=== PATIENT | female | born 1945 | race American Indian/Alaskan Native ===

== ENCOUNTER 2016-11-30 06:26 | Emergency (ER) | payer MEDICARE, OTHER ==
[~2016-11-30] VITALS: Ht 157.5 cm; Wt 90.3 kg
[~2016-11-30 06:26] MED LIST: ACETAMINOPHEN650 M1 PO; ASPIRIN EC325 MG PO; ASPIRIN EC81 MG PO; ATENOLOL100 MG PO; B-12500 MCG PO; CALCIO DEL MAR500 MG PO; CALCIUM 600 +1 EAC3 PO; CALCIUM600 MG PO; CLARITIN10 M2 PO; CLONAZEPAM0.5 MG PO; DETROL LA2 MG PO; DETROL2 MG PO; DIALYVITE V5000 UNIT PO; DILTIAZEM 24HR120 MG PO; DILTIAZEM ER180 MG PO; DOCUSATE SODIU100 MG PO; DUCODYL5 MG PO; ELIQUIS5 MG PO; FERROUS SULFAT325 MG PO; FOLIC ACID1 MG PO; FUROSEMIDE20 MG PO; K-TAB10 MEQ PO; KLOR-CON 1010 MEQ PO; LASIX20 MG PO; LEVOFLOXACIN500 MG PO; LEVOTHYROXINE75 MCG PO; LEVOTHYROXINE88 MCG PO; MAG-OXIDE400 MG PO; MELATONIN1 MG PO; METOPROLOL SUC200 MG PO; MORPHINE SULFAT15 M1 PO; MORPHINE SULFAT30 M1 PO; MORPHINE SULFAT30 M2 PO; NITROGLYCERIN0.4 MG SL; NYSTOP60 GM TOP; OMEPRAZOLE20 MG PO; PERCOCET 10-321 EACH PO; POTASSIUM CHLO10 MEQ PO; POTASSIUM CHLO20 ME1 PO; PREVACID15 MG PO; PRILOSEC20 MG PO; PV NEURO VITE1 EACH PO; SENNA LAX8.6 MG PO; SERTRALINE HCL100 MG PO; TOPROL XL100 MG PO; TORSEMIDE5 MG PO; TRIAMTERENE-HC1 EAC1 PO; TRIAMTERENE-HC1 EAC3 PO; ZOLOFT100 MG PO
[2016-11-30] MEDS ORDERED: ZOFRAN ODT4 MG PO (08:12)
--- NOTE | 2016-11-30 17:36 | EKG ---
[facility] [address] [facility] [place] [address] Signed Atrial fibrillation with rapid ventricular response Left axis deviation Pulmonary disease pattern T wave abnormality, consider anterior ischemia Abnormal ECG When compared with ECG of 14-SEP-2016 20:31, Questionable change in QRS axis T wave inversion no longer evident in Inferior leads T wave inversion no longer evident in Lateral leads Confirmed by MEMO HERZOG MD ([id number]) on 11/30/2016 5:36:40 PM Electronically Signed By: MEMO HERZOG MD 11/30/16 1736 PATIENT NAME: TIM MOMIN ABHAY Electrocardiogram DATE OF : 41 PHYSICIAN: MEMO HERZOG MD REPORT #: [id number] REPORT IS CONFIDENTIAL AND NOT TO BE RELEASED WITHOUT AUTHORIZATION
== END 2016-11-30 10:49 | disposition home or self-care (01) ==
LOC: ED 06:26
DX: G89.29 Other chronic pain (principal); M53.3 Sacrococcygeal disorders, not elsewhere classified; I48.91 Unspecified atrial fibrillation; Z86.73 Personal history of transient ischemic attack (TIA), and cerebral infarction without residual deficits; I10 Essential (primary) hypertension; D51.0 Vitamin B12 deficiency anemia due to intrinsic factor deficiency; R11.2 Nausea with vomiting, unspecified; Z90.710 Acquired absence of both cervix and uterus; Z98.51 Tubal ligation status; Z90.49 Acquired absence of other specified parts of digestive tract; Z88.0 Allergy status to penicillin; Z88.4 Allergy status to anesthetic agent; Z88.5 Allergy status to narcotic agent; Z88.1 Allergy status to other antibiotic agents; Z88.8 Allergy status to other drugs, medicaments and biological substances; Z91.041 Radiographic dye allergy status; Z79.891 Long term (current) use of opiate analgesic; Z79.899 Other long term (current) drug therapy
CPT/HCPCS: 71010; 80053; 84484; 85025; 93005; 93010; 96361; 96374; 96375; 99283; J1170; J2405; J7030

== ENCOUNTER 2017-01-24 17:54 | Emergency (ER) | payer MEDICARE, OTHER ==
[~2017-01-24] VITALS: Ht 157.5 cm; Wt 88.5 kg
[~2017-01-24 17:54] MED LIST changes: +ZOFRAN ODT4 MG PO
[2017-01-24] MEDS ORDERED: DICYCLOMINE HCL20 MG PO (23:53)
== END 2017-01-25 00:03 | disposition home or self-care (01) ==
LOC: ED 17:54
DX: K52.9 Noninfective gastroenteritis and colitis, unspecified (principal); I10 Essential (primary) hypertension; Z86.73 Personal history of transient ischemic attack (TIA), and cerebral infarction without residual deficits; Z90.710 Acquired absence of both cervix and uterus; Z98.51 Tubal ligation status; Z98.890 Other specified postprocedural states; Z96.651 Presence of right artificial knee joint; Z96.641 Presence of right artificial hip joint; Z88.1 Allergy status to other antibiotic agents; Z88.5 Allergy status to narcotic agent; Z88.8 Allergy status to other drugs, medicaments and biological substances; Z91.038 Other insect allergy status; Z79.899 Other long term (current) drug therapy
CPT/HCPCS: 74177; 80053; 81001; 83690; 85025; 87077; 87088; 87186; 96361; 96374; 96375; 96376; 99284; J1170; J2405; J7030; Q9967

== ENCOUNTER 2018-07-28 11:23 | Inpatient (IN) | payer MEDICARE, OTHER ==
[~2018-07-28] VITALS: Ht 157.5 cm; Wt 60.3 kg
--- OUTSIDE RECORDS SUMMARY | ~2018-07-28 | XMS | Encounter Summary ---
Demographics + + + | Address | [address] | | | [place] [address] | + + + | Home Phone | | + + + | Preferred Language | Unknown | + + + | Marital Status | | + + + | Roman Catholic Affiliation | 1041 | + + + | Race | Unknown | + + + | Ethnic Group | Unknown | + + + Author + + + | Author | [facility] | | | and [place] | + + + | Organization | [facility] | | | and [place] | + + + | Address | Unknown | + + + | Phone | Unavailable | + + + Support + + +---------+ + | Name | Relationship | Address | Phone | + + +---------+ + | TanmayGirish | ECON | Unknown | | + + +---------+ + | Shakila Rosas | ECON | Unknown | | + + +---------+ + Care Team Providers + +------+ + | Care Lead Etl Developer Name | Role | Phone | + +------+ + | No, Physician | PCP | Unavailable | + +------+ + Reason for Visit Auth/Cert +--------+--------+ + + + + | Status | Reason | Specialty | Diagnoses / | Referred By | Referred To | | | | | Procedures | Contact | Contact | +--------+--------+ + + + + | | | | | | | +--------+--------+ + + + + Encounter Details +--------+ + + + + | Date | Type | Department | Care Team | Description | +--------+ + + + + | 07/21/ | Home Care | PR[facility]ARTIN | Lisa Kearns RN | SN REPEAT VISIT | | 2018 | Visit | [place] [address] | | | | | | [place] | | | | | | [address] | | | | | | [phone] | | | +--------+ + + + + Social History + +-------+ +--------+------+ | Tobacco Use | Types | Packs/Day | Years | Date | | | | | Used | | + +-------+ +--------+------+ | Never Smoker | | | | | + +-------+ +--------+------+ + +---+---+---+ | Smokeless Tobacco: | | | | | Never Used | | | | + +---+---+---+ + + +---------+ + | Alcohol Use | Drinks/We | oz/Week | Comments | | | ek | | | + + +---------+ + | No | | | | + + +---------+ + + + + | Sex Assigned at | Date Recorded | | | | + + + | Not on file | | + + + + + + + | Job Start Date | Occupation | Industry | + + + + | Not on file | Not on file | Not on file | + + + + + + + + | Travel History | Travel Start | Travel End | + + + + + + | No recent travel history available. | + + documented as of this encounter Last Filed Vital Signs + + + + | Vital Sign | Reading | Time Taken | + + + + | Blood Pressure | 98/48 | 07/21/2018952 PDT | + + + + | Pulse | 60 | 07/21/2018952 PDT | + + + + | Temperature | 35.9 C (96.7 F) | 07/21/2018952 PDT | + + + + | Respiratory Rate | 16 | 07/21/2018952 PDT | + + + + | Oxygen Saturation | 95% | 07/21/2018952 PDT | + + + + | Inhaled Oxygen | - | - | | Concentration | | | + + + + | Weight | - | - | + + + + | Height | - | - | + + + + | Body Mass Index | - | - | + + + + documented in this encounter Plan of Treatment +--------+ + + + + | Date | Type | Specialty | Care Team | Description | +--------+ + + + + | 07/28/ | Home Care | Home Health Services | Won Zafar, | | | 2019 | Visit | | CONCRETE CURER [address] | | | | | | [place] | | | | | | [address] | | +--------+ + + + + | 08/01/ | Home Care | Home Health Services | | | | 2018 | Visit | | | | +--------+ + + + + | 08/01/ | Home Care | Home Health Services | Won Zafar, | | | 2018 | Visit | | CONCRETE [facility]ER [address] | | | | | | [place] | | | | | | [address] | | +--------+ + + + + | 08/03/ | Home Care | Home Health Services | Won Zafar, | | | 2018 | Visit | | CONCRETE [facility] [address] | | | | | | [place] | | | | | | [address] | | +--------+ + + + + | 08/04/ | Home Care | Home Health Services | Lisa Kearns RN | | | 2018 | Visit | | | | +--------+ + + + + | 08/08/ | Home Care | Home Health Services | Lisa Kearns RN | | | 2018 | Visit | | | | +--------+ + + + + | 08/08/ | Home Care | Home Health Services | Won Zafar, | | | 2018 | Visit | | CONCR[facility] [address] | | | | | | [place] | | | | | | [address] | | +--------+ + + + + | 08/10/ | Home Care | Home Health Services | Billy Jett, | | | 2018 | Visit | | PT [address] | | | | | | [place] | | | | | | [address] | | | | | | | | +--------+ + + + + | 08/11/ | Appointment | Home Health Services | Lisa Kearns RN | | | 2019 | | | | | +--------+ + + + + documented as of this encounter Visit Diagnoses Not on filedocumented in this encounter"
--- OUTSIDE RECORDS SUMMARY | ~2018-07-28 | XMS | Encounter Summary ---
Demographics + + + | Address | [address] | | | [place] [address] | + + + | Home Phone | | + + + | Preferred Language | Unknown | + + + | Marital Status | | + + + | Temple Affiliation | 1041 | + + + | Race | Unknown | + + + | Ethnic Group | Unknown | + + + Author + + + | Author | [facility] | | | and [place] | + + + | Organization | [facility] | | | and [place] | + + + | Address | Unknown | + + + | Phone | Unavailable | + + + Support + + +---------+ + | Name | Relationship | Address | Phone | + + +---------+ + | Girish Donato | ECON | Unknown | | + + +---------+ + | Shakila Rosas | ECON | Unknown | | + + +---------+ + Care Team Providers + +------+ + | Care Product Marketing Consultant Name | Role | Phone | + +------+ + | Juan Mcclain DO | PCP | | + +------+ + Reason for Visit [...] | +--------+ + + + + | 06/17/ | Home Care | PROV JULISSA MARTIN | Nicole Hernandez | SN REPEAT VISIT | | 2019 | Visit | [place] [address] | [place] [address] | | | | | [place] | | | | | | [address] | | | | | | [phone] | | | +--------+ + + + [...] + + + | Blood Pressure | 94/60 | 06/17/20181612 PDT | + + + + | Pulse | 57 | 06/17/20181612 PDT | + + + + | Temperature | 35.9 C (96.6 F) | 06/17/20181612 PDT | + + + + | Respiratory Rate | 16 | 06/17/20181612 PDT | + + + + | Oxygen Saturation | 98% | 06/17/20181612 PDT | + + + + | [...] | | 2019 | Visit | | APPELLATE [facility]FEREE [address] | | | | | | [place] | | | | | | [address] | | +--------+ + + + + | 08/01/ | Home Care | Home Health Services | | | | 2018 | Visit | | | | +--------+ + + + + | 08/01/ | Home Care | Home Health Services | Won Zafar, | | | 2018 | Visit | | APPELLATE CONFEREE [address] | | | | | | [place] | | | | | | [address] | | +--------+ + + + + | 08/03/ | Home Care | Home Health Services | Won Zafar, | | | 2018 | Visit | | [facility] [address] | | | | | | [place] | | | | | | [address] | | +--------+ + + + + | 08/04/ | Home Care | Home Health Services | Lisa Kearns RN | | | 2019 | Visit | | | | +--------+ + + + + | 08/08/ | Home Care | Home Health Services | Lisa Kearns RN | | | 2019 | Visit | | | | +--------+ + + + + | 08/08/ | Home Care | Home Health Services | Won Zafar, | | | 2018 | Visit | | [facility] [address] | | | | | | [place] | | | | | | [address] | | +--------+ + + + + | 08/10/ | Home Care | Home Health Services | Billy Jett, | | | 2019 | Visit | | PT [address] | | | | | | [place] | | | | | | [address] | | | | | | | | +--------+ + + + + | 08/11/ | Appointment | Home Health Services | Lisa Kearns RN | | | 2019 | | | | | +--------+ + + + + documented as of this encounter Visit Diagnoses Not on filedocumented in this encounter"
--- OUTSIDE RECORDS SUMMARY | ~2018-07-28 | XMS | Encounter Summary ---
Demographics + + + | Address | [address] | | | [place] [address] | + + + | Home Phone | | + + + | Preferred Language | Unknown | + + + | Marital Status | | + + + | Sabianism Affiliation | 1041 | + + + | Race | Unknown | + + + | Ethnic Group | Unknown | + + + Author + + + | Author | [facility] | | | and [place] | + + + | Organization | [facility] | | | [...] Team Providers + +------+ + | Care Itinerant Teacher Assistant Name | Role | Phone | + [...] | +--------+ + + + + | 07/27/ | Home Care | STEVE MARTIN | Rukhsana, | TELEPHONE ENCOUNTER | | 2018 | Visit | [place] [address] | Marlyn Clemens RN | | | | | [place] | | | | | | [address] | | | | | | [phone] | | | +--------+ + + + [...] + + documented as of this encounter Plan of Treatment +--------+ + + + + | Date | Type | Specialty | Care Team | Description | +--------+ + + + + | 07/28/ | Home Care | Home Health Services | Won Zafar, | | | 2018 | Visit | | PARTS PICKER [address] | | | | | | [place] | | | | | | [address] | | +--------+ + + + + | 08/01/ | Home Care | Home Health Services | | | | 2018 | Visit | | | | +--------+ + + + + | 08/01/ | Home Care | Home Health Services | Won Zafar, | | | 2018 | Visit | | [facility] [facility] [address] | | | | | | [place] | | | | | | [address] | | +--------+ + + + + | 08/03/ | Home Care | Home Health Services | Won Zafar, | | | 2018 | Visit | | [facility]S [facility] [address] | | | | | | [place] | | | | | | [address] | | +--------+ + + + + [...] | | 2018 | Visit | | [facility] [address] | | | | | | [place] | | | | | | [address] | | +--------+ + + + + | 08/10/ | Home Care | Home Health Services | Billy Jett, | | | 2019 | Visit | | PT [address] | | | | | | [place] | | | | | | [address] | | | | | | | | +--------+ + + + + | 08/11/ | Appointment | Home Health Services | Lisa Kearns RN | | | 2019 | | | | | +--------+ + + + + documented as of this encounter Visit Diagnoses Not on filedocumented in this encounter"
--- OUTSIDE RECORDS SUMMARY | ~2018-07-28 | XMS | Encounter Summary ---
Demographics + + + | Address | [address] | | | [place] [address] | + + + | Home Phone | | + + + | Preferred Language | Unknown | + + + | Marital Status | | + + + | Gnosticist Affiliation | 1041 | + + + | Race | Unknown | + + + | Ethnic Group | Unknown | + + + Author + + + | Author | [facility] | | | and [place] | + + + | Organization | [facility] | | [...] Team Providers + +------+ + | Care Triage Specialist Name | Role | Phone | + [...] | +--------+ + + + + | 07/25/ | Home Care | PROV JULISSA MARTIN | Lisa Kearns RN | SN REPEAT VISIT | | 2018 | Visit | [place] [address] | | | | | | [place] | | | | | | [address] | | | | | | [phone] | | | +--------+ + + + [...] + + + | Blood Pressure | 104/48 | 07/25/2018958 PDT | + + + + | Pulse | 52 | 07/25/2018958 PDT | + + + + | Temperature | 36.8 C (98.2 F) | 07/25/2018958 PDT | + + + + | Respiratory Rate | 16 | 07/25/2018958 PDT | + + + + | Oxygen Saturation | 92% | 07/25/2018958 PDT | + + + + | [...] | | 2019 | Visit | | PRODUCTION OPERATIONS ENGINEER [address] | | | | | | [place] | | | | | | [address] | | +--------+ + + + + | 08/01/ | Home Care | Home Health Services | | | | 2018 | Visit | | | | +--------+ + + + + | 08/01/ | Home Care | Home Health Services | Won Zafar, | | | 2018 | Visit | | PRODUCTION OPERATIONS ENGINEER [address] | | | | | | [place] | | | | | | [address] | | +--------+ + + + + | 08/03/ | Home Care | Home Health Services | Won Zafar, | | | 2018 | Visit | | PRODUCTION OPERATIONS ENGINEER [address] | | | | | | [place] | | | | | | [address] | | +--------+ + + + + [...] | | 2018 | Visit | | PRODUCTION OPERATIONS ENGINEER [address] | | | | | | [place] | | | | | | [address] | | +--------+ + + + + | 08/10/ | Home Care | Home Health Services | Billy Jett, | | | 2018 | Visit | | PT [address] | | | | | | [place] | | | | | | [address] | | | | | | | | +--------+ + + + + | 08/11/ | Appointment | Home Health Services | Lisa Kearns RN | | | 2019 | | | | | +--------+ + + + + documented as of this encounter Visit Diagnoses Not on filedocumented in this encounter"
--- OUTSIDE RECORDS SUMMARY | ~2018-07-28 | XMS | Encounter Summary ---
Demographics + + + | Address | [address] | | | [place] [address] | + + + | Home Phone | | + + + | Preferred Language | Unknown | + + + | Marital Status | | + + + | Zoroastrianism Affiliation | 1041 | + + + | Race | Unknown | + + + | Ethnic Group | Unknown | + + + Author + + + | Author | [facility] | | | and [place] | + + + | Organization | [facility] | | [...] Team Providers + +------+ + | Care Accounts Collector Name | Role | Phone | + [...] [place] | | | | | | [address] | | | | | | [phone] | | | +--------+ + + + [...] Home Health Services | | | | 2019 | Visit | | | | +--------+ + + + + | 08/01/ | Home Care | Home Health Services | Won Zafar, | | | 2018 | Visit | | [facility] [address] | | | | | | [place] | | | | | | [address] | | +--------+ + + + + | 08/03/ | Home Care | Home Health Services | Won Zafar, | | | 2018 | Visit | | [facility] [address] | | | | | | [place] | | | | | | [address] | | +--------+ + + + + [...] | 2018 | Visit | | [facility] [address] | | | | | | [place] | | | | | | [address] | | +--------+ + + + + | 08/10/ | Home Care | Home Health Services | Billy Jett, | | | 2018 | Visit | | PT [address] | | | | | | [place] | | | | | | [address] | | | | | | | | +--------+ + + + + | 08/11/ | Appointment | Home Health Services | Lisa Kearns RN | | | 2018 | | | | | +--------+ + + + + documented as of this encounter Visit Diagnoses Not on filedocumented in this encounter"
--- OUTSIDE RECORDS SUMMARY | ~2018-07-28 | XMS | Encounter Summary ---
Demographics + + + | Address | [address] | | | [place] [address] | + + + | Home Phone | | + + + | Preferred Language | Unknown | + + + | Marital Status | | + + + | Sabianist Affiliation | 1041 | + + + | Race | Unknown | + + + | Ethnic Group | Unknown | + + + Author + + + | Author | [facility] | | | and [place] | + + + | Organization | [facility] | | | [...] Team Providers + +------+ + | Care Certified Hearing Instrument Dispenser Name | Role | Phone | + +------+ + | Oscar Hodgson DO | PCP | | + +------+ [...] | +--------+ + + + + | 07/11/ | Home Care | [facility] | Won Zafar, | PT REPEAT VISIT | | 2019 | Visit | [place] [address] | RHEOLOGIST [address] | | | | | [place] | | | | | [address] | [address] | | | | | [phone] | | | +--------+ + + + [...] this encounter Last Filed Vital Signs + +---------+ + | Vital Sign | Reading | Time Taken | + +---------+ + | Blood Pressure | 95/60 | 07/11/20181119 PDT | + +---------+ + | Pulse | 50 | 07/11/20181119 PDT | + +---------+ + | Temperature | - | - | + +---------+ + | Respiratory Rate | - | - | + +---------+ + | Oxygen Saturation | 97% | 07/11/20181119 PDT | + +---------+ + | Inhaled Oxygen | - | - | | Concentration | | | + +---------+ + | Weight | - | - | + +---------+ + | Height | - | - | + +---------+ + | Body Mass Index | - | - | + +---------+ + documented in this encounter Plan of Treatment +--------+ + + + + | Date | Type | Specialty | Care Team | Description | +--------+ + + + + | 07/28/ | Home Care | Home Health Services | Won Zafar, | | | 2018 | Visit | | RHEOLOGIST [address] | | | | | | [place] | | | | | | [address] | | +--------+ + + + + | 08/01/ | Home Care | Home Health Services | | | | 2018 | Visit | | | | +--------+ + + + + | 08/01/ | Home Care | Home Health Services | Won Zafar, | | | 2018 | Visit | | RHEOLOGIST [address] | | | | | | [place] | | | | | | [address] | | +--------+ + + + + | 08/03/ | Home Care | Home Health Services | Won Zafar, | | | 2018 | Visit | | RHEOLOGIST [address] | | | | | | [place] | | | | | | [address] | | +--------+ + + + + | 08/04/ | Home Care | Home Health Services | Lisa Kearns RN | | | 2018 | Visit | | | | +--------+ + + + + | 08/08/ | Home Care | Home Health Services | Lisa Kearns RN | | 2018 | Visit | | | | +--------+ + + + + | 08/08/ | Home Care | Home Health Services | Won Zafar, | | | 2018 | Visit | | RHEOLOGIST [address] | | | | | | [place] | | | | | | [address] | | +--------+ + + + + | 08/10/ | Home Care | Home Health Services | Billy Jett, | | | 2018 | Visit | | PT [address] | | | | | | [place] | | | | | | [address] | | | | | | | | +--------+ + + + + | 08/11/ | Appointment | Home Health Services | Lisa Kearns RN | | | 2018 | | | | | +--------+ + + + + documented as of this encounter Visit Diagnoses Not on filedocumented in this encounter"
--- OUTSIDE RECORDS SUMMARY | ~2018-07-28 | XMS | Clinical Summary ---
Demographics + + + | Address | [address] | | | [place] [address] | + + + | Home Phone | | + + + | Preferred Language | Unknown | + + + | Marital Status | Unknown | + + + | Confucianism Affiliation | 1041 | + + + | Race | Unknown | + + + | Ethnic Group | Unknown | + + + Author + + + | Author | [facility] | + + + | Organization | [facility] | + + + | Address | Unknown | + + + | Phone | Unavailable | + + + Support + + +---------+ + | Name | Relationship | Address | Phone | + + +---------+ + | Margaret Silva | ECON | Unknown | | + + +---------+ + | Shakila Rosas | ECON | Unknown | | + + +---------+ + | Girish Donato | ECON | Unknown | | + + +---------+ + Care Team Providers + +------+ + | Care Hydroelectric Production Manager Name | Role | Phone | + +------+ + | Juan Mcclain MD | PP | | + +------+ + Allergies + + + + + + | Active Allergy | Reactions | Severity | Noted | Comments | | | | | Date | | + + + + + + | Adhesive Tape | Rash | Medium | 10/11/19 | | | | | | 18 | | + + + + + + | Bee Venom | Swelling | High | 09/22/19 | | | | | | 17 | | + + + + + + | Butorphanol | Hallucinations | Medium | 09/22/19 | | | | | | 17 | | + + + + + + | Codeine | Hives, Rash | High | 09/22/19 | Hypersensitivity | | | | | 17 | | + + + + + + | Diphenhydramine | Other (See Comments) | Medium | 09/22/19 | Drowsiness | | | | | 17 | | + + + + + + | Gabapentin | Sedation | Low | 09/22/19 | | | | | | 17 | | + + + + + + | Hydrochlorothiazide | Syncope | Medium | 09/22/19 | | | | | | 17 | | + + + + + + | Ibuprofen | Other (See Comments) | Medium | 09/22/19 | Stomach pains | | | | | 17 | | + + + + + + | Indomethacin | Hives, Rash | High | 09/22/19 | | | | | | 17 | | + + + + + + | Lisinopril | Other (See Comments) | Medium | 09/22/19 | Dry cough | | | | | 17 | | + + + + + + | Methadone | Hallucinations | Medium | 09/22/19 | | | | | | 17 | | + + + + + + | Neomycin | Rash | Medium | 09/22/19 | | | | | | 17 | | + + + + + + | Nifedipine | Other (See Comments) | Medium | 09/22/19 | Low blood | | | | | 17 | pressures | + + + + + + | Penicillins | Swelling | Medium | 09/22/19 | | | | | | 17 | | + + + + + + | Pentazocine | Hives, Rash | High | 09/22/19 | | | | | | 17 | | + + + + + + | Tramadol | Hallucinations | Medium | 09/22/19 | | | | | | 17 | | + + + + + + | Zolpidem | Hallucinations | Medium | 09/22/19 | | | | | | 17 | | + + + + + + Current Medications + + +---------+---------+------+------+-------+ | Prescription | Sig. | Disp. | Refills | Star | End | Statu | | | | | | t | Date | s | | | | | | Date | | | + + +---------+---------+------+------+-------+ | Calcium | Take 600 mg by mouth | | | | | Activ | | Carbonate-Vitamin D | 2 (two) times | | | | | e | | (CALCIUM-CARB 600 + | daily. | | | | | | | D) 600-125 MG-UNIT | | | | | | | | TABS | | | | | | | + + +---------+---------+------+------+-------+ | tolterodine | Take 2 mg by mouth | | | | | Activ | | (DETROL LA) 2 MG 24 | daily. | | | | | e | | hr capsule | | | | | | | + + +---------+---------+------+------+-------+ | apixaban (ELIQUIS) | Take 5 mg by mouth 2 | | | | | Activ | | 5 MG tablet | (two) times daily. | | | | | e | + + +---------+---------+------+------+-------+ | folic acid | Take 1 mg by mouth | | | | | Activ | | (FOLVITE) 1 MG | every morning. | | | | | e | | tablet | | | | | | | + + +---------+---------+------+------+-------+ | levothyroxine | Take 88 mcg by mouth | | | | | Activ | | (SYNTHROID) 88 MCG | every morning | | | | | e | | tablet | before breakfast. | | | | | | + + +---------+---------+------+------+-------+ | Loratadine 10 MG | Take 10 mg by mouth | | | | | Activ | | CAPS | daily. | | | | | e | + + +---------+---------+------+------+-------+ | magnesium oxide | Take 400 mg by mouth | | | | | Activ | | (MAG-OX) 400 MG | daily. | | | | | e | | tablet | | | | | | | + + +---------+---------+------+------+-------+ | Melatonin 1 MG | Take 2 mg by mouth | | | | | Activ | | CAPS | nightly. | | | | | e | + + +---------+---------+------+------+-------+ | morphine (MS | Take 30 mg by mouth | | | | | Activ | | CONTIN) 30 MG 12 hr | 2 (two) times daily. | | | | | e | | tablet | | | | | | | + + +---------+---------+------+------+-------+ | nitroGLYCERIN | Place 0.4 mg under | | | | | Activ | | (NITROSTAT) 0.4 MG | the tongue every 5 | | | | | e | | SL tablet | (five) minutes as | | | | | | | | needed for Chest | | | | | | | | pain. | | | | | | + + +---------+---------+------+------+-------+ | omeprazole | Take 20 mg by mouth | | | | | Activ | | (PRILOSEC) 20 MG | every morning before | | | | | e | | capsule | breakfast. | | | | | | + + +---------+---------+------+------+-------+ | | Take 1 tablet by | | | | | Activ | | oxyCODONE-acetaminop | mouth every 8 | | | | | e | | hen (PERCOCET) | (eight) hours as | | | | | | | 10-325 MG per tablet | needed for Pain. | | | | | | | | Takes 1-3 pills per | | | | | | | | day | | | | | | + + +---------+---------+------+------+-------+ | sertraline | Take 100 mg by mouth | | | | | Activ | | (ZOLOFT) 100 MG | nightly. | | | | | e | | tablet | | | | | | | + + +---------+---------+------+------+-------+ | docusate sodium | Take 100 mg by mouth | | | | | Activ | | (COLACE) 100 MG | daily as needed. | | | | | e | | capsule | | | | | | | + + +---------+---------+------+------+-------+ | ondansetron | Take 4 mg by mouth | | | | | Activ | | (ZOFRAN-ODT) 4 MG | every 6 (six) hours | | | | | e | | disintegrating | as needed for | | | | | | | tablet | Nausea. Takes 3 | | | | | | | | times per month | | | | | | + + +---------+---------+------+------+-------+ | Multiple | Take 1 tablet by | | | | | Activ | | Vitamins-Minerals | mouth daily. | | | | | e | | (MULTIVITAMIN WITH | | | | | | | | MINERALS) tablet | | | | | | | + + +---------+---------+------+------+-------+ | carbamide peroxide | 5 drops as needed. | | | | | Activ | | (DEBROX) 6.5 % otic | | | | | | e | | solution | | | | | | | + + +---------+---------+------+------+-------+ | loperamide | Take 2 mg by mouth | | | | | Activ | | (IMODIUM) 2 MG | as needed for | | | | | e | | capsule | Diarrhea. 1-2 times | | | | | | | | per week | | | | | | + + +---------+---------+------+------+-------+ | bisoprolol | Take 1 tablet by | 30 | 11 | 09/25 | 09/25 | Activ | | (ZEBETA) 10 MG | mouth nightly. | tablet | | 6/20 | 20 | e | | tablet | | | | 18 | 19 | | + + +---------+---------+------+------+-------+ | digoxin (LANOXIN) | Take 1 tablet by | 30 | 11 | 09/25 | 09/25 | Activ | | 0.125 MG tablet | mouth daily. | tablet | | 6/20 | 6/20 | e | | | | | | 18 | 19 | | + + +---------+---------+------+------+-------+ | potassium chloride | Take 1 capsule by | 30 | 11 | 07 | 09/25 | Activ | | (MICRO-K) 10 MEQ CR | mouth daily. | capsule | | 6/20 | 6/20 | e | | capsule | | | | 18 | 19 | | + + +---------+---------+------+------+-------+ | furosemide (LASIX) | Take 1 tablet by | 30 | 11 | 07/ | | Activ | | 20 MG tablet | mouth daily. | tablet | | 0/20 | | e | | | | | | 18 | | | + + +---------+---------+------+------+-------+ | rOPINIRole | Take 1 mg by mouth | | | | | Activ | | (REQUIP) 1 MG tablet | nightly. | | | | | e | + + +---------+---------+------+------+-------+ | bisacodyl | Take 10 mg by mouth | | | | | Activ | | (DULCOLAX) 5 MG EC | daily as needed for | | | | | e | | tablet | Constipation. Take | | | | | | | | with 8 oz. water. | | | | | | + + +---------+---------+------+------+-------+ Active Problems + + + | Problem | Noted Date | + + + | Chronic systolic heart failure (HCC) | 10/10/2017 | + + + | History of stroke with residual deficit | 10/10/2017 | + + + | Hypokalemia | 10/10/2017 | + + + | Thyroid disease | 10/10/2017 | + + + | Current use of fci anticoagulation | 10/10/2017 | + + + | Atrial fibrillation (HCC) | 06/07/2016 | + + + + + | Overview: with RVR | + + + +---+ | Dilated cardiomyopathy (HCC) | | + +---+ | HTN, goal below 140/90 | | + +---+ + + | Overview: many years | + + + +---+ | CVA (cerebral vascular accident) | | + +---+ + + | Overview: x 3 - 2000 > tPA, 2002 > tPA, 2003, residual right | | sided hemiparesis | + + Resolved Problems +---------+--------+ + | Problem | Noted | Resolved | | | Date | Date | +---------+--------+ + | Anemia | | | | | | 8 | +---------+--------+ + + + | Overview: History of pernicious anemia | + + Family History + + +------+ + | Medical History | Relation | Name | Comments | + + +------+ + | Coronary art dis | Brother | | | + + +------+ + | Coronary art dis | Brother | | | + + +------+ + | Diabetes type I | Daughter | | | + + +------+ + | Diabetes type I | Daughter | | | + + +------+ + | Aneurysm | Mother | | | + + +------+ + | Heart disease | Mother | | | + + +------+ + | Hypertension | Mother | | | + + +------+ + | Lupus | Sister | | | + + +------+ + | Lupus | Sister | | | + + +------+ + | Leukemia | Son | | | + + +------+ + + +------+ + + | Relation | Name | Status | Comments | + +------+ + + | Brother | | | half sibling | + +------+ + + | Brother | | | half sibling | + +------+ + + | Brother | | | half sibling | + +------+ + + | Brother | | Alive | half sibling | + +------+ + + | Brother | | Alive | half sibling | + +------+ + + | Brother | | Alive | half sibling | + +------+ + + | Daughter | | Alive | | + +------+ + + | Daughter | | Alive | | + +------+ + + | Daughter | | Alive | | + +------+ + + | Father | | | patient adopted-no known history | + +------+ + + | Mother | | | brain aneurysm | + +------+ + + | Sister | | | half sibling | + +------+ + + | Sister | | | half sibling | + +------+ + + | Sister | | | half sibling | + +------+ + + | Sister | | Alive | half sibling | + +------+ + + | Son | | | | + +------+ + + Social History + +-------+ +--------+------+ | Tobacco Use | Types | Packs/Day | Years | Date | | | | | Used | | + +-------+ +--------+------+ | Passive Smoke | | | | | | Exposure - Never | | | | | | Smoker | | | | | + +-------+ +--------+------+ + +---+---+---+ | Smokeless Tobacco: | | | | | Never Used | | | | + +---+---+---+ + + +---------+ + | Alcohol Use | Drinks/We | oz/Week | Comments | | | ek | | | + + +---------+ + | No | 0 | 0.0 | social drinker in younger years | | | Standard | | | | | drinks or | | | | | | | | | | equivalen | | | | | t | | | + + +---------+ + + + + | Sex Assigned at | Date Recorded | | | | + + + | Not on file | | + + + Last Filed Vital Signs + + + + | Vital Sign | Reading | Time Taken | + + + + | Blood Pressure | 116/64 | 03/02/2018 2:25 PM PST | + + + + | Pulse | 93 | 03/02/2018 2:25 PM PST | + + + + | Temperature | - | - | + + + + | Respiratory Rate | 18 | 03/02/2018 2:25 PM PST | + + + + | Oxygen Saturation | 100% | 03/02/2018 2:25 PM PST | + + + + | Inhaled Oxygen | - | - | | Concentration | | | + + + + | Weight | 66.1 kg (145 lb 11.2 | 03/02/2018 2:25 PM PST | | | oz) | | + + + + | Height | 157.5 cm (5' 2") | 03/02/2018 2:25 PM PST | + + + + | Body Mass Index | 26.65 | 03/02/2018 2:25 PM PST | + + + + Plan of Treatment +--------+---------+ + + + | Date | Type | Specialty | Care Team | Description | +--------+---------+ + + + | 08/28/ | Office | | Joanne Kaiser | | | 2019 | Visit | | [address] | | | | | | [address] | | | | | | [place] [address] | | | | | | [phone] | | | | | | | | +--------+---------+ + + + + + + + + | Health Maintenance | Due Date | Last Done | Comments | + + + + + | Vaccine: | | | | | Dtap/Tdap/Td (1 - | 3 | | | | Tdap) | | | | + + + + + | Breast Cancer | | | | | Screening | 4 | | | | (Mammogram) | | | | + + + + + | Colon Cancer | | | | | Screening | 4 | | | | (Colonoscopy) | | | | + + + + + | DEXA SCAN SCREENING | | | | | | 9 | | | + + + + + | Vaccine: | | | | | Pneumococcal 65+ | 9 | | | | Low/Medium Risk (1 | | | | | of 2 - PCV13) | | | | + + + + + | Vaccine: Influenza | | | | | (Season Ended) | 9 | | | + + + + + Results Not on filefrom Last 3 Months Insurance + +--------+ +------+-------+ + | Payer | Benefi | Subscriber | Type | Phone | Address | | | t Plan | ID | | | | | | / | | | | | | | Group | | | | | + +--------+ +------+-------+ + | MEDICARE | MEDICA | [id number] | | | [address] | | | RE | | | | [place] [address] | | | IP-OP | | | | | + +--------+ +------+-------+ + | MEDICAID | MEDICA | [id number] | | | [address] | | | ID | | | | [place] | | | [place] | | | | [address] | + +--------+ +------+-------+ + | /[employer] | YELLOW | [id number] | | | | | PLANS | [place] | | | | | + +--------+ +------+-------+ + + +--------+ +--------+ + + | Guarantor Name | Accoun | Relation to | Date | Phone | Billing Address | | | t Type | Patient | of | | | | | | | | | | + +--------+ +--------+ + + | MEHDI | Person | Self [birth year] Home: | [address] | | [place] | [place] | | 1946 | [phone] [place] | | | [place] | | | [phone] | [phone] | + +--------+ +--------+ + +
--- OUTSIDE RECORDS SUMMARY | ~2018-07-28 | XMS | Encounter Summary ---
Demographics + + + | Address | [address] | | | [place] [address] | + + + | Home Phone | | + + + | Preferred Language | Unknown | + + + | Marital Status | | + + + | Denominational Affiliation | 1041 | + + + | Race | Unknown | + + + | Ethnic Group | Unknown | + + + Author + + + | Author | [facility] | | | and [place] | + + + | Organization | [facility] | | | [...] Team Providers + +------+ + | Care Customer Care Associate Name | Role | Phone | + [...] | +--------+ + + + + | 07/04/ | Home Care | PR[facility] J[facility]SA MARTIN | Maria Del Carmen Erwin, | SN REPEAT VISIT | | 2019 | Visit | [place] [address] | [place] | | | | | [address] [place] | | | | | | [address] | | | | | | [phone] | | | +--------+ + + + [...] + + + | Blood Pressure | 90/58 | 07/04/20181299 PDT | + + + + | Pulse | 58 | 07/04/20181299 PDT | + + + + | Temperature | 36.9 C (98.4 F) | 07/04/20181299 PDT | + + + + | Respiratory Rate | 16 | 07/04/20181299 PDT | + + + + | Oxygen Saturation | 94% | 07/04/20181299 PDT | + + + + | [...] | | 2019 | Visit | | [facility] TECH [address] | | | | | | [place] | | | | | | [address] | | +--------+ + + + + | 08/01/ | Home Care | Home Health Services | | | | 2018 | Visit | | | | +--------+ + + + + | 08/01/ | Home Care | Home Health Services | Won Zafar, | | | 2018 | Visit | | [facility] TECH [address] | | | | | | [place] | | | | | | [address] | | +--------+ + + + + | 08/03/ | Home Care | Home Health Services | Won Zafar, | | | 2018 | Visit | | [facility] TECH [address] | | | | | | [place] | | | | | | [address] | | +--------+ + + + + [...] | | 2018 | Visit | | [facility] TECH [address] | | | | | | [address] [place] | | | | | | [address] | | +--------+ + + + + | 08/10/ | Home Care | Home Health Services | Billy Jett, | | | 2018 | Visit | | PT [address] | | | | | | [place] | | | | | | [address] | | | | | | | | +--------+ + + + + | 08/11/ | Appointment | Home Health Services | Lisa Kearns RN | | | 2018 | | | | | +--------+ + + + + documented as of this encounter Visit Diagnoses Not on filedocumented in this encounter"
--- OUTSIDE RECORDS SUMMARY | ~2018-07-28 | XMS | Encounter Summary ---
Demographics + + + | Address | [address] | | | [place] [address] | + + + | Home Phone | | + + + | Preferred Language | Unknown | + + + | Marital Status | | + + + | Judaism Affiliation | 1041 | + + + [...] Team Providers + +------+ + | Care Flight Engineer Inspector Name | Role | Phone | + [...] | +--------+ + + + + | 07/07/ | Home Care | PROV J[facility]SA MARTIN | Lisa Kearns RN | SN REPEAT VISIT | | 2019 | Visit | [place] [address] | | | | | | [place] | | | | | | [address] | | | | | | [phone] | | | +--------+ + + + [...] + + + | Blood Pressure | 96/54 | 07/07/2018956 PDT | + + + + | Pulse | 60 | 07/07/2018956 PDT | + + + + | Temperature | 36.3 C (97.4 F) | 07/07/2018956 PDT | + + + + | Respiratory Rate | 16 | 07/07/2018956 PDT | + + + + | Oxygen Saturation | 96% | 07/07/2018956 PDT | + + + + | [...] | +--------+ + + + + | 05/03/ | Home Care | Home Health Services | Won Zafar, | | | 2019 | Visit | | STREETCAR CONDUCTOR [address] | | | | | | [place] | | | | | | [address] | | +--------+ + + + + | 08/01/ | Home Care | Home Health Services | | | | 2018 | Visit | | | | +--------+ + + + + | 08/01/ | Home Care | Home Health Services | Won Zafar, | | | 2018 | Visit | | STREETCAR CONDUCTOR [address] | | | | | | [place] | | | | | | [address] | | +--------+ + + + + | 08/03/ | Home Care | Home Health Services | Won Zafar, | | | 2018 | Visit | | STREETCAR CONDUCTOR [address] | | | | | | [place] | | | | | | [address] | | +--------+ + + + + [...] | | 2018 | Visit | | STREETCAR CONDUCTOR [address] | | | | | | [place] | | | | | | [address] | | +--------+ + + + + | 08/10/ | Home Care | Home Health Services | Billy Jett, | | | 2019 | Visit | | PT [address] | | | | | | [place] | | | | | | [address] | | | | | | | | +--------+ + + + + | 08/11/ | Appointment | Home Health Services | Lisa Kearns RN | | | 2019 | | | | | +--------+ + + + + documented as of this encounter Visit Diagnoses Not on filedocumented in this encounter"
--- OUTSIDE RECORDS SUMMARY | ~2018-07-28 | XMS | Encounter Summary ---
Demographics + + + | Address | [address] | | | [place] [address] | + + + | Home Phone | | + + + | Preferred Language | Unknown | + + + | Marital Status | | + + + | Mormonism Affiliation | 1041 | + + + | Race | Unknown | + + + | Ethnic Group | Unknown | + + + Author + + + | Author | [facility] | | | and [place] | + + + | Organization | [facility] | | | and [...] Team Providers + +------+ + | Care Organizational Development Specialist Name | Role | Phone | [...] | +--------+ + + + + | 07/18/ | Home Care | [facility] MARTIN | Lisa Kearns RN | SN REPEAT VISIT | | 2018 | Visit | [place] [address] | | | | | | [place] | | | | | | [address] | | | | | | [phone] | | | +--------+ + + + [...] + + + | Blood Pressure | 92/40 | 07/18/2018954 PDT | + + + + | Pulse | 58 | 07/18/2018954 PDT | + + + + | Temperature | 36.1 C (97 F) | 07/18/2018954 PDT | + + + + | Respiratory Rate | 16 | 07/18/2018954 PDT | + + + + | Oxygen Saturation | 93% | 07/18/2018954 PDT | + + + + | [...] | | 2018 | Visit | | CONSTRUCTION EQUIPMENT OVERHAULER [address] | | | | | | [place] | | | | | | [address] | | +--------+ + + + + | 08/03/ | Home Care | Home Health Services | Won Zafar, | | | 2018 | Visit | | CONSTRUCTION EQUIPMENT OVERHAULER [address] | | | | | | [place] | | | | | | [address] | | +--------+ + + + + [...] | | 2018 | Visit | | CONSTRUCTION EQUIPMENT OVERHAULER [address] | | | | | | [place] | | | | | | [address] | | +--------+ + + + + | 08/10/ | Home Care | Home Health Services | Billy Jett, | | | 2018 | Visit | | PT [address] | | | | | | [place] | | | | | | [address] | | | | | | | | +--------+ + + + + | 08/11/ | Appointment | Home Health Services | Lisa Kearns RN | | 2018 | | | | | +--------+ + + + + documented as of this encounter Visit Diagnoses Not on filedocumented in this encounter"
--- OUTSIDE RECORDS SUMMARY | ~2018-07-28 | XMS | Encounter Summary ---
Demographics + + + | Address | [address] | | | [place] [address] | + + + | Home Phone | | + + + | Preferred Language | Unknown | + + + | Marital Status | | + + + | Moravian Affiliation | 1041 | + + + [...] Team Providers + +------+ + | Care Cardiology Technologist Name | Role | Phone | + [...] | 07/18/ | Home Care | [facility] [place] | Won Zafar, | TELEPHONE ENCOUNTER | | 2018 | Visit | [place] [address] | SPORTS MEDICINE TRAINER [address] | | | | | [place] | | | | | [address] | [address] | | | | | [phone] | | | +--------+ + + + [...] | | 2018 | Visit | | SPORTS MEDICINE TRAINER [address] | | | | | | [place] | | | | | | [address] | | +--------+ + + + + | 08/01/ | Home Care | Home Health Services | | | | 2018 | Visit | | | | +--------+ + + + + | 08/01/ | Home Care | Home Health Services | Won Zafar, | | | 2018 | Visit | | SPORTS MEDICINE TRAINER [address] | | | | | | [place] | | | | | | [address] | | +--------+ + + + + | 08/03/ | Home Care | Home Health Services | Won Zafar, | | | 2018 | Visit | | SPORTS MEDICINE TRAINER [address] | | | | | | [place] | | | | | | [address] | | +--------+ + + + + [...] | | 2018 | Visit | | SPORTS MEDICINE TRAINER [address] | | | | | | [place] | | | | | | [address] | | +--------+ + + + + | 08/10/ | Home Care | Home Health Services | Billy Jett, | | | 2018 | Visit | | PT [address] | | | | | | [place] | | | | | | [address] | | | | | | | | +--------+ + + + + | 08/11/ | Appointment | Home Health Services | Lisa Kearns RN | | | 2018 | | | | | +--------+ + + + + documented as of this encounter Visit Diagnoses Not on filedocumented in this encounter"
--- OUTSIDE RECORDS SUMMARY | ~2018-07-28 | XMS | Encounter Summary ---
Demographics + + + | Address | [address] | | | [place] [address] | + + + | Home Phone | | + + + | Preferred Language | Unknown | + + + | Marital Status | | + + + | Jainism Affiliation | 1041 | + + + | Race | Unknown | + + + | Ethnic Group | Unknown | + + + Author + + + | Author | [facility] | | | and [place] | + + + | Organization | [facility] | | | and [...] Team Providers + +------+ + | Care Automatic Quilling Machine Operator Name | Role | Phone | + [...] | +--------+ + + + + | 06/20/ | Home Care | [facility] [place] | Lisa Kearns RN | SN REPEAT VISIT | | 2018 | Visit | [place] [address] | | | | | | [place] | | | | | | [address] | | | | | | [phone] | | | +--------+ + + + [...] + | Blood Pressure | 98/48 | 06/20/20181005 PDT | + + + + | Pulse | 60 | 06/20/20181005 PDT | + + + + | Temperature | 36.3 C (97.3 F) | 06/20/20181005 PDT | + + + + | Respiratory Rate | 16 | 06/20/20181005 PDT | + + + + | Oxygen Saturation | 91% | 06/20/20181005 PDT | + + + + | [...] | | 2019 | Visit | | BACKEND PYTHON DEVELOPER [address] | | | | | | [place] | | | | | | [address] | | +--------+ + + + + | 08/01/ | Home Care | Home Health Services | | | | 2018 | Visit | | | | +--------+ + + + + | 08/01/ | Home Care | Home Health Services | Won Zafar, | | | 2018 | Visit | | BACKEND PYTHON DEVELOPER [address] | | | | | | [place] | | | | | | [address] | | +--------+ + + + + | 08/03/ | Home Care | Home Health Services | Won Zafar, | | | 2018 | Visit | | BACKEND PYTHON DEVELOPER [address] | | | | | | [place] | | | | | | [address] | | +--------+ + + + + [...] | | 2018 | Visit | | BACKEND PYTHON DEVELOPER [address] | | | | | | [place] | | | | | | [address] | | +--------+ + + + + | 08/10/ | Home Care | Home Health Services | Billy Jett, | | | 2019 | Visit | | PT [address] | | | | | | [place] | | | | | | [address] | | | | | | | | +--------+ + + + + | 08/11/ | Appointment | Home Health Services | Lisa Kearns RN | | | 2019 | | | | | +--------+ + + + + documented as of this encounter Visit Diagnoses Not on filedocumented in this encounter"
--- OUTSIDE RECORDS SUMMARY | ~2018-07-28 | XMS | Encounter Summary ---
Demographics + + + | Address | [address] | | | [place] [address] | + + + | Home Phone | | + + + | Preferred Language | Unknown | + + + | Marital Status | | + + + | Zoroastrian Affiliation | 1041 | + + + | Race | Unknown | + + + | Ethnic Group | Unknown | + + + Author + + + | Author | [facility] | | | and [place] | + + + | Organization | [facility] | | | and [...] Team Providers + +------+ + | Care Bee Breeder Name | Role | Phone | + [...] [place] | | | | | | [address] | | | | | | [phone] | | | +--------+ + + + [...] | +--------+ + + + + | 05/07/ | Home Care | Home Health Services | | | | 2019 | Visit | | | | +--------+ + + + + | 08/01/ | Home Care | Home Health Services | Won Zafar, | | | 2018 | Visit | | SOFTWARE ENGINEER KERNEL [address] | | | | | | [place] | | | | | | [address] | | +--------+ + + + + | 08/03/ | Home Care | Home Health Services | Won Zafar, | | | 2018 | Visit | | SOFTWARE ENGINEER KERNEL [address] | | | | | | [place] | | | | | | [address] | | +--------+ + + + + [...] | | 2018 | Visit | | SOFTWARE ENGINEER KERNEL [address] | | | | | | [address] [place] | | | | | | [address] | | +--------+ + + + + | 08/10/ | Home Care | Home Health Services | Billy Jett, | | | 2018 | Visit | | PT [address] | | | | | | [place] | | | | | | [address] | | | | | | | | +--------+ + + + + | 08/11/ | Appointment | Home Health Services | Lisa Kearns RN | | | 2018 | | | | | +--------+ + + + + documented as of this encounter Visit Diagnoses Not on filedocumented in this encounter"
--- OUTSIDE RECORDS SUMMARY | ~2018-07-28 | XMS | Encounter Summary ---
Demographics + + + | Address | [address] | | | [place] [address] | + + + | Home Phone | | + + + | Preferred Language | Unknown | + + + | Marital Status | | + + + | Sabianism Affiliation | 1041 | + + + | Race | Unknown | + + + | Ethnic Group | Unknown | + + + Author + + + | Author | [facility] | | | and [place] | + + + | Organization | [facility] | | | [...] Team Providers + +------+ + | Care Aerodynamicist Name | Role | Phone | + [...] [place] | | | | | | [address] | | | | | | [phone] | | | +--------+ + + + [...] | | 2018 | Visit | | SALES LEADER [address] | | | | | | [place] | | | | | | [address] | | +--------+ + + + + | 08/03/ | Home Care | Home Health Services | Won Zafar, | | | 2018 | Visit | | SALES LEADER [address] | | | | | | [place] | | | | | | [address] | | +--------+ + + + + [...] | | 2018 | Visit | | SALES LEADER [address] | | | | | | [address] [place] | | | | | | [address] | | +--------+ + + + + | 08/10/ | Home Care | Home Health Services | Billy Jett, | | | 2018 | Visit | | PT [address] | | | | | | [place] | | | | | | [address] | | | | | | | | +--------+ + + + + | 08/11/ | Appointment | Home Health Services | Lisa Kearns RN | | | 2019 | | | | | +--------+ + + + + documented as of this encounter Visit Diagnoses Not on filedocumented in this encounter"
--- OUTSIDE RECORDS SUMMARY | ~2018-07-28 | XMS | Encounter Summary ---
Demographics + + + | Address | [address] | | | [place] [address] | + + + | Home Phone | | + + + | Preferred Language | Unknown | + + + | Marital Status | | + + + | Pentecostal Affiliation | 1041 | + + + | Race | Unknown | + + + | Ethnic Group | Unknown | + + + Author + + + | Author | [facility] | | | and [place] | + + + | Organization | [facility] | | | and [...] Team Providers + +------+ + | Care Government Employee Name | Role | Phone | + [...] [place] | | | | | | [address] | | | | | | [phone] | | | +--------+ + + + [...] | | 2018 | Visit | | NUT PROCESS HELPER [address] | | | | | | [place] | | | | | | [address] | | +--------+ + + + + | 08/03/ | Home Care | Home Health Services | Won Zafar, | | | 2018 | Visit | | NUT PROCESS HELPER [address] | | | | | | [place] | | | | | | [address] | | +--------+ + + + + [...] | | 2018 | Visit | | NUT PROCESS HELPER [address] | | | | | | [address] [place] | | | | | | [address] | | +--------+ + + + + | 08/10/ | Home Care | Home Health Services | Billy Jett, | | | 2018 | Visit | | PT [address] | | | | | | [place] | | | | | | [address] | | | | | | | | +--------+ + + + + | 08/11/ | Appointment | Home Health Services | Lisa Kearns RN | | | 2018 | | | | | +--------+ + + + + documented as of this encounter Visit Diagnoses Not on filedocumented in this encounter"
--- OUTSIDE RECORDS SUMMARY | ~2018-07-28 | XMS | Encounter Summary ---
Demographics + + + | Address | [address] | | | [place] [address] | + + + | Home Phone | | + + + | Preferred Language | Unknown | + + + | Marital Status | | + + + | Restorationism Affiliation | 1041 | + + + | Race | Unknown | + + + | Ethnic Group | Unknown | + + + Author + + + | Author | [facility] | | | and [place] | + + + | Organization | [facility] | | | [...] Team Providers + +------+ + | Care Fender Mechanic Name | Role | Phone | + [...] | +--------+ + + + + | 06/26/ | Home Care | [facility] | Billy Jett, | PT SECONDARY EVAL | | 2019 | Visit | [place] [address] | PT [address] | | | | | [place] | [place] | | | | | [address] | [address] | | | | | [phone] | | | +--------+ + + + [...] + +---------+ + | Blood Pressure | 112/66 | 06/26/20188 PDT | + +---------+ + | Pulse | 78 | 06/26/20181637 PDT | + +---------+ + | Temperature | - | - | + +---------+ + | Respiratory Rate | - | - | + +---------+ + | Oxygen Saturation | - | - | + +---------+ + | Inhaled Oxygen [...] | | 2018 | Visit | | FUDGER [address] | | | | | | [place] | | | | | | [address] | | +--------+ + + + + | 08/03/ | Home Care | Home Health Services | Won Zafar, | | | 2018 | Visit | | FUDGER [address] | | | | | | [place] | | | | | | [address] | | +--------+ + + + + [...] | | 2018 | Visit | | FUDGER [address] | | | | | | [place] | | | | | | [address] | | +--------+ + + + + | 08/10/ | Home Care | Home Health Services | Billy Jett, | | | 2018 | Visit | | PT [address] | | | | | | [place] | | | | | | [address] | | | | | | | | +--------+ + + + + | 08/11/ | Appointment | Home Health Services | Lisa Kearns RN | | | 2018 | | | | | +--------+ + + + + documented as of this encounter Visit Diagnoses Not on filedocumented in this encounter"
--- OUTSIDE RECORDS SUMMARY | ~2018-07-28 | XMS | Encounter Summary ---
Demographics + + + | Address | [address] | | | [place] [address] | + + + | Home Phone | | + + + | Preferred Language | Unknown | + + + | Marital Status | | + + + | Baptism Affiliation | 1041 | + + + | Race | Unknown | + + + | Ethnic Group | Unknown | + + + Author + + + | Author | [facility] | | | and [place] | + + + | Organization | [facility] | | [...] Team Providers + +------+ + | Care Directional Drill Operator Name | Role | Phone | [...] [place] | | | | | | [address] | | | | | | [phone] | | | +--------+ + + + [...] | | 2019 | Visit | | BIOFUELS PRODUCTION MANAGER [address] | | | | | | [place] | | | | | | [address] | | +--------+ + + + + | 08/01/ | Home Care | Home Health Services | | | | 2018 | Visit | | | | +--------+ + + + + | 08/01/ | Home Care | Home Health Services | Won Zafar, | | | 2018 | Visit | | BIOFUELS PRODUCTION MANAGER [address] | | | | | | [place] | | | | | | [address] | | +--------+ + + + + | 08/03/ | Home Care | Home Health Services | Won Zafar, | | | 2018 | Visit | | BIOFUELS PRODUCTION MANAGER [address] | | | | | | [place] | | | | | | [address] | | +--------+ + + + + [...] | | 2018 | Visit | | BIOFUELS PRODUCTION MANAGER [address] | | | | | | [place] | | | | | | [address] | | +--------+ + + + + | 08/10/ | Home Care | Home Health Services | Billy Jett, | | | 2018 | Visit | | PT [address] | | | | | | [place] | | | | | | [address] | | | | | | | | +--------+ + + + + | 08/11/ | Appointment | Home Health Services | Lisa Kearns RN | | | 2019 | | | | | +--------+ + + + + documented as of this encounter Visit Diagnoses Not on filedocumented in this encounter"
--- OUTSIDE RECORDS SUMMARY | ~2018-07-28 | XMS | Encounter Summary ---
Demographics + + + | Address | [address] | | | [place] [address] | + + + | Home Phone | | + + + | Preferred Language | Unknown | + + + | Marital Status | | + + + | Gnosticist Affiliation | 1041 | + + + | Race | Unknown | + + + | Ethnic Group | Unknown | + + + Author + + + | Author | [facility] | | | and [place] | + + + | Organization | [facility] | | | and [...] Team Providers + +------+ + | Care Bank Vault Clerk Name | Role | Phone | + +------+ + | Juan Mcclain DO | PCP | | + +------+ + Encounter Details +--------+ + + + + | Date | Type | Department | Care Team | Description | +--------+ + + + + | 06/09/ | Home Care | [facility] [place] | Itzel Stafford, | CASE COMMUNICATION | | 2018 | Visit | [place] [address] | RN | | | | | [place] | | | | | | [address] | | | | | | [phone] | | | +--------+ + + + [...] | | 2018 | Visit | | TRUCK SERVICE MANAGER [address] | | | | | | [place] | | | | | | [address] | | +--------+ + + + + | 08/03/ | Home Care | Home Health Services | Won Zafar, | | | 2018 | Visit | | TRUCK SERVICE MANAGER [address] | | | | | | [place] | | | | | | [address] | | +--------+ + + + + [...] | | 2018 | Visit | | TRUCK SERVICE MANAGER [address] | | | | | | [place] | | | | | | [address] | | +--------+ + + + + | 08/10/ | Home Care | Home Health Services | Billy Jett, | | | 2018 | Visit | | [address] | | | | | | [place] | | | | | | [address] | | | | | | | | +--------+ + + + + | 08/11/ | Appointment | Home Health Services | Lisa Kearns RN | | | 2018 | | | | | +--------+ + + + + documented as of this encounter Visit Diagnoses Not on filedocumented in this encounter"
--- OUTSIDE RECORDS SUMMARY | ~2018-07-28 | XMS | Clinical Summary ---
Demographics + + + | Address | [address] | | | [place] [address] | + + + | Home Phone | | + + + | Preferred Language | Unknown | + + + | Marital Status | | + + + | Yazidism Affiliation | 1041 | + + + | Race | Unknown | + + + | Ethnic Group | Unknown | + + + Author + + + | Author | [facility] | | | and [place] | + + + | Organization | [facility] | | | [...] Team Providers + +------+ + | Care [employer] Name | Role | Phone | + +------+ + | No, Physician | PP | Unavailable | + +------+ + Allergies + + + + + + | Active Allergy | Reactions | Severity | Noted | Comments | | | | | Date | | + + + + + + | Bee Venom | Shortness Of Breath | High | 08/08/20 | | | | | | 16 | | + + + + + + | Butorphanol | Other (See Comments) | Low | 08/08/20 | hallucinations | | | | | 16 | | + + + + + + | Codeine | Itching | Low | 08/08/20 | | | | | | 16 | | + + + + + + | Diphenhydramine | Itching | Low | 08/08/20 | | | | | | 16 | | + + + + + + | Gabapentin | Rash | Low | 11/03/19 | | | | | | 16 | | + + + + + + | Hydrochlorothiazide | Other (See Comments) | Medium | 09/22/19 | Dizziniess | | | | | 17 | | + + + + + + | Ibuprofen | Other (See Comments) | Low | 11/03/19 | Stomach pain | | | | | 16 | | + + + + + + | Indomethacin | Other (See Comments) | | 11/03/19 | Doesn't remember | | | | | 16 | | + + + + + + | Lisinopril | Other (See Comments) | Low | 11/03/19 | Severe dizziness | | | | | 16 | | + + + + + + | Methadone | Other (See Comments) | Low | 11/03/19 | Stomach cramps | | | | | 16 | | + + + + + + | Neomycin | Rash | Low | 11/03/19 | | | | | | 16 | | + + + + + + | Nifedipine | Other (See Comments) | Medium | 09/22/19 | Low blood | | | | | 17 | pressures | + + + + + + | Penicillins | Rash | Low | 11/03/19 | Body swells | | | | | 16 | | + + + + + + | Pentazocine | Other (See Comments) | Low | 08/0820 | hallucinations | | | | | 16 | | + + + + + + | Adhesive & Tape | Other (See Comments) | Low | 08/0820 | Pulls my skin off | | | | | 16 | | + + + + + + | Tramadol | Other (See Comments) | Low | 08/0820 | hallucinations | | | | | 16 | | + + + + + + | Sheep | Itching | Low | 08/08/20 | | | | | | 16 | | + + + + + + | Zolpidem | Other (See Comments) | Low | 11/03/19 | Excessive sleeping | | | | | 16 | | + + + + + + Medications + + + +---------+------+------+-------+ | Medication | Sig | Dispensed | Refills | Star | End | Statu | | | | | | t | Date | s | | | | | | Date | | | + + + +---------+------+------+-------+ | Calcium Acetate, | Take 600 mg by mouth | | 0 | | | Activ | | Phos Binder, | 2 times daily. | | | | | e | | (CALCIUM ACETATE PO) | | | | | | | + + + +---------+------+------+-------+ | levothyroxine | Take 88 mcg by mouth | | 0 | | | Activ | | (SYNTHROID, | every morning | | | | | e | | LEVOTHROID) 88 mcg | (before breakfast). | | | | | | | tablet | | | | | | | + + + +---------+------+------+-------+ | omeprazole | Take 20 mg by mouth | | 0 | | | Activ | | (PRILOSEC) 20 mg | every morning | | | | | e | | capsule | (before breakfast). | | | | | | + + + +---------+------+------+-------+ | sertraline | Take 100 mg by mouth | | 0 | | | Activ | | (ZOLOFT) 100 mg | Daily. | | | | | e | | tablet | | | | | | | + + + +---------+------+------+-------+ | nitroglycerin | Place 0.4 mg under | | 0 | | | Activ | | (NITROSTAT) 0.4 mg | the tongue every 5 | | | | | e | | SL tablet | minutes as needed | | | | | | | | for Chest pain. | | | | | | + + + +---------+------+------+-------+ | morphine (MSIR) 30 | Take 30 mg by mouth | | 0 | | | Activ | | MG tablet | 2 times daily. | | | | | e | + + + +---------+------+------+-------+ | oxyCODONE 10 MG | Take 5-10 mg by | | 0 | | | Activ | | TABS | mouth 3 times daily. | | | | | e | + + + +---------+------+------+-------+ | dilTIAZem | Take 180 mg by | | 0 | 05/2 | 05/2 | Activ | | (CARDIZEM CD) 180 mg | mouth. | | | 2/20 | 2/20 | e | | 24 hr capsule | | | | 18 | 19 | | + + + +---------+------+------+-------+ | folic acid 1 mg | Take 1 mg by mouth. | | 0 | | | Activ | | tablet | | | | | | e | + + + +---------+------+------+-------+ | magnesium oxide | Take 400 mg by | | 0 | | | Activ | | (MAG-OX) 400 mg | mouth. | | | | | e | | tablet | | | | | | | + + + +---------+------+------+-------+ | Melatonin 1 MG | Take 2 mg by mouth. | | 0 | | | Activ | | CAPS | | | | | | e | + + + +---------+------+------+-------+ | metoprolol | Take 25 mg by mouth. | | 0 | | | Activ | | tartrate (LOPRESSOR) | | | | | | e | | 25 mg tablet | | | | | | | + + + +---------+------+------+-------+ | Multiple | Take 1 tablet by | | 0 | | | Activ | | Vitamins-Minerals | mouth Daily. | | | | | e | | (MULTIVITAMIN ADULT | | | | | | | | PO) | | | | | | | + + + +---------+------+------+-------+ | loperamide | Take 2-4 mg by mouth | | 0 | 03/2 | | Activ | | (IMODIUM A-D) 2 MG | as needed for | | | 0/20 | | e | | tablet | Diarrhea. | | | 19 | | | + + + +---------+------+------+-------+ | apixaban (ELIQUIS) | Take 7 mg by mouth 2 | | 0 | 03/2 | | Activ | | 5 mg tablet | times daily. | | | 0/20 | | e | | | | | | 19 | | | + + + +---------+------+------+-------+ | furosemide (LASIX) | Take 20 mg by mouth | | 0 | 03/2 | | Activ | | 20 mg tablet | Daily. | | | 0/20 | | e | | | | | | 19 | | | + + + +---------+------+------+-------+ | docusate sodium | Take 100-200 mg by | | 0 | 03/2 | | Activ | | (COLACE) 100 mg | mouth 2 times daily. | | | 0/20 | | e | | capsule | As needed | | | 19 | | | + + + +---------+------+------+-------+ | loratadine | Take 10 mg by mouth | | 0 | 03/2 | | Activ | | (CLARITIN) 10 mg | Daily. Indications: | | | 0/20 | | e | | tabletIndications: | Hayfever, Vasomotor | | | 19 | | | | Seasonal Allergic | Rhinitis | | | | | | | Rhinitis, Vasomotor | | | | | | | | Rhinitis | | | | | | | + + + +---------+------+------+-------+ | potassium chloride | Take 20 mEq by mouth | | 0 | 03/2 | | Activ | | 20 mEq CR tablet | Daily. | | | 0/20 | | e | | | | | | 19 | | | + + + +---------+------+------+-------+ | rOPINIRole | Take 1 mg by mouth | | 0 | 03/2 | | Activ | | (REQUIP) 1 mg tablet | nightly. | | | 0/20 | | e | | | | | | 19 | | | + + + +---------+------+------+-------+ | tolterodine | Take 2 mg by mouth | | 0 | 03/2 | | Activ | | (DETROL) 2 MG tablet | Daily. | | | 0/20 | | e | | | | | | 19 | | | + + + +---------+------+------+-------+ | Calcium Carbonate | Take 1-2 tablets by | | 0 | 03/2 | | Activ | | Antacid (TUMS PO) | mouth as needed | | | 0/20 | | e | | | (Upset Stomach). | | | 19 | | | + + + +---------+------+------+-------+ | | Take 1 tablet by | | 0 | 03/2 | | Activ | | oxyCODONE-acetaminop | mouth 3 times daily. | | | 0/20 | | e | | hen (PERCOCET) | | | | 19 | | | | 10-325 mg per tablet | | | | | | | + + + +---------+------+------+-------+ | butt paste | Apply 1 Application | | 0 | 03/2 | | Activ | | ointment CTZ | topically as needed. | | | 0/20 | | e | | | | | | 19 | | | + + + +---------+------+------+-------+ | nystatin | Apply 1 Application | | 0 | 03/2 | | Activ | | (MYCOSTATIN) [id number] | topically 3 times | | | 0/20 | | e | | UNIT/GM cream | daily. | | | 19 | | | + + + +---------+------+------+-------+ | ondansetron | Take 4 mg by mouth | | 0 | 03/2 | | Activ | | (ZOFRAN ODT) 4 mg | every 6 hours as | | | 0/20 | | e | | disintegrating | needed. | | | 19 | | | | tablet | | | | | | | + + + +---------+------+------+-------+ | BISACODYL LAXATIVE | Take 5 mg by mouth | | 0 | 03/2 | | Activ | | PO | as needed | | | 6/20 | | e | | | (constipation). | | | 19 | | | + + + +---------+------+------+-------+ | Polyethylene | Take 70 g by mouth | | 0 | 03/2 | | Activ | | Glycol 3350 (MIRALAX | as needed | | | 6/20 | | e | | PO) | (constipation). | | | 19 | | | + + + +---------+------+------+-------+ | Wheat Dextrin | Take 10 mLs by mouth | | 0 | 04/0 | | Activ | | (GOODSENSE BEST | Daily. | | | 1/20 | | e | | FIBER) MILES | | | | 19 | | | + + + +---------+------+------+-------+ | nitrofurantoin | Take 100 mg by mouth | | 0 | 04/2 | 05/0 | Activ | | (MACRODANTIN) 100 MG | 2 times daily (with | | | 07/15 | 06/14 | e | | capsule | breakfast & | | | | 19 | | | | dinner). | | | | | | + + + +---------+------+------+-------+ Active Problems + + + | Problem | Noted Date | + + + | Dilated cardiomyopathy | 09/18/2017 | + + + | Atrial fibrillation | 06/07/2016 | + + + + + | Overview: Overview: | | with RVR | + + + + + | Age-related nuclear cataract, - Oct 2015 | 11/03/2015 | + + + | Class II, BMI 35-39.9 | 11/03/2015 | + + + | H/O Hysterectomy | 11/03/2015 | + + + | Beta Soni Use | 11/03/2015 | + + + | Anxiety | | + + + | Claustrophobia | | + + + | Panic attacks | | + + + | Depression | | + + + | PONV (postoperative nausea and vomiting) | | + + + | Hypothyroid | | + + + + + | Overview: hypothyroid | + + + +---+ | Back pain | | + +---+ | CVA (cerebral vascular accident) | | + +---+ + + | Overview: x 3 - right sided weaknessOverview: x 3 - 2000 > | | tPA, 2002 > tPA2003, residual right sided hemiparesis | |Overview: | |x 3 - 2000 > tPA, 2002 > tPA2003, residual right sided hemiparesis | + + + +---+ | Hard of hearing | | + +---+ + + | Overview: needs to get hearing aids replaced | + + Encounters +--------+ + + + + | Date | Type | Specialty | Care Team | Description | +--------+ + + + + | 07/27/ | Home Care | | Rukhsana, | TELEPHONE ENCOUNTER | | 2018 | Visit | | Marlyn Clemens RN | | +--------+ + + + + | 07/25/ | Home Care | | Lisa Kearns RN | SN REPEAT VISIT | | 2019 | Visit | | | | +--------+ + + + + | 07/21/ | Home Care | | Billy Jett, | PT REASSESSMENT | | 2018 | Visit | | PT | (COUNT OR 30 DAY) | +--------+ + + + + 07/21/ | Home Care | | Lisa Kearns RN | REPEAT VISIT | | 2019 | Visit | | | | +--------+ + + + + | 07/21/ | Home Care | | Lisa Kearns RN | CASE COMMUNICATION | | 2018 | Visit | | | | +--------+ + + + + | 07/20/ | Home Care | | Aliya Jerome, | TELEPHONE ENCOUNTER | | 2018 | Visit | | RN | | +--------+ + + + + | 07/18/ | Home Care | | Lisa Kearns RN | SN REPEAT VISIT | | 2018 | Visit | | | | +--------+ + + + + | 07/18/ | Home Care | | Won Zafar, | TELEPHONE ENCOUNTER | | 2018 | Visit | | CD TECHNICIAN | | +--------+ + + + + 07/18/ | Telephone | | Oscar Hodgson | Home Health | | 2018 | | | DO Nelly | | +--------+ + + + + | 07/18/ | Lab | | Juan Mcclain, | Urinary tract | | 2019 | Requisition | | DO | infection | +--------+ + + + + | 07/14/ | Home Care | | Lisa Kearns RN | SN REPEAT VISIT | | 2018 | Visit | | | | +--------+ + + + + | 07/12/ | Home Care | | Billy Jett, | PT REPEAT VISIT | | 2018 | Visit | | PT | | +--------+ + + + + 07/11/ | Home Care | | Lisa Kearns RN | SN REPEAT VISIT | | 2019 | Visit | | | | +--------+ + + + + | 07/11/ | Home Care | | Won Zafar, | PT REPEAT VISIT | | 2018 | Visit | | CD TECHNICIAN | | +--------+ + + + + | 07/07/ | Home Care | | Lisa Kearns RN | SN REPEAT VISIT | | 2018 | Visit | | | | +--------+ + + + + | 07/06/ | Home Care | | Won Zafar, | PT REPEAT VISIT | | 2018 | Visit | | CD TECHNICIAN | | +--------+ + + + + | 07/06/ | Telephone | | Oscar Hodgson | Treatment Order | | 2019 | | | E, DO | (verbal order today | | | | | | in about 20 minutes) | +--------+ + + + + | 07/04/ | Home Care | | Maria Del Carmen Erwin, | SN REPEAT VISIT | | 2018 | Visit | | RN | | +--------+ + + + + | 07/04/ | Home Care | | Won Zafar, | PT REPEAT VISIT | | 2019 | Visit | | CD TECHNICIAN | | +--------+ + + + + | 06/30/ | Home Care | | Won Zafar, | PT REPEAT VISIT | | 2019 | Visit | | CD TECHNICIAN | | +--------+ + + + + | 06/30/ | Home Care | | Lisa Kearns RN | REPEAT VISIT | | 2018 | Visit | | | | +--------+ + + + + | 06/27/ | Home Care | | Lisa Kearns RN | REPEAT VISIT | | 2019 | Visit | | | | +--------+ + + + + | 06/27/ | Home Care | | Nadia Mclean PT | CASE COMMUNICATION | | 2019 | Visit | | | | +--------+ + + + + | 06/26/ | Home Care | | Billy Jett | MAKEDA SECONDARY EVAL | | 2018 | Visit | | PT | | +--------+ + + + + | 06/23/ | Home Care | | Lisa Kearns RN | SN REPEAT VISIT | | 2018 | Visit | | | | +--------+ + + + + | 06/20/ | Home Care | | Lisa Kearns RN | REPEAT VISIT | | 2018 | Visit | | | | +--------+ + + + + | 06/17/ | Home Care | | Nicole Hernandez | REPEAT VISIT | | 2018 | Visit | | BEATRIZ Bush | | +--------+ + + + + | 06/16/ | Home Care | | Aliya Jerome, | TELEPHONE ENCOUNTER | | 2018 | Visit | | RN | | +--------+ + + + + | 06/14/ | Home Care | | Nicole Hernandez | SN SOC (OASIS) | | 2018 | Visit | | BEATRIZ Bush | | +--------+ + + + + | 06/12/ | Home Care | | Itzel Stafford, | CASE COMMUNICATION | | 2018 | Visit | | RN | | +--------+ + + + + | 06/09/ | Home Care | | Maria Del Carmen Erwin, | CASE COMMUNICATION | | 2018 | Visit | | RN | | +--------+ + + + + | 06/09/ | Home Care | | Itzel Stafford, | CASE COMMUNICATION | | 2019 | Visit | | RN | | +--------+ + + + + from Last 3 Months Social History + +-------+ +--------+------+ | Tobacco [...] recent travel history available. | + + Last Filed Vital Signs + [...] + | Oxygen Saturation | 92% | 07/25/201859 PDT | + + + + | Inhaled Oxygen | - | - | | Concentration | | | + + + + | Weight | 65.3 kg (144 lb) | 06/14/20181112 PDT | + + + + | Height | 157.5 cm (5' 2") | 06/14/20181112 PDT | + + + + | Body Mass Index | 26.34 | 06/14/20181112 PDT | + + + + Plan of Treatment +--------+ + + + + | Date | Type | Specialty | Care Team | Description | +--------+ + + + + | 07/28/ | Home Care | | Won Zafar, | | | 2018 | Visit | | CD TECHNICIAN [address] | | | | | | [address] [place], [place] | | | | | | [phone] | | +--------+ + + + + | 08/01/ | Home Care | | | | | 2018 | Visit | | | | +--------+ + + + + | 08/01/ | Home Care | | Won Zafar, | | | 2018 | Visit | | CD TECHNICIAN [address] | | | | | | [address] [place] | | | | | | [phone] | | +--------+ + + + + | 08/03/ | Home Care | | Won Zafar, | | | 2018 | Visit | | CD TECHNICIAN [address] | | | | | | [address] [place], [place] | | | | | | [address] | | +--------+ + + + + | 08/04/ | Home Care | | Lisa Kearns RN | | | 2018 | Visit | | | | +--------+ + + + + | 08/08/ | Home Care | | Lisa Kearns RN | | | 2018 | Visit | | | | +--------+ + + + + | 08/08/ | Home Care | | Won Zafar, | | | 2018 | Visit | | CD TECHNICIAN [address] | | | | | | [address] [place] | | | | | | [address] | | +--------+ + + + + | 08/10/ | Home Care | | Billy Jett, | | | 2018 | Visit | | PT [address] | | | | | | [place] | | | | | | [address] | | | | | | | | +--------+ + + + + | 08/11/ | Appointment | | Lisa Kearns RN | | | 2019 | | | | | +--------+ + + + + + + + + + | Health Maintenance | Due Date | Last Done | Comments | + + + + + | Vaccine: | | | | | Dtap/Tdap/Td (1 - | 3 | | | | Tdap) | | | | + + + + + | Breast Cancer | | | | | Screening (Ages | 4 | | | | 50-74) | | | | + + + + + | Colorectal Cancer | | | | | Screening | 4 | | | | (Colonoscopy) | | | | + + + + + | Vaccine: | | | | | Pneumococcal 65+ | 9 | | | | Low/Medium Risk (1 | | | | | of 2 - PCV13) | | | | + + + + + | Adult Annual | | | | | Wellness Visit | 9 | | | + + + + + | Statin Therapy | | | | | (optimal intensity) | 9 | | | + + + + + | Vaccine: Influenza | | | | | (Season Ended) | 9 | | | + + + + + Implants + +--------+--------+ +--------+--------+--------+ | Implanted | Type | Area | Manufacture | Device | Shelf | Model | | | | | r | | Expira | / | | | | | | Identi | tion | Serial | | | | | | fier | Date | / Lot | + +--------+--------+ +--------+--------+--------+ | Lens Ma60ac 18.0 - | Generi | Left: | [facility] | | 10/25/ | MA60AC | | [id number]: Qty: 1 | c | Eye | - ALCN | | 2020 | 18.0 | | on 09/19/2017 by Osmar, | | | | | | /[id number] | | Hannah Bloom MD | | | | | | [id number] | | | | | | | | / | + +--------+--------+ +--------+--------+--------+ Procedures + +--------+ + + + | Procedure Name | Priori | Date/Time | Associated Diagnosis | Comments | | | ty | | | | + +--------+ + + + | URINALYSIS WITH | Routin | 07/18/2018 | Urinary tract | Results for this | | MICROSCOPIC WITH | e | 10:30 PDT | infection | procedure are in the | | CULTURE IF INDICATED | | | | results section. | + +--------+ + + + | CULTURE, URINE | Routin | 07/18/2018 | Urinary tract | Results for this | | | e | 10:30 PDT | infection | procedure are in the | | | | | | results section. | + +--------+ + + + from Last 3 Months Results Urinalysis with Microscopic with Culture if Indicated (07/18/2018 10:30 PDT) + + + + + + | Component | Value | Ref Range | Performed | Pathologist | | | | | At | Signature | + + + + + + | Color | Joyce (A) | Light Yellow, | [facility] | | | | | Yellow, Straw | [facility] | | | | | | [facility] | | + + + + + + | Clarity | Hazy (A) | Clear | [facility] | | | | | | [facility] | [facility] | | | | | | [facility] | | + + + + + + | pH, Urine | 5.0 | 5.0 - 8.0 | [facility] | | | | | | [facility] | | | [facility] | | | | | | [facility] | | + + + + + + | Specific | 1.017 | 1.001 - 1.030 | [facility] | | | [place] | | | [facility] | | [facility] | [facility] | | | | [facility] - | | | | | | [facility]ATORY | | + + + + + + | Protein, | Negative | Negative | [facility] | | | Urine | | | [facility] | | [facility] | [facility] | | [facility] | | | | | | [facility]ATORY | | + + + + + + | Blood, | Negative | Negative | [facility] | | | Urine | | | [facility] | | [facility] | [facility] | | [facility] | | | | | | [facility]ORY | | + + + + + + | Glucose, | Negative | Negative | [facility] | | | Urine | | | [facility] | | [facility] | [facility] | [facility] | | | | | | [facility]ORY | | + + + + + + | Ketones, | Negative | Negative | [facility] | | | Urine | | | [facility] | | [facility] | | [facility] - | | | | | | [facility]ATORY | | + + + + + + | Bilirubin, | Negative | Negative | [facility] | | | Urine | | | [facility] | | | [facility] | [facility] | | [facility] - | | | | | | [facility]ATORY | | + + + + + + | Nitrite, | Negative | Negative | [facility] | | | Urine | | | [facility] | | | [facility] | [facility] | | [facility] - | | | | | | [facility]ATORY | | + + + + + + | Leukocyte | Moderate (A) | Negative | [facility] | | | Esterase, | | | [facility] | | | Urine | | | [facility] | | | | | | [facility] - | | | | | | LAB[facility]ATORY | | + + + + + + | Urobilinoge | 4.0 mg/dL (A) | 0.2 mg/dL, 1.0 | [facility] | | | n, Urine | | mg/dL, Negative | [facility] | | | | | | [facility] | | | | | | [facility] - | | | | | | [facility]ATORY | | + + + + + + | WBC UA | 25-50 (A) | 0 - 2 /HPF | [facility] | | | | | | [facility] | [facility] | [facility] | [facility] - | | | | | | [facility]ORY | | + + + + + + | WBC CLUMPS | Few (A) | None Seen /HPF | [facility] | | | UA | | | [facility] | | | [facility] | [facility] | | | | [facility] - | | | | | | LAB[facility]ATORY | | + + + + + + | RBC UA | 0-2 | 0 - 2 /HPF | [facility] | | | | | | [facility] | | [facility] | [facility] | | | | | [facility] - | | | | | | LAB[facility]ATORY | | + + + + + + | SQUAMOUS | 25-50 (A) | 0 - 2 /LPF | [facility] | | | EPITHELIAL | | | [facility] | | | UA | | | [facility] | | | | | | [facility] - | | | | | | LAB[facility]ATORY | | + + + + + + | BACTERIA UA | 4+ (A) | Negative /HPF | [facility] | | | | | | [facility] | | | [facility] | [facility] | | | | | | [facility] - | | | | | | LAB[facility]ATORY | | + + + + + + | MUCUS UA | Present (A) | Negative /LPF | [facility] | | | | | | [facility] | | | | | | [facility] | | | | | | [facility] - | | | | | | LAB[facility]ATORY | | + + + + + + | HYALINE | 0-2 | 0 - 2 /LPF | [facility] | | | CASTS UA | | | [facility] | | | | | | [facility] | | | | | | [facility] - | | | | | | LAB[facility]ATORY | | + + + + + + + + | Specimen | + + | Urine | + + + + + + + | Performing | Address | City/State/Zipcode | Phone Number | | Organization | | | | + + + + + | [facility] | [address] | [place] | [phone] | | [facility] | | [address] | | | - LABORATORY | | | | + + + + + Culture, Urine (07/18/2018 10:30 PDT) + + + + + + | Component | Value | Ref Range | Performed | Pathologist | | | | | At | Signature | + + + + + + | Culture | [facility] | | [facility] | | | | | | [facility] | | | | | [facility] | | | | | [facility] - | | | | | | LAB[facility]ATORY | | + + + + + + + + | Specimen | + + | Urine | + + + + +--------+ + | Organism | Antibiotic | Method | Susceptibility | + + +--------+ + | Escherichia coli | Cefazolin | | <=4 ug/mL: | | | | | Sensitive | + + +--------+ + | Escherichia coli | Cefoxitin | | 8 ug/mL: Sensitive | + + +--------+ + | Escherichia coli | Ceftazidime | | <=1 ug/mL: | | | | | Sensitive | + + +--------+ + | Escherichia coli | Ceftriaxone | | <=1 ug/mL: | | | | | Sensitive | + + +--------+ + | Escherichia coli | Ciprofloxacin | | 0.5 ug/mL: | | | | | Sensitive | + + +--------+ + | Escherichia coli | Ertapenem | | <=0.5 ug/mL: | | | | | Sensitive | + + +--------+ + | Escherichia coli | Gentamicin | | <=1 ug/mL: | | | | | Sensitive | + + +--------+ + | Escherichia coli | Meropenem | | <=0.25 ug/mL: | | | | | Sensitive | + + +--------+ + | Escherichia coli | Nitrofurantoin | | <=16 ug/mL: | | | | | Sensitive | + + +--------+ + | Escherichia coli | Tobramycin | | <=1 ug/mL: | | | | | Sensitive | + + +--------+ + | Escherichia coli | Trimethoprim + | | <=20 ug/mL: | | | Sulfamethoxazole | | Sensitive | + + +--------+ + + + + + + | Performing | Address | City/State/Zipcode | Phone Number | | Organization | | | | + + + + + | [facility] | [address] | [place] | [phone] | | [facility] | | [address] | | | - LABORATORY | | | | + + + + + from Last 3 Months Insurance + +--------+ +--------+ +---------+--------+ | Payer | Benefi | Subscriber | Effect | Phone | Address | Type | | | t Plan | ID | g[place]bert | | | | | | / | | Dates | | | | | | Group | | | | | | + +--------+ +--------+ +---------+--------+ | MEDICARE | MEDICA | [id number] | 11/27/19 | [phone] | | Medica | | | RE | | 05-Pre | 5 | | re | | | PART A | | sent | | | | | | AND B | | | | | | + +--------+ +--------+ +---------+--------+ | [facility] | [employer] | [id number] | 10/29/19 | | | Indemn | | SERVICE | YELLOW | | 16-Pre | | | ity | | | HAWK | | sent | | | | + +--------+ +--------+ +---------+--------+ | [place]ICAID [place] | MEDICA | [id number] | | [phone] | | Medica | | | ID [place] | | 018-Pr | 2 | | id | | | PLUS | | esent | | | | + +--------+ +--------+ +---------+--------+ + +--------+ +--------+ + + | Guarantor Name | Accoun | Relation to | Date | Phone | Billing Address | | | t Type | Patient | of | | | | | | | | | | + +--------+ +--------+ + + | Laura | Person | Self [birth year] | [address] | | Teja Jamesbhupendra Flores | [place] | | 1946 | [phone] | [address] | | | ramez | | | 2 (Home) | [phone] | | | | | | [phone] | | | | | | | 9 (Work) | | + +--------+ +--------+ + + Advance Directives Patient has advance care planning documents, and code status on file. For more information, please contact:[facility] [place] [id number] + + + + + | Code Status | Date | Date | Comments | | | Activated | Inactivated | | + + + + + | Full Code | 09/19/2017 | 09/19/2017 | | | | 10:57 | 14:14 | | + + + + + + + + +---+ | | | | | + + + +---+ | Full Code | 11/03/2015 | 11/03/2015 | | | | 13:54 | 17:39 | | + + + +---+
--- OUTSIDE RECORDS SUMMARY | ~2018-07-28 | XMS | Encounter Summary ---
Demographics + + + | Address | [address] | | | [place] [address] | + + + | Home Phone | | + + + | Preferred Language | Unknown | + + + | Marital Status | | + + + | Yazdanism Affiliation | 1041 | + + + | Race | Unknown | + + + | Ethnic Group | Unknown | + + + Author + + + | Author | [facility] | | | and [place] | + + + | Organization | [facility] | | | [...] Team Providers + +------+ + | Care Test Fixture Assembler Name | Role | Phone | + [...] + | 06/30/ | Home Care | [facility] | Lisa Kearns RN | SN REPEAT VISIT | | 2019 | Visit | [place] [address] | | | | | | [place] | | | | | | [address] | | | | | | [phone] | | | +--------+ + + + [...] + + + | Blood Pressure | 98/42 | 06/30/2018922 PDT | + + + + | Pulse | 64 | 06/30/2018922 PDT | + + + + | Temperature | 36 C (96.8 F) | 06/30/2018922 PDT | + + + + | Respiratory Rate | 16 | 06/30/2018922 PDT | + + + + | Oxygen Saturation | 94% | 06/30/2018922 PDT | + + + + | [...] | | 2019 | Visit | | ASPNET DEVELOPER [address] | | | | | | [place] | | | | | | [address] | | +--------+ + + + + | 08/01/ | Home Care | Home Health Services | | | | 2018 | Visit | | | | +--------+ + + + + | 08/01/ | Home Care | Home Health Services | Won Zafar, | | | 2018 | Visit | | ASPNET DEVELOPER [address] | | | | | | [place] | | | | | | [address] | | +--------+ + + + + | 08/03/ | Home Care | Home Health Services | Won Zafar, | | | 2018 | Visit | | ASPNET DEVELOPER [address] | | | | | | [place] | | | | | | [address] | | +--------+ + + + + [...] | | 2018 | Visit | | ASPNET DEVELOPER [address] | | | | | | [place] | | | | | | [address] | | +--------+ + + + + | 08/10/ | Home Care | Home Health Services | Billy Jett, | | | 2018 | Visit | | PT [address] | | | | | | [place] | | | | | | [address] | | | | | | | | +--------+ + + + + | 08/11/ | Appointment | Home Health Services | Lisa Kearns RN | | | 2019 | | | | | +--------+ + + + + documented as of this encounter Visit Diagnoses Not on filedocumented in this encounter"
--- OUTSIDE RECORDS SUMMARY | ~2018-07-28 | XMS | Encounter Summary ---
Demographics + + + | Address | [address] | | | [place] [address] | + + + | Home Phone | | + + + | Preferred Language | Unknown | + + + | Marital Status | | + + + | Sikhism Affiliation | 1041 | + + + | Race | Unknown | + + + | Ethnic Group | Unknown | + + + Author + + + | Author | [facility] | | | and [place] | + + + | Organization | [facility] | | | and [...] Team Providers + +------+ + | Care Liner Checker Name | Role | Phone | + +------+ + | Juan Mcclain DO | PCP | | + +------+ + Reason for Visit Home Health Care (Routine) +--------+--------+ + + + + | Status | Reason | Specialty | Diagnoses / | Referred By | Referred To | | | | | Procedures | Contact | Contact | +--------+--------+ + + + + | Closed | | Home Health | Diagnoses | Quaempts, | Prov Hh | | | | Services | Pressure | Juan M, DO | [place] | | | | | ulcer of | [address] | [address] | | | | | sacral | [address] | [address] [place] | | | | | region, | WAY | [place], [place] | | | | | unspecified | [place], | [address] | | | | | stage | [place] [address] | Phone: | | | | | | Phone: | [phone] | | | | | | [phone] | Fax: | | | | | | Fax: | [phone] | | | | | | [phone] | | +--------+--------+ + + + + Encounter Details +--------+ + + + + | Date | Type | Department | Care Team | Description | +--------+ + + + + | 06/09/ | Home Care | [facility] | Maria Del Carmen Erwin, | CASE COMMUNICATION | | 2019 | Visit | [place] [address] | RN | | | | | [place] | | | | | | [address] | | | | | | [phone] | | | +--------+ + + + [...] | | 2018 | Visit | | USED BUILDING MATERIALS YARD WORKER [address] | | | | | | [facility] [place] | | | | | | [address] | | +--------+ + + + + | 08/01/ | Home Care | Home Health Services | | | | 2018 | Visit | | | | +--------+ + + + + | 08/01/ | Home Care | Home Health Services | Won Zafar, | | | 2018 | Visit | | USED BUILDING MATERIALS YARD WORKER [address] | | | | | | [place] | | | | | | [address] | | +--------+ + + + + | 08/03/ | Home Care | Home Health Services | Won Zafar, | | | 2018 | Visit | | USED BUILDING MATERIALS YARD WORKER [address] | | | | | | [place] | | | | | | [address] | | +--------+ + + + + [...] | | 2018 | Visit | | USED BUILDING MATERIALS YARD WORKER [address] | | | | | | [place] | | | | | | [address] | | +--------+ + + + + | 08/10/ | Home Care | Home Health Services | Billy Jett, | | | 2018 | Visit | | PT [address] | | | | | | [place] | | | | | | [address] | | | | | | | | +--------+ + + + + | 08/11/ | Appointment | Home Health Services | Lisa Kearns RN | | | 2018 | | | | | +--------+ + + + + documented as of this encounter Visit Diagnoses Not on filedocumented in this encounter"
--- OUTSIDE RECORDS SUMMARY | ~2018-07-28 | XMS | Encounter Summary ---
Demographics + + + | Address | [address] | | | [place] [address] | + + + | Home Phone | | + + + | Preferred Language | Unknown | + + + | Marital Status | | + + + | Mormon Affiliation | 1041 | + + + | Race | Unknown | + + + | Ethnic Group | Unknown | + + + Author + + + | Author | [facility] | | | and [place] | + + + | Organization | [facility] | | | [...] Team Providers + +------+ + | Care Cataloging Assistant Name | Role | Phone | [...] [place] | | | | | | [address] | | | | | | [phone] | | | +--------+ + + + [...] | | 2018 | Visit | | CLIPPER AND TURNER [address] | | | | | | [place] | | | | | | [address] | | +--------+ + + + + | 08/03/ | Home Care | Home Health Services | Won Zafar, | | | 2018 | Visit | | CLIPPER AND TURNER [address] | | | | | | [place] | | | | | | [address] | | +--------+ + + + + [...] | | 2018 | Visit | | CLIPPER AND TURNER [address] | | | | | | [place] | | | | | | [address] | | +--------+ + + + + | 08/10/ | Home Care | Home Health Services | Billy Jett, | | | 2018 | Visit | | PT [address] | | | | | | [place] | | | | | | [address] | | | | | | | | +--------+ + + + + | 08/11/ | Appointment | Home Health Services | Lisa Kearns RN | | | 2018 | | | | | +--------+ + + + + documented as of this encounter Visit Diagnoses Not on filedocumented in this encounter"
--- OUTSIDE RECORDS SUMMARY | ~2018-07-28 | XMS | Encounter Summary ---
Demographics + + + | Address | [address] | | | [place] [address] | + + + | Home Phone | | + + + | Preferred Language | Unknown | + + + | Marital Status | | + + + | Holiness Affiliation | 1041 | + + + | Race | Unknown | + + + | Ethnic Group | Unknown | + + + Author + + + | Author | [facility] | | | and [place] | + + + | Organization | [facility] | | | [...] Team Providers + +------+ + | Care Fudge Candy Maker Name | Role | Phone | + [...] + | 07/12/ | Home Care | [facility] [place] | Billy Jett, | PT REPEAT VISIT | | 2019 | Visit | [place] [address] | PT [address] | | | | | ST [place] | [place] | | | | | [address] | [address] | | | | | [phone] | | | +--------+ + + + [...] + +---------+ + | Blood Pressure | 128/66 | 07/12/2018 1330 PDT | + +---------+ + | Pulse | 70 | 07/12/2018 1330 PDT | + +---------+ + | Temperature [...] | | 2018 | Visit | | SAMPLE GRADER [address] | | | | | | [place] | | | | | | [address] | | +--------+ + + + + | 08/03/ | Home Care | Home Health Services | Won Zafar, | | | 2018 | Visit | | SAMPLE GRADER [address] | | | | | | [place] | | | | | | [address] | | +--------+ + + + + [...] | | 2018 | Visit | | SAMPLE GRADER [address] | | | | | | [place] | | | | | | [address] | | +--------+ + + + + | 08/10/ | Home Care | Home Health Services | Billy Jett, | | | 2018 | Visit | | PT [address] | | | | | | [place] | | | | | | [address] | | | | | | | | +--------+ + + + + | 08/11/ | Appointment | Home Health Services | Lisa Kearns RN | | | 2018 | | | | | +--------+ + + + + documented as of this encounter Visit Diagnoses Not on filedocumented in this encounter"
--- OUTSIDE RECORDS SUMMARY | ~2018-07-28 | XMS | Encounter Summary ---
Demographics + + + | Address | [address] | | | [place] [address] | + + + | Home Phone | | + + + | Preferred Language | Unknown | + + + | Marital Status | | + + + | Sabianist Affiliation | 1041 | + + + | Race | Unknown | + + + | Ethnic Group | Unknown | + + + Author + + + | Author | [facility] | | | and [place] | + + + | Organization | [facility] | | [...] Team Providers + +------+ + | Care Pie Crimping Machine Operator Name | Role | Phone | + +------+ + | Juan Mcclain DO | PCP | | + +------+ + Encounter Details +--------+ + + + + | Date | Type | Department | Care Team | Description | +--------+ + + + + | 06/12/ | Home Care | [facility] [place] | Itzel Stafford, | CASE COMMUNICATION | | 2019 | Visit | [place] [address] | RN | | | | | [place] | | | | | | [address] | | | | | | [phone] | | | +--------+ + + + [...] | | 2018 | Visit | | INSPECTOR MACHINE CUT GLASS [address] | | | | | | [place] | | | | | | [address] | | +--------+ + + + + | 08/03/ | Home Care | Home Health Services | Won Zafar, | | | 2018 | Visit | | INSPECTOR MACHINE CUT GLASS [address] | | | | | | [place] | | | | | | [address] | | +--------+ + + + + [...] | | 2018 | Visit | | INSPECTOR MACHINE CUT GLASS [address] | | | | | | [place] | | | | | | [address] | | +--------+ + + + + | 08/10/ | Home Care | Home Health Services | Billy Jett, | | | 2018 | Visit | | [facility] [address] [facility] | | | | | | [place] | | | | | | [address] | | | | | | | | +--------+ + + + + | 08/11/ | Appointment | Home Health Services | Lisa Kearns RN | | | 2018 | | | | | +--------+ + + + + documented as of this encounter Visit Diagnoses Not on filedocumented in this encounter"
--- OUTSIDE RECORDS SUMMARY | ~2018-07-28 | XMS | Encounter Summary ---
Demographics + + + | Address | [address] | | | [place] [address] | + + + | Home Phone | | + + + | Preferred Language | Unknown | + + + | Marital Status | | + + + | Confucianist Affiliation | 1041 | + + + | Race | Unknown | + + + | Ethnic Group | Unknown | + + + Author + + + | Author | [facility] | | | and [place] | + + + | Organization | [facility] | | | [...] Team Providers + +------+ + | Care Dance Artist Name | Role | Phone | + [...] Visit | [place] [address] | EXCELLENCE CONSULTANT [address] | | | | | [place], [place] | [place] | | | | | [address] | [address] | | | | | [phone] | | | +--------+ + + + [...] | | 2018 | Visit | | EXCELLENCE CONSULTANT [address] | | | | | | [place] | | | | | | [address] | | +--------+ + + + + | 08/03/ | Home Care | Home Health Services | Won Zafar, | | | 2018 | Visit | | EXCELLENCE CONSULTANT [address] | | | | | | [place] | | | | | | [address] | | +--------+ + + + + [...] | | 2018 | Visit | | EXCELLENCE CONSULTANT [address] | | | | | | [place] | | | | | | [address] | | +--------+ + + + + | 08/10/ | Home Care | Home Health Services | Billy Jett, | | | 2019 | Visit | | PT [address] | | | | | | [place] | | | | | | [address] | | | | | | | | +--------+ + + + + | 08/11/ | Appointment | Home Health Services | Lisa Kearns RN | | | 2018 | | | | | +--------+ + + + + documented as of this encounter Visit Diagnoses Not on filedocumented in this encounter"
--- OUTSIDE RECORDS SUMMARY | ~2018-07-28 | XMS | Encounter Summary ---
Demographics + + + | Address | [address] | | | [place] [address] | + + + | Home Phone | | + + + | Preferred Language | Unknown | + + + | Marital Status | | + + + | Holiness Affiliation | 1041 | + + + | Race | Unknown | + + + | Ethnic Group | Unknown | + + + Author + + + | Author | [facility] | | | and [place] | + + + | Organization | [facility] | | | and [...] Team Providers + +------+ + | Care Radio Station Operator Name | Role | Phone | [...] | 07/21/ | Home Care | [facility] | Billy Jett, | PT REASSESSMENT | | 2019 | Visit | [place] [address] | PT [address] | ([place] 30 DAY) | | | | ST [place] | [place] | | | | | [address] | [address] | | | | | [phone] | | | +--------+ + + + [...] + +---------+ + | Blood Pressure | 132/62 | 07/21/2018 1235 PDT | + +---------+ + | Pulse | 76 | 07/21/2018 1235 PDT | + +---------+ + | Temperature [...] | | 2018 | Visit | | ASSET MANAGEMENT COORDINATOR [address] | | | | | | [place] | | | | | | [address] | | +--------+ + + + + | 08/03/ | Home Care | Home Health Services | Won Zafar, | | | 2018 | Visit | | ASSET MANAGEMENT COORDINATOR [address] | | | | | | [place] | | | | | | [address] | | +--------+ + + + + [...] | | 2018 | Visit | | ASSET MANAGEMENT COORDINATOR [address] | | | | | | [place] | | | | | | [address] | | +--------+ + + + + | 08/10/ | Home Care | Home Health Services | Billy Jett, | | | 2018 | Visit | | PT [address] | | | | | | [place] | | | | | | [address] | | | | | | | | +--------+ + + + + | 08/11/ | Appointment | Home Health Services | Lisa Kearns RN | | | 2019 | | | | | +--------+ + + + + documented as of this encounter Visit Diagnoses Not on filedocumented in this encounter"
--- OUTSIDE RECORDS SUMMARY | ~2018-07-28 | XMS | Encounter Summary ---
Demographics + + + | Address | [address] | | | [place] [address] | + + + | Home Phone | | + + + | Preferred Language | Unknown | + + + | Marital Status | | + + + | Sikhism Affiliation | 1041 | + + + | Race | Unknown | + + + | Ethnic Group | Unknown | + + + Author + + + | Author | [facility] | | | and [place] | + + + | Organization | [facility] | | | [...] Team Providers + +------+ + | Care Automotive Fleet Supervisor Name | Role | Phone | + [...] + | 06/16/ | Home Care | PROV JULISSA [place] | Aliya Jerome, | TELEPHONE ENCOUNTER | | 2018 | Visit | [place] [address] | [place] | | | | | [place] | | | | | | [address] | | | | | | [phone] | | | +--------+ + + + [...] | | 2018 | Visit | | OCCUPATIONAL THERAPY PROFESSOR [address] | | | | | | [place] | | | | | | [address] | | +--------+ + + + + | 08/01/ | Home Care | Home Health Services | | | | 2018 | Visit | | | | +--------+ + + + + | 08/01/ | Home Care | Home Health Services | Won Zafar, | | | 2018 | Visit | | OCCUPATIONAL THERAPY PROFESSOR [address] | | | | | | [place] | | | | | | [address] | | +--------+ + + + + | 08/03/ | Home Care | Home Health Services | Won Zafar, | | | 2018 | Visit | | OCCUPATIONAL THERAPY PROFESSOR [address] | | | | | | [place] | | | | | | [address] | | +--------+ + + + + [...] Care | Home Health Services | Won Zfaar, | | | 2018 | Visit | | OCCUPATIONAL THERAPY PROFESSOR [address] | | | | | | [place] | | | | | | [address] | | +--------+ + + + + | 08/10/ | Home Care | Home Health Services | Billy Jett, | | | 2019 | Visit | | PT [address] | | | | | | [place] | | | | | | [address] | | | | | | | | +--------+ + + + + | 08/11/ | Appointment | Home Health Services | Lisa Kearns RN | | | 2018 | | | | | +--------+ + + + + documented as of this encounter Visit Diagnoses Not on filedocumented in this encounter"
--- OUTSIDE RECORDS SUMMARY | ~2018-07-28 | XMS | Encounter Summary ---
Demographics + + + | Address | [address] | | | [place] [address] | + + + | Home Phone [...] Team Providers + +------+ + | Care Maternal Fetal Physician Name | Role | Phone | + [...] JULISSA [place] | Lisa Kearns RN | CASE COMMUNICATION | | 2018 | Visit | [place] [address] | | | | | | [place] | | | | | | [address] | | | | | | [phone] | | | +--------+ + + + [...] | | 2018 | Visit | | PRECISION LENS POLISHER [address] | | | | | | [place] | | | | | | [address] | | +--------+ + + + + | 08/01/ | Home Care | Home Health Services | | | | 2018 | Visit | | | | +--------+ + + + + | 08/01/ | Home Care | Home Health Services | Won Zafar, | | | 2018 | Visit | | PRECISION LENS POLISHER [address] | | | | | | [place] | | | | | | [address] | | +--------+ + + + + | 08/03/ | Home Care | Home Health Services | Won Zafar, | | | 2018 | Visit | | PRECISION LENS POLISHER [address] | | | | | | [place] | | | | | | [address] | | +--------+ + + + + | 08/04/ | Home Care | Home Health Services | Lisa Kaerns RN | | | 2018 | Visit [...] | | 2018 | Visit | | PRECISION LENS POLISHER [address] | | | | | | [place] | | | | | | [address] | | +--------+ + + + + | 08/10/ | Home Care | Home Health Services | Billy Jett, | | | 2019 | Visit | | PT [address] | | | | | | [place] | | | | | | [address] | | | | | | | | +--------+ + + + + | 08/11/ | Appointment | Home Health Services | Lisa Kearns RN | | | 2018 | | | | | +--------+ + + + + documented as of this encounter Visit Diagnoses Not on filedocumented in this encounter"
--- OUTSIDE RECORDS SUMMARY | ~2018-07-28 | XMS | Encounter Summary ---
Demographics + + + | Address | [address] | | | [place] [address] | + + + | Home Phone | | + + + | Preferred Language | Unknown | + + + | Marital Status | | + + + | Mandaen Affiliation | 1041 | + + + [...] Team Providers + +------+ + | Care Robotics Technician Name | Role | Phone | + [...] Visit | [place] [address] | CUSTOMS AND BORDER PROTECTION INSPECTOR [address] | | | | | [place], [place] | [place] | | | | | [address] | [address] | | | | | [phone] | | | +--------+ + + + [...] | | 2018 | Visit | | CUSTOMS AND BORDER PROTECTION INSPECTOR [address] | | | | | | [place] | | | | | | [address] | | +--------+ + + + + | 08/01/ | Home Care | Home Health Services | | | | 2018 | Visit | | | | +--------+ + + + + | 08/01/ | Home Care | Home Health Services | Won Zafar, | | | 2018 | Visit | | CUSTOMS AND BORDER PROTECTION INSPECTOR [address] | | | | | | [place] | | | | | | [address] | | +--------+ + + + + | 08/03/ | Home Care | Home Health Services | Won Zafar, | | | 2018 | Visit | | CUSTOMS AND BORDER PROTECTION INSPECTOR [address] | | | | | | [place] | | | | | | [address] | | +--------+ + + + + | 08/04/ | Home Care | Home Health Services | Lias Kearns RN | | | 2018 | [...] | | 2018 | Visit | | CUSTOMS AND BORDER PROTECTION INSPECTOR [address] | | | | | | [place] | | | | | | [address] | | +--------+ + + + + | 08/10/ | Home Care | Home Health Services | Billy Jett, | | | 2018 | Visit | | PT [address] | | | | | | [place] | | | | | | [address] | | | | | | | | +--------+ + + + + | 08/11/ | Appointment | Home Health Services | Lisa Kearns RN | | | 2018 | | | | | +--------+ + + + + documented as of this encounter Visit Diagnoses Not on filedocumented in this encounter"
--- OUTSIDE RECORDS SUMMARY | ~2018-07-28 | XMS | Encounter Summary ---
Demographics + + + | Address | [address] | | | [place] [address] | + + + | Home Phone | | + + + | Preferred Language | Unknown | + + + | Marital Status | | + + + | Islam Affiliation | 1041 | + + + | Race | Unknown | + + + | Ethnic Group | Unknown | + + + Author + + + | Author | [facility] | | | and [place] | + + + | Organization | [facility] | | | [...] Team Providers + +------+ + | Care Trapeze Artist Name | Role | Phone | + +------+ + | No, Physician | PCP | Unavailable | + +------+ + Encounter Details +--------+ + + + + | Date | Type | Department | Care Team | Description | +--------+ + + + + | 07/18/ | Lab | [facility] | Juan Mcclain, | Urinary tract | | 2019 | Requisition | [facility] [place] [place] [address] | infection | | | | [address] [place] | [address] | | | | | [place], [place] | [place] [address] | | | | | [address] | [phone] | | | | | [phone] | | | +--------+ + + + [...] | | 2018 | Visit | | DOLPHIN RESEARCHER [address] | | | | | | [place], [place] | | | | | | [address] | | +--------+ + + + + | 08/01/ | Home Care | Home Health Services | | | | 2019 | Visit | | | | +--------+ + + + + | 08/01/ | Home Care | Home Health Services | Won Zafar, | | | 2018 | Visit | | DOLPHIN RESEARCHER [address] | | | | | | [place] | | | | | | [address] | | +--------+ + + + + | 08/03/ | Home Care | Home Health Services | Won Zafar, | | | 2019 | Visit | | DOLPHIN RESEARCHER [address] | | | | | | [place] | | | | | | [address] | | +--------+ + + + + [...] | | 2018 | Visit | | DOLPHIN RESEARCHER [address] | | | | | | [place] | | | | | | [address] | | +--------+ + + + + | 08/10/ | Home Care | Home Health Services | Billy Jett, | | | 2018 | Visit | | PT [address] | | | | | | [place] | | | | | | [address] | | | | | | | | +--------+ + + + + | 08/11/ | Appointment | Home Health Services | Lisa Kearns RN | | | 2018 | | | | | +--------+ + + + + documented as of this encounter Procedures + +--------+ + + + | [...] section. | + +--------+ + + + documented in this encounter Results Culture, Urine (07/18/2018 10:30 PDT) + + [...] + + | [facility] | [address] | [place] | [phone] | | [facility] | | [address] | | | - LABORATORY | | | | + + + + + Urinalysis with Microscopic with Culture if Indicated [...] - 1.030 | [facility] | | | [facility] | | | [facility] | | [...] | | | Urine | | | [facility] | | | | | | MEDICAL [...] | | | | | | [facility] | | | | | | MEDICAL [...] + + | [facility] | [address] | [place], [place] | [phone] | | [facility] | | [address] | | | - LABORATORY | | | | + + + + + documented in this encounter Visit Diagnoses + + | Diagnosis | + + | Urinary tract infection Urinary tract infection, site not specified | + + documented in this encounter"
--- OUTSIDE RECORDS SUMMARY | ~2018-07-28 | XMS | Encounter Summary ---
Demographics + + + | Address | [address] | | | [place] [address] | + + + | Home Phone | | + + + | Preferred Language | Unknown | + + + | Marital Status | | + + + | Quaker Affiliation | 1041 | + + + | Race | Unknown | + + + | Ethnic Group | Unknown | + + + Author + + + | Author | [facility] | | | and [place] | + + + | Organization | [facility] | | | [...] Team Providers + +------+ + | Care Gallery Or Museum Technician Name | Role | Phone | [...] | 07/11/ | Home Care | [facility] | Lisa Kearns RN | SN REPEAT VISIT | | 2019 | Visit | [place] [address] | | | | | | [place] | | | | | | [address] | | | | | | [phone] | | | +--------+ + + + [...] + + + | Blood Pressure | 100/52 | 07/11/20181402 PDT | + + + + | Pulse | 64 | 07/11/20181402 PDT | + + + + | Temperature | 36 C (96.8 F) | 07/11/20181402 PDT | + + + + | Respiratory Rate | 16 | 07/11/20181402 PDT | + + + + | Oxygen Saturation | 97% | 07/11/20181402 PDT | + + + + | [...] | | 2019 | Visit | | BUDGET DIRECTOR [address] | | | | | | [address] [place] | | | | | | [address] | | +--------+ + + + + | 08/01/ | Home Care | Home Health Services | | | | 2018 | Visit | | | | +--------+ + + + + | 08/01/ | Home Care | Home Health Services | Won Zafar, | | | 2018 | Visit | | BUDGET DIRECTOR [address] | | | | | | [place] | | | | | | [address] | | +--------+ + + + + | 08/03/ | Home Care | Home Health Services | Won Zafar, | | | 2018 | Visit | | BUDGET DIRECTOR [address] | | | | | | [place] | | | | | | [address] | | +--------+ + + + + [...] | | 2018 | Visit | | BUDGET DIRECTOR [address] | | | | | | [address] [place] | | | | | | [address] | | +--------+ + + + + | 08/10/ | Home Care | Home Health Services | Billy Jett, | | | 2018 | Visit | | PT [address] | | | | | | [place] | | | | | | [address] | | | | | | | | +--------+ + + + + | 08/11/ | Appointment | Home Health Services | Lisa Kearns RN | | | 2019 | | | | | +--------+ + + + + documented as of this encounter Visit Diagnoses Not on filedocumented in this encounter"
--- OUTSIDE RECORDS SUMMARY | ~2018-07-28 | XMS | Encounter Summary ---
Demographics + + + | Address | [address] | | | [place] [address] | + + + | Home Phone | | + + + | Preferred Language | Unknown | + + + | Marital Status | | + + + | Alevism Affiliation | 1041 | + + + | Race | Unknown | + + + | Ethnic Group | Unknown | + + + Author + + + | Author | [facility] | | | and [place] | + + + | Organization | [facility] | | | and [...] Team Providers + +------+ + | Care Digital Designer Name | Role | Phone | + [...] [place] | | | | | [address] | [address] | | | | | [phone] | | | +--------+ + + + [...] | | 2018 | Visit | | READINESS PARAPROFESSIONAL [address] | | | | | | [place] | | | | | | [address] | | +--------+ + + + + | 08/01/ | Home Care | Home Health Services | | | | 2018 | Visit | | | | +--------+ + + + + | 08/01/ | Home Care | Home Health Services | Won Zafar, | | | 2018 | Visit | | READINESS PARAPROFESSIONAL [address] | | | | | | [place] | | | | | | [address] | | +--------+ + + + + | 08/03/ | Home Care | Home Health Services | Won Zafar, | | | 2018 | Visit | | READINESS PARAPROFESSIONAL [address] | | | | | | [place] | | | | | | [address] | | +--------+ + + + + [...] | | 2018 | Visit | | READINESS PARAPROFESSIONAL [address] | | | | | | [place] | | | | | | [address] | | +--------+ + + + + | 08/10/ | Home Care | Home Health Services | Billy Jett, | | | 2018 | Visit | | PT [address] | | | | | | [place] | | | | | | [address] | | | | | | | | +--------+ + + + + | 08/11/ | Appointment | Home Health Services | Lisa Kearns RN | | | 2018 | | | | | +--------+ + + + + documented as of this encounter Visit Diagnoses Not on filedocumented in this encounter"
--- OUTSIDE RECORDS SUMMARY | ~2018-07-28 | XMS | Encounter Summary ---
Demographics + + + | Address | [address] | | | [place] [address] | + + + | Home Phone | | + + + | Preferred Language | Unknown | + + + | Marital Status | | + + + | Catholic Affiliation | 1041 | + + [...] Team Providers + +------+ + | Care Electrical Engineering Designer Name | Role | Phone | [...] + | 06/27/ | Home Care | [facility] [place] | Lisa Kearns RN | SN REPEAT VISIT | | 2019 | Visit | [place] [address] | | | | | | [place] | | | | | | [address] | | | | | | [phone] | | | +--------+ + + + [...] + + + | Blood Pressure | 106/44 | 06/27/2018940 PDT | + + + + | Pulse | 52 | 06/27/2018940 PDT | + + + + | Temperature | 36.3 C (97.3 F) | 06/27/2018940 PDT | + + + + | Respiratory Rate | 18 | 06/27/2018940 PDT | + + + + | Oxygen Saturation | 93% | 06/27/2018940 PDT | + + + + | [...] | | 2018 | Visit | | FRANKFURTER INSPECTOR [address] | | | | | | [place] | | | | | | [address] | | +--------+ + + + + | 08/03/ | Home Care | Home Health Services | Won Zafar, | | | 2018 | Visit | | FRANKFURTER INSPECTOR [address] | | | | | | [place] | | | | | | [address] | | +--------+ + + + + [...] | | 2018 | Visit | | FRANKFURTER INSPECTOR [address] | | | | | | [place] | | | | | | [address] | | +--------+ + + + + | 08/10/ | Home Care | Home Health Services | Billy Jett, | | | 2018 | Visit | | PT [address] | | | | | | [place] | | | | | | [address] | | | | | | | | +--------+ + + + + | 08/11/ | Appointment | Home Health Services | Lisa Kearns RN | | | 2018 | | | | | +--------+ + + + + documented as of this encounter Visit Diagnoses Not on filedocumented in this encounter"
--- OUTSIDE RECORDS SUMMARY | ~2018-07-28 | XMS | Encounter Summary ---
Demographics + + + | Address | [address] | | | [place] [address] | + + + | Home Phone | | + + + | Preferred Language | Unknown | + + + | Marital Status | | + + + | Mormonism Affiliation | 1041 | + + + | Race | Unknown | + + + | Ethnic Group | Unknown | + + + Author + + + | Author | [facility] | | | and [place] | + + + | Organization | [facility] | | [...] Team Providers + +------+ + | Care Movie Star Name | Role | Phone | + [...] [place] | | | | | | [address] | | | | | | [phone] | | | +--------+ + + + [...] | | 2019 | Visit | | WIRELESS STORE MANAGER [address] | | | | | | [place] | | | | | | [address] | | +--------+ + + + + | 08/01/ | Home Care | Home Health Services | | | | 2018 | Visit | | | | +--------+ + + + + | 08/01/ | Home Care | Home Health Services | Won Zafar, | | | 2018 | Visit | | WIRELESS STORE MANAGER [address] | | | | | | [place] | | | | | | [address] | | +--------+ + + + + | 08/03/ | Home Care | Home Health Services | Won Zafar, | | | 2018 | Visit | | WIRELESS STORE MANAGER [address] | | | | | | [place] | | | | | | [address] | | +--------+ + + + + [...] | | 2018 | Visit | | WIRELESS STORE MANAGER [address] | | | | | | [place] | | | | | | [address] | | +--------+ + + + + | 08/10/ | Home Care | Home Health Services | Billy Jett, | | | 2019 | Visit | | PT [address] | | | | | | [place] | | | | | | [address] | | | | | | | | +--------+ + + + + | 08/11/ | Appointment | Home Health Services | Lisa Kearns RN | | | 2019 | | | | | +--------+ + + + + documented as of this encounter Visit Diagnoses Not on filedocumented in this encounter"
--- OUTSIDE RECORDS SUMMARY | ~2018-07-28 | XMS | Encounter Summary ---
Demographics + + + | Address | [address] | | | [place] [address] | + + + | Home Phone | | + + + | Preferred Language | Unknown | + + + | Marital Status | | + + + | Quaker Affiliation | 1041 | + + + | Race | Unknown | + + + | Ethnic Group | Unknown | + + + Author + + + | Author | [facility] | | | and [place] | + + + | Organization | [facility] | | | and [...] Providers + +------+ + | Care Radio Presenter Name | Role | Phone | + [...] | Pressure | Juan M, DO | Lea | | | | | ulcer of | [address] | [address] | | | | | sacral | [address] | [address] [place] | | | | | region, | WAY | [place], [place] | | | | | unspecified | [place], | [address] | | | | | stage | [place] [address] | Phone: | | | | | | Phone: | [phone] | | | | | | [phone] | Fax: | | | | | | Fax: | [phone] | | | | | | [phone] | | +--------+--------+ + + + + [...] | | | | ST [place] | | | | | | [address] | | | | | | [phone] | | | +--------+ + + + [...] | | 2018 | Visit | | UNDERTAKER ASSISTANT [address] | | | | | | [facility] [place] | | | | | | [address] | | +--------+ + + + + | 08/01/ | Home Care | Home Health Services | | | | 2018 | Visit | | | | +--------+ + + + + | 08/01/ | Home Care | Home Health Services | Won Zafar, | | | 2018 | Visit | | UNDERTAKER ASSISTANT [address] | | | | | | [place] | | | | | | [address] | | +--------+ + + + + | 08/03/ | Home Care | Home Health Services | Won Zafar, | | | 2018 | Visit | | UNDERTAKER ASSISTANT [address] | | | | | | [place] | | | | | | [address] | | +--------+ + + + + [...] | | 2018 | Visit | | UNDERTAKER ASSISTANT [address] | | | | | | [place] | | | | | | [address] | | +--------+ + + + + | 08/10/ | Home Care | Home Health Services | Billy Jett, | | | 2018 | Visit | | PT [address] | | | | | | [place] | | | | | | [address] | | | | | | | | +--------+ + + + + | 08/11/ | Appointment | Home Health Services | Lisa Kearns RN | | | 2018 | | | | | +--------+ + + + + documented as of this encounter Visit Diagnoses Not on filedocumented in this encounter"
--- OUTSIDE RECORDS SUMMARY | ~2018-07-28 | XMS | Encounter Summary ---
Demographics + + + | Address | [address] | | | [place] [address] | + + + | Home Phone | | + + + | Preferred Language | Unknown | + + + | Marital Status | | + + + | Mu-Ism Affiliation | 1041 | + + + | Race | Unknown | + + + | Ethnic Group | Unknown | + + + Author + + + | Author | [facility] | | | and [place] | + + + | Organization | [facility] | | [...] Team Providers + +------+ + | Care Needle Bar Molder Name | Role | Phone | + [...] | 07/04/ | Home Care | [facility] [place] | Won Zafar, | PT REPEAT VISIT | | 2019 | Visit | [place] [address] | BOILER PLANT OPERATOR [address] | | | | | [place] | [place], [place] | | | | | [address] | [address] | | | | | [phone] | | | +--------+ + + + [...] | | 2018 | Visit | | BOILER PLANT OPERATOR [address] | | | | | | [place] | | | | | | [address] | | +--------+ + + + + | 08/01/ | Home Care | Home Health Services | | | | 2018 | Visit | | | | +--------+ + + + + | 08/01/ | Home Care | Home Health Services | Won Zafar, | | | 2018 | Visit | | BOILER PLANT OPERATOR [address] | | | | | | [place] | | | | | | [address] | | +--------+ + + + + | 08/03/ | Home Care | Home Health Services | Won Zafar, | | | 2018 | Visit | | BOILER PLANT OPERATOR [address] | | | | | | [place] | | | | | | [address] | | +--------+ + + + + [...] | | 2018 | Visit | | BOILER PLANT OPERATOR [address] | | | | | | [place] | | | | | | [address] | | +--------+ + + + + | 08/10/ | Home Care | Home Health Services | Billy Jett, | | | 2018 | Visit | | PT [address] | | | | | | [place] | | | | | | [address] | | | | | | | | +--------+ + + + + | 08/11/ | Appointment | Home Health Services | Lisa Kearns RN | | | 2018 | | | | | +--------+ + + + + documented as of this encounter Visit Diagnoses Not on filedocumented in this encounter"
--- OUTSIDE RECORDS SUMMARY | ~2018-07-28 | XMS | Encounter Summary ---
Demographics + + + | Address | [address] | | | [place] [address] | + + + | Home Phone | | + + + | Preferred Language | Unknown | + + + | Marital Status | | + + + | Yarsanism Affiliation | 1041 | + + + | Race | Unknown | + + + | Ethnic Group | Unknown | + + + Author + + + | Author | [facility] | | | and [place] | + + + | Organization | [facility] | | | [...] Team Providers + +------+ + | Care Flux Core Welder Name | Role | Phone | + [...] Visit | [place] [address] | OXYGEN EQUIPMENT PREPARER [address] | | | | | [place] | [place] | | | | | [address] | [address] | | | | | [phone] | | | +--------+ + + + [...] | | 2018 | Visit | | OXYGEN EQUIPMENT PREPARER [address] | | | | | | [place] | | | | | | [address] | | +--------+ + + + + | 08/01/ | Home Care | Home Health Services | | | | 2018 | Visit | | | | +--------+ + + + + | 08/01/ | Home Care | Home Health Services | Won Zafar, | | | 2018 | Visit | | OXYGEN EQUIPMENT PREPARER [address] | | | | | | [place] | | | | | | [address] | | +--------+ + + + + | 08/03/ | Home Care | Home Health Services | Won Zafar, | | | 2018 | Visit | | OXYGEN EQUIPMENT PREPARER [address] | | | | | | [place] | | | | | | [address] | | +--------+ + + + + [...] | | 2018 | Visit | | OXYGEN EQUIPMENT PREPARER [address] | | | | | | [place] | | | | | | [address] | | +--------+ + + + + | 08/10/ | Home Care | Home Health Services | Billy Jett, | | | 2018 | Visit | | PT [address] | | | | | | [place] | | | | | | [address] | | | | | | | | +--------+ + + + + | 08/11/ | Appointment | Home Health Services | Lisa Kearns RN | | | 2018 | | | | | +--------+ + + + + documented as of this encounter Visit Diagnoses Not on filedocumented in this encounter"
--- OUTSIDE RECORDS SUMMARY | ~2018-07-28 | XMS | Encounter Summary ---
Demographics + + + | Address | [address] | | | [place] [address] | + + + | Home Phone | | + + + | Preferred Language | Unknown | + + + | Marital Status | | + + + | Jewish Affiliation | 1041 | + + + | Race | Unknown | + + + | Ethnic Group | Unknown | + + + Author + + + | Author | [facility] | | | and [place] | + + + | Organization | [facility] | | | [...] Team Providers + +------+ + | Care Host/Hostess Restaurant Name | Role | Phone | + +------+ + | No Physician | PCP | Unavailable | + +------+ + Reason for Visit + + + | Reason | Comments | + + + | Home Health | | + + + Encounter Details +--------+ + + + + | Date | Type | Department | Care Team | Description | +--------+ + + + + | 07/18/ | Telephone | [facility] | Oscar Hodgson | Home Health | | 2019 | | [facility] | E, DO [address] | | | | | [facility] [address] | [place], [place] | | | | [address] [place], | [address] | | | | | [place] [address] | [phone] | | | | | [phone] | | | +--------+ + + + [...] | | 2018 | Visit | | ACTIVITIES MANAGER [address] | | | | | | ST [place] | | | | | | [address] | | +--------+ + + + + | 08/03/ | Home Care | Home Health Services | Won Zafar, | | | 2018 | Visit | | ACTIVITIES MANAGER [address] | | | | | | [place] | | | | | | [address] | | +--------+ + + + + [...] | | 2018 | Visit | | ACTIVITIES MANAGER [address] | | | | | | ST [place] | | | | | | [address] | | +--------+ + + + + | 08/10/ | Home Care | Home Health Services | Billy Jett, | | | 2018 | Visit | | PT [address] | | | | | | [place] | | | | | | [address] | | | | | | | | +--------+ + + + + | 08/11/ | Appointment | Home Health Services | Lisa Kearns RN | | | 2018 | | | | | +--------+ + + + + documented as of this encounter Visit Diagnoses Not on filedocumented in this encounter"
--- OUTSIDE RECORDS SUMMARY | ~2018-07-28 | XMS | Encounter Summary ---
Demographics + + + | Address | [address] | | | [place] [address] | + + + | Home Phone | | + + + | Preferred Language | Unknown | + + + | Marital Status | | + + + | Oriental Orthodox Affiliation | 1041 | + + + | Race | Unknown | + + + | Ethnic Group | Unknown | + + + Author + + + | Author | [facility] | | | and [place] | + + + | Organization | [facility] | | | [...] Team Providers + +------+ + | Care Public Aid Eligibility Assistant Name | Role | Phone | [...] Requisition | [place] [address] | infection | | | | [address] [place] | [address] | | | | | [place], [place] | [place] [address] | | | | | [address] | [phone] | | | | | [phone] | | | +--------+ + + + [...] | | 2018 | Visit | | RESORT DESK CLERK [address] | | | | | | [place] | | | | | | [address] | | +--------+ + + + + | 08/03/ | Home Care | Home Health Services | Won Zafar, | | | 2018 | Visit | | RESORT DESK CLERK [address] | | | | | | [place] | | | | | | [address] | | +--------+ + + + + [...] | | 2018 | Visit | | RESORT DESK CLERK [address] | | | | | | [place] | | | | | | [address] | | +--------+ + + + + | 08/10/ | Home Care | Home Health Services | Billy Jett, | | | 2018 | Visit | | PT [address] | | | | | | [place] | | | | | | [address] | | | | | | | [...] | + + + + + | [facility] | [address] | [place] | [phone] | | [facility] | | [address] | | | - LABORATORY | | [...] - 1.030 | [facility] | | | [place] | | | [facility] | | [...] + + | [facility] | [address] | [place] | [phone] | | [facility] | | [address] | | | - LABORATORY | | | | + + + + + documented in this encounter Visit Diagnoses + + | Diagnosis | + + | Urinary tract infection Urinary tract infection, site not specified | + + documented in this encounter"
--- OUTSIDE RECORDS SUMMARY | ~2018-07-28 | XMS | Encounter Summary ---
Demographics + + + | Address | [address] | | | [place] [address] | + + + | Home Phone | | + + + | Preferred Language | Unknown | + + + | Marital Status | | + + + | Moravian Affiliation | 1041 | + + + | Race | Unknown | + + + | Ethnic Group | Unknown | + + + Author + + + | Author | [facility] | | | and [place] | + + + | Organization | [facility] | | | [...] Team Providers + +------+ + | Care Plastic Fixture Builder Name | Role | Phone | + +------+ + | Oscar Hodgson DO | PCP | | + +------+ + Reason for Visit + + + | Reason | Comments | + + + | Treatment Order | verbal order today in about 20 minutes | + + + Encounter Details +--------+ + + + + | Date | Type | Department | Care Team | Description | +--------+ + + + + | 07/06/ | Telephone | [facility] | Oscar Hodgson | Treatment Order | | 2019 | | [facility] | E, DO [address] | (verbal order today | | | | [facility] [address] | [place], [place] | in about 20 minutes) | | | | [address] [place], | [address] | | | | | [place] [address] | [phone] | | | | | [phone] | | | +--------+ + + + [...] | | 2018 | Visit | | SEMICONDUCTOR DIES LOADER [address] | | | | | | [place] | | | | | | [address] | | +--------+ + + + + | 08/03/ | Home Care | Home Health Services | Won Zafar, | | | 2018 | Visit | | SEMICONDUCTOR DIES LOADER [address] | | | | | | [place] | | | | | | [address] | | +--------+ + + + + [...] | | 2018 | Visit | | SEMICONDUCTOR DIES LOADER [address] | | | | | | [place] | | | | | | [address] | | +--------+ + + + + | 08/10/ | Home Care | Home Health Services | Billy Jett, | | | 2018 | Visit | | PT [address] | | | | | | [place] | | | | | | [address] | | | | | | | | +--------+ + + + + | 08/11/ | Appointment | Home Health Services | Lisa Kearns RN | | | 2018 | | | | | +--------+ + + + + documented as of this encounter Visit Diagnoses Not on filedocumented in this encounter"
--- OUTSIDE RECORDS SUMMARY | ~2018-07-28 | XMS | Encounter Summary ---
Demographics + + + | Address | [address] | | | [place] [address] | + + + | Home Phone | | + + + | Preferred Language | Unknown | + + + | Marital Status | | + + + | Pentecostal Affiliation | 1041 | + + + | Race | Unknown | + + + | Ethnic Group | Unknown | + + + Author + + + | Author | [facility] | | | and [place] | + + + | Organization | [facility] | | | [...] Team Providers + +------+ + | Care Ssis Developer Name | Role | Phone | [...] [place] | | | | | [address] | [address] | | | | | [phone] | | | +--------+ + + + [...] | | 2018 | Visit | | REHABILITATION CASEWORKER [address] | | | | | | [place] | | | | | | [address] | | +--------+ + + + + | 08/01/ | Home Care | Home Health Services | | | | 2018 | Visit | | | | +--------+ + + + + | 08/01/ | Home Care | Home Health Services | Won Zafar, | | | 2018 | Visit | | REHABILITATION CASEWORKER [address] | | | | | | [place] | | | | | | [address] | | +--------+ + + + + | 08/03/ | Home Care | Home Health Services | Won Zafar, | | | 2018 | Visit | | REHABILITATION CASEWORKER [address] | | | | | | [place] | | | | | | [address] | | +--------+ + + + + [...] | | 2018 | Visit | | REHABILITATION CASEWORKER [address] | | | | | | [place] | | | | | | [address] | | +--------+ + + + + | 08/10/ | Home Care | Home Health Services | Billy Jett, | | | 2018 | Visit | | PT [address] | | | | | | [place] | | | | | | [address] | | | | | | | | +--------+ + + + + | 08/11/ | Appointment | Home Health Services | Lisa Kearns RN | | | 2018 | | | | | +--------+ + + + + documented as of this encounter Visit Diagnoses Not on filedocumented in this encounter"
--- OUTSIDE RECORDS SUMMARY | ~2018-07-28 | XMS | Encounter Summary ---
Demographics + + + | Address | [address] | | | [place] [address] | + + + | Home Phone | | + + + | Preferred Language | Unknown | + + + | Marital Status | | + + + | Synagogue Affiliation | 1041 | + + + | Race | Unknown | + + + | Ethnic Group | Unknown | + + + Author + + + | Author | [facility] | | | and [place] | + + + | Organization | [facility] | | | [...] Team Providers + +------+ + | Care Bag Bundler Name | Role | Phone | + [...] + | 06/23/ | Home Care | [facility] [place] | Lisa Kearns RN | SN REPEAT VISIT | | 2018 | Visit | [place] [address] | | | | | | [place] | | | | | | [address] | | | | | | [phone] | | | +--------+ + + + [...] + + + | Blood Pressure | 100/54 | 06/23/20181004 PDT | + + + + | Pulse | 64 | 06/23/20181004 PDT | + + + + | Temperature | 36.4 C (97.5 F) | 06/23/20181004 PDT | + + + + | Respiratory Rate | 16 | 06/23/20181004 PDT | + + + + | Oxygen Saturation | 96% | 06/23/20181004 PDT | + + + + | [...] | | 2019 | Visit | | SPORTS MARKETER [address] | | | | | | [place] | | | | | | [address] | | +--------+ + + + + | 08/01/ | Home Care | Home Health Services | | | | 2018 | Visit | | | | +--------+ + + + + | 08/01/ | Home Care | Home Health Services | Won Zafar, | | | 2018 | Visit | | SPORTS MARKETER [address] | | | | | | [place] | | | | | | [address] | | +--------+ + + + + | 08/03/ | Home Care | Home Health Services | Won Zafar, | | | 2018 | Visit | | SPORTS MARKETER [address] | | | | | | [place] | | | | | | [address] | | +--------+ + + + + [...] | 2018 | Visit | | SPORTS MARKETER [address] | | | | | | [place] | | | | | | [address] | | +--------+ + + + + | 08/10/ | Home Care | Home Health Services | Billy Jett, | | | 2019 | Visit | | PT [address] | | | | | | [place] | | | | | | [address] | | | | | | | | +--------+ + + + + | 08/11/ | Appointment | Home Health Services | Lisa Kearns RN | | | 2019 | | | | | +--------+ + + + + documented as of this encounter Visit Diagnoses Not on filedocumented in this encounter"
--- OUTSIDE RECORDS SUMMARY | ~2018-07-28 | XMS | Encounter Summary ---
Demographics + + + | Address | [address] | | | [place] [address] | + + + | Home Phone | | + + + | Preferred Language | Unknown | + + + | Marital Status | | + + + | Latter-Day Affiliation | 1041 | + + + | Race | Unknown | + + + | Ethnic Group | Unknown | + + + Author + + + | Author | [facility] | | | and [place] | + + + | Organization | [facility] | [...] Team Providers + +------+ + | Care Carpenters Name | Role | Phone | + [...] [place] | | | | | | [address] | | | | | | [phone] | | | +--------+ + + + [...] | | 2018 | Visit | | TOBACCO ROLLER [address] | | | | | | [place] | | | | | | [address] | | +--------+ + + + + | 08/01/ | Home Care | Home Health Services | | | | 2018 | Visit | | | | +--------+ + + + + | 08/01/ | Home Care | Home Health Services | Won Zafar, | | | 2018 | Visit | | TOBACCO ROLLER [address] | | | | | | [place] | | | | | | [address] | | +--------+ + + + + | 08/03/ | Home Care | Home Health Services | Won Zafar, | | | 2018 | Visit | | TOBACCO ROLLER [address] | | | | | | [place] | | | | | | [address] | | +--------+ + + + + [...] | | 2018 | Visit | | TOBACCO ROLLER [address] | | | | | | [place] | | | | | | [address] | | +--------+ + + + + | 08/10/ | Home Care | Home Health Services | Billy Jett, | | | 2019 | Visit | | PT [address] | | | | | | [place] | | | | | | [address] | | | | | | | | +--------+ + + + + | 08/11/ | Appointment | Home Health Services | Lisa Kearns RN | | | 2018 | | | | | +--------+ + + + + documented as of this encounter Visit Diagnoses Not on filedocumented in this encounter"
--- OUTSIDE RECORDS SUMMARY | ~2018-07-28 | XMS | Encounter Summary ---
Demographics + + + | Address | [address] | | | [place] [address] | + + + | Home Phone | | + + + | Preferred Language | Unknown | + + + | Marital Status | | + + + | Latter Day Affiliation | 1041 | + + + [...] Team Providers + +------+ + | Care Family Services Coordinator Name | Role | Phone | + [...] | | | | | [place] | | | | | | [address] | | | | | | [phone] | | | +--------+ + + + [...] Home Care | Home Health Services | Wno Zafar, | | | 2018 | Visit | | SUBJECT SCIENTIFIC RESEARCH [address] | | | | | | [place] | | | | | | [address] | | +--------+ + + + + | 08/01/ | Home Care | Home Health Services | | | | 2018 | Visit | | | | +--------+ + + + + | 08/01/ | Home Care | Home Health Services | Won Zafar, | | | 2018 | Visit | | SUBJECT SCIENTIFIC RESEARCH [address] | | | | | | [place] | | | | | | [address] | | +--------+ + + + + | 08/03/ | Home Care | Home Health Services | Won Zafar, | | | 2018 | Visit | | SUBJECT SCIENTIFIC RESEARCH [address] | | | | | | [place] | | | | | | [address] | | +--------+ + + + + [...] | | 2018 | Visit | | SUBJECT SCIENTIFIC RESEARCH [address] | | | | | | ST [place] | | | | | | [address] | | +--------+ + + + + | 08/10/ | Home Care | Home Health Services | Billy Jett, | | | 2018 | Visit | | PT [address] | | | | | | [place] | | | | | | [address] | | | | | | | | +--------+ + + + + | 08/11/ | Appointment | Home Health Services | Lisa Kearns RN | | | 2018 | | | | | +--------+ + + + + documented as of this encounter Visit Diagnoses Not on filedocumented in this encounter"
--- OUTSIDE RECORDS SUMMARY | ~2018-07-28 | XMS | Encounter Summary ---
Demographics + + + | Address | [address] | | | [place] [address] | + + + | Home Phone | | + + + | Preferred Language | Unknown | + + + | Marital Status | | + + + | Confucianist Affiliation | 1041 | + + + | Race | Unknown | + + + | Ethnic Group | Unknown | + + + Author + + + | Author | [facility] | | | and [place] | + + + | Organization | [facility] | | | [...] Team Providers + +------+ + | Care Outsole Compressor Name | Role | Phone | + [...] [place] | | | | | | [address] | | | | | | [phone] | | | +--------+ + + + [...] | | 2019 | Visit | | RING SORTER [address] | | | | | | ST [place] | | | | | | [address] | | +--------+ + + + + | 08/01/ | Home Care | Home Health Services | | | | 2018 | Visit | | | | +--------+ + + + + | 08/01/ | Home Care | Home Health Services | Won Zafar, | | | 2018 | Visit | | RING SORTER [address] | | | | | | [place] | | | | | | [address] | | +--------+ + + + + | 08/03/ | Home Care | Home Health Services | Won Zafar, | | | 2018 | Visit | | RING SORTER [address] | | | | | | [place] | | | | | | [address] | | +--------+ + + + + [...] | | 2018 | Visit | | RING SORTER [address] | | | | | | [place] | | | | | | [address] | | +--------+ + + + + | 08/10/ | Home Care | Home Health Services | Billy Jett, | | | 2019 | Visit | | PT [address] | | | | | | [place] | | | | | | [address] | | | | | | | | +--------+ + + + + | 08/11/ | Appointment | Home Health Services | Lisa Kearns RN | | | 2019 | | | | | +--------+ + + + + documented as of this encounter Visit Diagnoses Not on filedocumented in this encounter"
--- OUTSIDE RECORDS SUMMARY | ~2018-07-28 | XMS | Encounter Summary ---
Demographics + + + | Address | [address] | | | [place] [address] | + + + | Home Phone [...] Team Providers + +------+ + | Care Tar Man Name | Role | Phone | + [...] Visit | [place] [address] | UMBRELLA TIPPER MACHINE [address] | | | | | [place], [place] | [place], [place] | | | | | [address] | [address] | | | | | [phone] | | | +--------+ + + + [...] | | 2018 | Visit | | UMBRELLA TIPPER MACHINE [address] | | | | | | [place] | | | | | | [address] | | +--------+ + + + + | 08/01/ | Home Care | Home Health Services | | | | 2018 | Visit | | | | +--------+ + + + + | 08/01/ | Home Care | Home Health Services | Won Zafar, | | | 2018 | Visit | | UMBRELLA TIPPER MACHINE [address] | | | | | | [place] | | | | | | [address] | | +--------+ + + + + | 08/03/ | Home Care | Home Health Services | Won Zafar, | | | 2018 | Visit | | UMBRELLA TIPPER MACHINE [address] | | | | | | [place] | | | | | | [address] | | +--------+ + + + + [...] | | 2018 | Visit | | UMBRELLA TIPPER MACHINE [address] | | | | | | [place] | | | | | | [address] | | +--------+ + + + + | 08/10/ | Home Care | Home Health Services | Billy Jett, | | | 2018 | Visit | | PT [address] | | | | | | [place] | | | | | | [address] | | | | | | | | +--------+ + + + + | 08/11/ | Appointment | Home Health Services | Lisa Kearns RN | | | 2018 | | | | | +--------+ + + + + documented as of this encounter Visit Diagnoses Not on filedocumented in this encounter"
--- OUTSIDE RECORDS SUMMARY | ~2018-07-28 | XMS | Encounter Summary ---
Demographics + + + | Address | [address] | | | [place] [address] | + + + | Home Phone | | + + + | Preferred Language | Unknown | + + + | Marital Status | | + + + | Advent Affiliation | 1041 | + + + | Race | Unknown | + + + | Ethnic Group | Unknown | + + + Author + + + | Author | [facility] | | | and [place] | + + + | Organization | [facility] | | [...] Team Providers + +------+ + | Care Supervisor Powdered Sugar Name | Role | Phone | + [...] | 06/27/ | Home Care | [facility] [place] | Nadia Mclean, PT | CASE COMMUNICATION | | 2019 | Visit | [place] [address] | | | | | | [place] | | | | | | [address] | | | | | | [phone] | | | +--------+ + + + [...] | | 2018 | Visit | | STONE LATHE OPERATOR [address] | | | | | | [place] | | | | | | [address] | | +--------+ + + + + | 08/01/ | Home Care | Home Health Services | | | | 2018 | Visit | | | | +--------+ + + + + | 08/01/ | Home Care | Home Health Services | Won Zafar, | | | 2018 | Visit | | STONE LATHE OPERATOR [address] | | | | | | [place] | | | | | | [address] | | +--------+ + + + + | 08/03/ | Home Care | Home Health Services | Won Zafar, | | | 2018 | Visit | | STONE LATHE OPERATOR [address] | | | | | | [place] | | | | | | [address] | | +--------+ + + + + [...] | | 2018 | Visit | | STONE LATHE OPERATOR [address] | | | | | | [place] | | | | | | [address] | | +--------+ + + + + | 08/10/ | Home Care | Home Health Services | Billy Jett, | | | 2018 | Visit | | PT [address] | | | | | | [place] | | | | | | [address] | | | | | | | | +--------+ + + + + | 08/11/ | Appointment | Home Health Services | Lisa Kearns RN | | | 2018 | | | | | +--------+ + + + + documented as of this encounter Visit Diagnoses Not on filedocumented in this encounter"
--- OUTSIDE RECORDS SUMMARY | ~2018-07-28 | XMS | Encounter Summary ---
Demographics + + + | Address | [address] | | | [place] [address] | + + + | Home Phone [...] Team Providers + +------+ + | Care Cae Engineer Name | Role | Phone | + [...] 06/30/ | Home Care | [facility] [place] | Won Zafar, | PT REPEAT VISIT | | 2019 | Visit | [place] [address] | SAFETY EQUIPMENT TESTER [address] | | | | | [place], [place] | [facility] [place] [place] | | | | | [address] | [address] | | | | | [phone] | | | +--------+ + + + [...] + +---------+ + | Blood Pressure | 120/85 | 06/30/20181099 PDT | + +---------+ + | Pulse | 80 | 06/30/20181099 PDT | + +---------+ + | Temperature | - | - | + +---------+ + | Respiratory Rate | - | - | + +---------+ + | Oxygen Saturation | 95% | 06/30/20181099 PDT | + +---------+ + | Inhaled [...] | | 2018 | Visit | | SAFETY EQUIPMENT TESTER [address] | | | | | | [place] | | | | | | [address] | | +--------+ + + + + | 08/01/ | Home Care | Home Health Services | | | | 2018 | Visit | | | | +--------+ + + + + | 08/01/ | Home Care | Home Health Services | Won Zafar, | | | 2018 | Visit | | SAFETY EQUIPMENT TESTER [address] | | | | | | [place] | | | | | | [address] | | +--------+ + + + + | 08/03/ | Home Care | Home Health Services | Won Zafar, | | | 2018 | Visit | | SAFETY EQUIPMENT TESTER [address] | | | | | | [place] | | | | | | [address] | | +--------+ + + + + [...] | | 2018 | Visit | | SAFETY EQUIPMENT TESTER [address] | | | | | | [place] | | | | | | [address] | | +--------+ + + + + | 08/10/ | Home Care | Home Health Services | Billy Jett, | | | 2018 | Visit | | PT [address] | | | | | | [place] | | | | | | [address] | | | | | | | | +--------+ + + + + | 08/11/ | Appointment | Home Health Services | Lisa Kearns RN | | | 2018 | | | | | +--------+ + + + + documented as of this encounter Visit Diagnoses Not on filedocumented in this encounter"
--- OUTSIDE RECORDS SUMMARY | ~2018-07-28 | XMS | Encounter Summary ---
Demographics + + + | Address | [address] | | | [place] [address] | + + + | Home Phone | | + + + | Preferred Language | Unknown | + + + | Marital Status | | + + + | Jehovah'S Witness Affiliation | 1041 | + + + [...] Team Providers + +------+ + | Care Motor Driver Name | Role | Phone | + [...] [place] | | | | | | [address] | | | | | | [phone] | | | +--------+ + + + [...] | | 2018 | Visit | | ASSISTANT BASKETBALL COACH [address] | | | | | | [place] | | | | | | [address] | | +--------+ + + + + | 08/03/ | Home Care | Home Health Services | Won Zafar, | | | 2018 | Visit | | ASSISTANT BASKETBALL COACH [address] | | | | | | [place] | | | | | | [address] | | +--------+ + + + + [...] | | 2018 | Visit | | ASSISTANT BASKETBALL COACH [address] | | | | | | [place] | | | | | | [address] | | +--------+ + + + + | 08/10/ | Home Care | Home Health Services | Billy Jett, | | | 2019 | Visit | | PT [address] | | | | | | [place] | | | | | | [address] | | | | | | | | +--------+ + + + + | 08/11/ | Appointment | Home Health Services | Lisa Kearns RN | | | 2018 | | | | | +--------+ + + + + documented as of this encounter Visit Diagnoses Not on filedocumented in this encounter"
--- OUTSIDE RECORDS SUMMARY | ~2018-07-28 | XMS | Encounter Summary ---
Demographics + + + | Address | [address] | | | [place] [address] | + + + | Home Phone | | + + + | Preferred Language | Unknown | + + + | Marital Status | | + + + | Zoroastrianism Affiliation | 1041 | + + + | Race | Unknown | + + + | Ethnic Group | Unknown | + + + Author + + + | Author | [facility] | | | and [place] | + + + | Organization | [facility] | | [...] Team Providers + +------+ + | Care Retail Client Solutions Consultant Name | Role | Phone | [...] + | 07/14/ | Home Care | PROV JULISSA [place] | Lisa Kearns RN | SN REPEAT VISIT | | 2019 | Visit | [place] [address] | | | | | | [place] | | | | | | [address] | | | | | | [phone] | | | +--------+ + + + [...] + + + | Blood Pressure | 94/40 | 07/14/2018956 PDT | + + + + | Pulse | 60 | 07/14/2018956 PDT | + + + + | Temperature | 36.9 C (98.4 F) | 07/14/2018956 PDT | + + + + | Respiratory Rate | 16 | 07/14/2018956 PDT | + + + + | Oxygen Saturation | 99% | 07/14/2018956 PDT | + + + + | [...] | | 2019 | Visit | | FOREST RESOURCES PROFESSOR [address] | | | | | | [place] | | | | | | [address] | | +--------+ + + + + | 08/01/ | Home Care | Home Health Services | | | | 2018 | Visit | | | | +--------+ + + + + | 08/01/ | Home Care | Home Health Services | Won Zafar, | | | 2018 | Visit | | FOREST RESOURCES PROFESSOR [address] | | | | | | [place] | | | | | | [address] | | +--------+ + + + + | 08/03/ | Home Care | Home Health Services | Won Zafar, | | | 2018 | Visit | | FOREST RESOURCES PROFESSOR [address] | | | | | | [place] | | | | | | [address] | | +--------+ + + + + [...] | | 2018 | Visit | | FOREST RESOURCES PROFESSOR [address] | | | | | | [place] | | | | | | [address] | | +--------+ + + + + | 08/10/ | Home Care | Home Health Services | Billy Jett, | | | 2019 | Visit | | PT [address] | | | | | | [place] | | | | | | [address] | | | | | | | | +--------+ + + + + | 08/11/ | Appointment | Home Health Services | Lisa Kearns RN | | | 2019 | | | | | +--------+ + + + + documented as of this encounter Visit Diagnoses Not on filedocumented in this encounter"
--- OUTSIDE RECORDS SUMMARY | ~2018-07-28 | XMS | Clinical Summary ---
Demographics + + + | Address | [address] | | | [place] [address] | + + + | Home Phone | | + + + | Preferred Language | Unknown | + + + | Marital Status | Unknown | + + + | Nondenominational Affiliation | 1041 | + + + | Race | Unknown | + + + | Ethnic Group | Unknown | + + + Author + + + | Author | [facility] | + + + | Organization | [facility] | + + + | Address [...] Team Providers + +------+ + | Care Manager Finance Name | Role | Phone | + [...] + + + | Current use of fpc anticoagulation | 10/10/2017 | + + + [...] | | | | | [place] [address] | | | | | | [phone] | | | | | | | [...] +------+-------+ + | MEDICARE | MEDICA | [id number] | | | [address] | | | [place] | | | | [place] [address] | | | IP-OP | | | | | + +--------+ +------+-------+ + | MEDICAID | MEDICA | [id number] | | | [address] | | | ID | | | | [place] | | | [place] | | | | [address] | + +--------+ +------+-------+ + | /[facility] | YELLOW | [id number] | | | | | PLANS | [...] [place] | al/[place] | | 1946 | [phone] [place] | | | [place] | | | [address] | [phone] | + +--------+ +--------+ + +
--- OUTSIDE RECORDS SUMMARY | ~2018-07-28 | XMS | Encounter Summary ---
Demographics + + + | Address | [address] | | | [place] [address] | + + + | Home Phone | | + + + | Preferred Language | Unknown | + + + | Marital Status | | + + + | Pentecostalism Affiliation | 1041 | + + + [...] Team Providers + +------+ + | Care Bread Slicer Machine Name | Role | Phone | + [...] [place] | | | | | | [address] | | | | | | [phone] | | | +--------+ + + + [...] | | 2018 | Visit | | DRIER UNLOADER [address] | | | | | | [place] | | | | | | [address] | | +--------+ + + + + | 08/03/ | Home Care | Home Health Services | Won Zafar, | | | 2018 | Visit | | DRIER UNLOADER [address] | | | | | | [place] | | | | | | [address] | | +--------+ + + + + [...] | | 2018 | Visit | | DRIER UNLOADER [address] | | | | | | [place] | | | | | | [address] | | +--------+ + + + + | 08/10/ | Home Care | Home Health Services | Billy Jett, | | | 2019 | Visit | | PT [address] | | | | | | [place] | | | | | | [address] | | | | | | | | +--------+ + + + + | 08/11/ | Appointment | Home Health Services | Lisa Kearns RN | | | 2018 | | | | | +--------+ + + + + documented as of this encounter Visit Diagnoses Not on filedocumented in this encounter"
--- OUTSIDE RECORDS SUMMARY | ~2018-07-28 | XMS | Encounter Summary ---
Demographics + + + | Address | [address] | | | [place] [address] | + + + | Home Phone | | + + + | Preferred Language | Unknown | + + + | Marital Status | | + + + | Hoahaoism Affiliation | 1041 | + + + [...] Team Providers + +------+ + | Care Coroner'S Juror Name | Role | Phone | + [...] [place] | | | | | | [address] | | | | | | [phone] | | | +--------+ + + + [...] | | 2019 | Visit | | HOSPICE CARE CONSULTANT [address] | | | | | | [place] | | | | | | [address] | | +--------+ + + + + | 08/01/ | Home Care | Home Health Services | | | | 2018 | Visit | | | | +--------+ + + + + | 08/01/ | Home Care | Home Health Services | Won Zafar, | | | 2018 | Visit | | HOSPICE CARE CONSULTANT [address] | | | | | | [place] | | | | | | [address] | | +--------+ + + + + | 08/03/ | Home Care | Home Health Services | Won Zafar, | | | 2018 | Visit | | HOSPICE CARE CONSULTANT [address] | | | | | | [place] | | | | | | [address] | | +--------+ + + + + [...] | | 2018 | Visit | | HOSPICE CARE CONSULTANT [address] | | | | | | [place] | | | | | | [address] | | +--------+ + + + + | 08/10/ | Home Care | Home Health Services | Billy Jett, | | | 2019 | Visit | | PT [address] | | | | | | [place] | | | | | | [address] | | | | | | | | +--------+ + + + + | 08/11/ | Appointment | Home Health Services | Lisa Kearns RN | | | 2019 | | | | | +--------+ + + + + documented as of this encounter Visit Diagnoses Not on filedocumented in this encounter"
--- OUTSIDE RECORDS SUMMARY | ~2018-07-28 | XMS | Encounter Summary ---
Demographics + + + | Address | [address] | | | [place] [address] | + + + | Home Phone [...] | Author | [facility] | | | and [place] | + [...] Team Providers + +------+ + | Care Rating Examiner Name | Role | Phone | + [...] + | 07/06/ | Home Care | [facility] [place] | Won Zafar, | PT REPEAT VISIT | | 2019 | Visit | [place] [address] | FASTENER TECHNOLOGIST [address] | | | | | [place], [place] | [place], [place] | | | | | [address] | [address] | | | | | [phone] | | | +--------+ + + + [...] + +---------+ + | Blood Pressure | 100/50 | 07/06/20181031 PDT | + +---------+ + | Pulse | 51 | 07/06/20181031 PDT | + +---------+ + | Temperature | - | - | + +---------+ + | Respiratory Rate | - | - | + +---------+ + | Oxygen Saturation | 97% | 07/06/20181031 PDT | + +---------+ + | Inhaled [...] | | 2018 | Visit | | FASTENER TECHNOLOGIST [address] | | | | | | [place] | | | | | | [address] | | +--------+ + + + + | 08/01/ | Home Care | Home Health Services | | | | 2018 | Visit | | | | +--------+ + + + + | 08/01/ | Home Care | Home Health Services | Won Zafar, | | | 2018 | Visit | | FASTENER TECHNOLOGIST [address] | | | | | | [place] | | | | | | [address] | | +--------+ + + + + | 08/03/ | Home Care | Home Health Services | Won Zafar, | | | 2018 | Visit | | FASTENER TECHNOLOGIST [address] | | | | | | [place] | | | | | | [address] | | +--------+ + + + + [...] | | 2018 | Visit | | FASTENER TECHNOLOGIST [address] | | | | | | [place] | | | | | | [address] | | +--------+ + + + + | 08/10/ | Home Care | Home Health Services | Billy Jett, | | | 2018 | Visit | | PT [address] | | | | | | [place] | | | | | | [address] | | | | | | | | +--------+ + + + + | 08/11/ | Appointment | Home Health Services | Lisa Kearns RN | | | 2018 | | | | | +--------+ + + + + documented as of this encounter Visit Diagnoses Not on filedocumented in this encounter"
--- OUTSIDE RECORDS SUMMARY | ~2018-07-28 | XMS | Encounter Summary ---
Demographics + + + | Address | [address] | | | [place] [address] | + + + | Home Phone | | + + + | Preferred Language | Unknown | + + + | Marital Status | | + + + | Episcopal Affiliation | 1041 | + + + | Race | Unknown | + + + | Ethnic Group | Unknown | + + + Author + + + | Author | [facility] | | | and [place] | + + + | Organization | [facility] | | | and [...] Team Providers + +------+ + | Care Multiple Wire Sawyer Name | Role | Phone | + [...] Requisition | [place] [address] | infection | | | | [address] [place] | [address] | | | | | [place], [place] | [place] [address] | | | | | [address] | [phone] | | | | | [phone] | | | +--------+ + + + [...] | | 2018 | Visit | | ENRICHMENT TEACHER [address] | | | | | | [place], [place] | | | | | | [address] | | +--------+ + + + + | 08/01/ | Home Care | Home Health Services | | | | 2019 | Visit | | | | +--------+ + + + + | 08/01/ | Home Care | Home Health Services | Won Zafar, | | | 2018 | Visit | | ENRICHMENT TEACHER [address] | | | | | | [place] | | | | | | [address] | | +--------+ + + + + | 08/03/ | Home Care | Home Health Services | Won Zafar, | | | 2019 | Visit | | ENRICHMENT TEACHER [address] | | | | | | [place] | | | | | | [address] | | +--------+ + + + + [...] | | 2018 | Visit | | ENRICHMENT TEACHER [address] | | | | | | ST [place] | | | | | | [address] | | +--------+ + + + + | 08/10/ | Home Care | Home Health Services | Billy Jett, | | | 2018 | Visit | | PT [address] | | | | | | [place] | | | | | | [address] | | | | | | | [...] [address] | [place] | [phone] | | [facility] | | [address] | | | - LABORATORY | | [...] - 1.030 | [facility] | | | [place] | | | [facility] | | [...] | | Urine | | | [address] [place] | | | | | | [...] ST. | [address] | [place], [place] | [phone] | | [facility] | | [address] | | | - LABORATORY | | | | + + + + + documented in this encounter Visit Diagnoses + + | Diagnosis | + + | Urinary tract infection Urinary tract infection, site not specified | + + documented in this encounter"
--- OUTSIDE RECORDS SUMMARY | ~2018-07-28 | XMS | Encounter Summary ---
Demographics + + + | Address | [address] | | | [place] [address] | + + + | Home Phone | | + + + | Preferred Language | Unknown | + + + | Marital Status | | + + + | Evangelical Affiliation | 1041 | + + + | Race | Unknown | + + + | Ethnic Group | Unknown | + + + Author + + + | Author | [facility] | | | and [place] | + + + | Organization | [facility] | | | and [place] | + + + | Address | Unknown | + + + | Phone | Unavailable | + + + Support + + +---------+ + | Name | Relationship | Address | Phone | + + +---------+ + | Girihs Donato | ECON | Unknown | | + + +---------+ + | Shakila Rosas | ECON | Unknown | | + + +---------+ + Care Team Providers + +------+ + | Care Grape Picker Name | Role | Phone | + [...] [place] | | | | | | [address] | | | | | | [phone] | | | +--------+ + + + [...] | | 2018 | Visit | | TOP EXECUTIVE [address] | | | | | | [place] | | | | | | [address] | | +--------+ + + + + | 08/01/ | Home Care | Home Health Services | | | | 2018 | Visit | | | | +--------+ + + + + | 08/01/ | Home Care | Home Health Services | Won Zafar, | | | 2018 | Visit | | TOP EXECUTIVE [address] | | | | | | [place] | | | | | | [address] | | +--------+ + + + + | 08/03/ | Home Care | Home Health Services | Won Zafar, | | | 2018 | Visit | | TOP EXECUTIVE [address] | | | | | | [place] | | | | | | [address] | | +--------+ + + + + [...] | | 2018 | Visit | | TOP EXECUTIVE [address] | | | | | | [place] | | | | | | [address] | | +--------+ + + + + | 08/10/ | Home Care | Home Health Services | Billy Jett, | | | 2018 | Visit | | PT [address] | | | | | | [place] | | | | | | [address] | | | | | | | | +--------+ + + + + | 08/11/ | Appointment | Home Health Services | Lisa Kearns RN | | | 2018 | | | | | +--------+ + + + + documented as of this encounter Visit Diagnoses Not on filedocumented in this encounter"
--- OUTSIDE RECORDS SUMMARY | ~2018-07-28 | XMS | Encounter Summary ---
Demographics + + + | Address | [address] | | | [place] [address] | + + + | Home Phone | | + + + | Preferred Language | Unknown | + + + | Marital Status | | + + + | Orthodoxy Affiliation | 1041 | + + + [...] | + + +---------+ + | Shakila Rossa | ECON | Unknown | | + + +---------+ + Care Team Providers + +------+ + | Care Slitter Creaser Slotter Operator Name | Role | Phone | [...] | Pressure | Juan M, DO | [facility] | | | | | ulcer of | [address] | [address] | | | | | sacral | [address] | [address] [place] | | | | | region, | WAY | [place], [place] | | | | | unspecified | [place], | [address] | | | | | stage | [place] [address] | Phone: | | | | | | Phone: | [phone] | | | | | | [phone] | Fax: | | | | | | Fax: | [phone] | | | | | | [phone] | | +--------+--------+ + + + + [...] | | | | [place] | | | | | | [address] | | | | | | [phone] | | | +--------+ + + + [...] | 2018 | Visit | | SALES DEPARTMENT SUPERVISOR [address] | | | | | | ST [place] | | | | | | [address] | | +--------+ + + + + | 08/03/ | Home Care | Home Health Services | Won Zafar, | | | 2018 | Visit | | SALES DEPARTMENT SUPERVISOR [address] | | | | | | ST [place] | | | | | | [address] | | +--------+ + + + + [...] | 2018 | Visit | | SALES DEPARTMENT SUPERVISOR [address] | | | | | | ST [place] | | | | | | [address] | | +--------+ + + + + | 08/10/ | Home Care | Home Health Services | Billy Jett, | | | 2018 | Visit | | PT [address] | | | | | | [place] | | | | | | [address] | | | | | | | | +--------+ + + + + | 08/11/ | Appointment | Home Health Services | Lisa Kearns RN | | | 2018 | | | | | +--------+ + + + + documented as of this encounter Visit Diagnoses Not on filedocumented in this encounter"
--- OUTSIDE RECORDS SUMMARY | ~2018-07-28 | XMS | Encounter Summary ---
Demographics + + + | Address | [address] | | | [place] [address] | + + + | Home Phone | | + + + | Preferred Language | Unknown | + + + | Marital Status | | + + + | Muslim Affiliation | 1041 | + + + [...] Team Providers + +------+ + | Care Human Resources Associate Name | Role | Phone | [...] [place] | | | | | | [address] | | | | | | [phone] | | | +--------+ + + + [...] | | 2019 | Visit | | COLLEGE SPORTS COACH [address] | | | | | | [place] | | | | | | [address] | | +--------+ + + + + | 08/01/ | Home Care | Home Health Services | | | | 2018 | Visit | | | | +--------+ + + + + | 08/01/ | Home Care | Home Health Services | Won Zafar, | | | 2018 | Visit | | COLLEGE SPORTS COACH [address] | | | | | | [place] | | | | | | [address] | | +--------+ + + + + | 08/03/ | Home Care | Home Health Services | Won Zafar, | | | 2018 | Visit | | COLLEGE SPORTS COACH [address] | | | | | | [place] | | | | | | [address] | | +--------+ + + + + [...] | | 2018 | Visit | | COLLEGE SPORTS COACH [address] | | | | | | [place] | | | | | | [address] | | +--------+ + + + + | 08/10/ | Home Care | Home Health Services | Billy Jett, | | | 2019 | Visit | | PT [address] | | | | | | [place] | | | | | | [address] | | | | | | | | +--------+ + + + + | 08/11/ | Appointment | Home Health Services | Lisa Kearns RN | | | 2019 | | | | | +--------+ + + + + documented as of this encounter Visit Diagnoses Not on filedocumented in this encounter"
--- OUTSIDE RECORDS SUMMARY | ~2018-07-28 | XMS | Encounter Summary ---
Demographics + + + | Address | [address] | | | [place] [address] | + + + | Home Phone | | + + + | Preferred Language | Unknown | + + + | Marital Status | | + + + | Jehovah'S Witness Affiliation | 1041 | + + + | Race | Unknown | + + + | Ethnic Group | Unknown | + + + Author + + + | Author | [facility] | | | and [place] | + + + | Organization | [facility] | | | and [...] Team Providers + +------+ + | Care Geriatric Social Worker Name | Role | Phone | + [...] [place] | | | | | | [address] | | | | | | [phone] | | | +--------+ + + + [...] | | 2018 | Visit | | WIRE SETTER [address] | | | | | | [place] | | | | | | [address] | | +--------+ + + + + | 08/01/ | Home Care | Home Health Services | | | | 2018 | Visit | | | | +--------+ + + + + | 08/01/ | Home Care | Home Health Services | Won Zafar, | | | 2018 | Visit | | WIRE SETTER [address] | | | | | | [place] | | | | | | [address] | | +--------+ + + + + | 08/03/ | Home Care | Home Health Services | Won Zafar, | | | 2018 | Visit | | WIRE SETTER [address] | | | | | | [place] | | | | | | [address] | | +--------+ + + + + [...] | | 2018 | Visit | | WIRE SETTER [address] | | | | | | [place] | | | | | | [address] | | +--------+ + + + + | 08/10/ | Home Care | Home Health Services | Billy Jett, | | | 2018 | Visit | | PT [address] | | | | | | [place] | | | | | | [address] | | | | | | | | +--------+ + + + + | 08/11/ | Appointment | Home Health Services | Lisa Kearns RN | | 2018 | | | | | +--------+ + + + + documented as of this encounter Visit Diagnoses Not on filedocumented in this encounter"
--- OUTSIDE RECORDS SUMMARY | ~2018-07-28 | XMS | Encounter Summary ---
Demographics + + + | Address | [address] | | | [place] [address] | + + + | Home Phone | | + + + | Preferred Language | Unknown | + + + | Marital Status | | + + + | Denominational Affiliation | 1041 | + + + | Race | Unknown | + + + | Ethnic Group | Unknown | + + + Author + + + | Author | [facility] | | | and [place] | + + + | Organization | [facility] | | | [...] Team Providers + +------+ + | Care Regulatory Coordinator Name | Role | Phone | [...] [place] | | | | | | [address] | | | | | | [phone] | | | +--------+ + + + [...] | | 2018 | Visit | | NEUROSURGICAL NURSE [address] | | | | | | [place] | | | | | | [address] | | +--------+ + + + + | 08/03/ | Home Care | Home Health Services | Won Zafar, | | | 2018 | Visit | | NEUROSURGICAL NURSE [address] | | | | | | [place] | | | | | | [address] | | +--------+ + + + + [...] | | 2018 | Visit | | NEUROSURGICAL NURSE [address] | | | | | | ST [place] | | | | | | [address] | | +--------+ + + + + | 08/10/ | Home Care | Home Health Services | Billy Jett, | | | 2018 | Visit | | PT [address] | | | | | | [place] | | | | | | [address] | | | | | | | | +--------+ + + + + | 08/11/ | Appointment | Home Health Services | Lisa Kearns RN | | | 2018 | | | | | +--------+ + + + + documented as of this encounter Visit Diagnoses Not on filedocumented in this encounter"
--- OUTSIDE RECORDS SUMMARY | ~2018-07-28 | XMS | Encounter Summary ---
Demographics + + + | Address | [address] | | | [place] [address] | + + + | Home Phone | | + + + | Preferred Language | Unknown | + + + | Marital Status | | + + + | Bahai Affiliation | 1041 | + + + | Race | Unknown | + + + | Ethnic Group | Unknown | + + + Author + + + | Author | [facility] | | | and [place] | + + + | Organization | [facility] | | | and [...] Team Providers + +------+ + | Care Acupressurist Name | Role | Phone | + [...] [place] | | | | | | [address] | | | | | | [phone] | | | +--------+ + + + [...] | | 2019 | Visit | | BAGGAGE HANDLING SUPERVISOR [address] | | | | | | [place] | | | | | | [address] | | +--------+ + + + + | 08/01/ | Home Care | Home Health Services | | | | 2018 | Visit | | | | +--------+ + + + + | 08/01/ | Home Care | Home Health Services | Won Zafar, | | | 2018 | Visit | | BAGGAGE HANDLING SUPERVISOR [address] | | | | | | [place] | | | | | | [address] | | +--------+ + + + + | 08/03/ | Home Care | Home Health Services | Won Zafar, | | | 2018 | Visit | | BAGGAGE HANDLING SUPERVISOR [address] | | | | | | [place] | | | | | | [address] | | +--------+ + + + + [...] | | 2018 | Visit | | BAGGAGE HANDLING SUPERVISOR [address] | | | | | | [place] | | | | | | [address] | | +--------+ + + + + | 08/10/ | Home Care | Home Health Services | Billy Jett, | | | 2019 | Visit | | PT [address] | | | | | | [place] | | | | | | [address] | | | | | | | | +--------+ + + + + | 08/11/ | Appointment | Home Health Services | Lisa Kearns RN | | | 2019 | | | | | +--------+ + + + + documented as of this encounter Visit Diagnoses Not on filedocumented in this encounter"
--- OUTSIDE RECORDS SUMMARY | ~2018-07-28 | XMS | Encounter Summary ---
Demographics + + + | Address | [address] | | | [place] [address] | + + + | Home Phone | | + + + | Preferred Language | Unknown | + + + | Marital Status | | + + + | Lutheran Affiliation | 1041 | + + + | Race | Unknown | + + + | Ethnic Group | Unknown | + + + Author + + + | Author | [facility] | | | and [place] | + + + | Organization | [facility] | | [...] Team Providers + +------+ + | Care Congressional Aide Name | Role | Phone | + [...] [place] | | | | | | [address] | | | | | | [phone] | | | +--------+ + + + [...] | | 2019 | Visit | | [address] | | | | | | [place] | | | | | | [address] | | +--------+ + + + + | 08/01/ | Home Care | Home Health Services | | | | 2018 | Visit | | | | +--------+ + + + + | 08/01/ | Home Care | Home Health Services | Won Zafar, | | | 2018 | Visit | | [address] | | | | | | [place] | | | | | | [address] | | +--------+ + + + + | 08/03/ | Home Care | Home Health Services | Won Zafar, | | | 2018 | Visit | | [address] | | | | | | [place] | | | | | | [address] | | +--------+ + + + + [...] | | 2018 | Visit | | [address] | | | | | | [place] | | | | | | [address] | | +--------+ + + + + | 08/10/ | Home Care | Home Health Services | Billy Jett, | | | 2019 | Visit | | PT [address] | | | | | | [place] | | | | | | [address] | | | | | | | | +--------+ + + + + | 08/11/ | Appointment | Home Health Services | Lisa Kearns RN | | | 2019 | | | | | +--------+ + + + + documented as of this encounter Visit Diagnoses Not on filedocumented in this encounter"
--- OUTSIDE RECORDS SUMMARY | ~2018-07-28 | XMS | Encounter Summary ---
Demographics + + + | Address | [address] | | | [place] [address] | + + + | Home Phone | | + + + | Preferred Language | Unknown | + + + | Marital Status | | + + + | Spiritism Affiliation | 1041 | + + + [...] Team Providers + +------+ + | Care Insurance Advisor Name | Role | Phone | + [...] [place] | | | | | | [address] | | | | | | [phone] | | | +--------+ + + + [...] | | 2018 | Visit | | METAL RIVET MACHINE OPERATOR [address] | | | | | | [place] | | | | | | [address] | | +--------+ + + + + | 08/03/ | Home Care | Home Health Services | Won Zafar, | | | 2018 | Visit | | METAL RIVET MACHINE OPERATOR [address] | | | | | | [place] | | | | | | [address] | | +--------+ + + + + [...] | | 2018 | Visit | | METAL RIVET MACHINE OPERATOR [address] | | | | | | [place] | | | | | | [address] | | +--------+ + + + + | 08/10/ | Home Care | Home Health Services | Billy Jett, | | | 2018 | Visit | | PT [address] | | | | | | [place] | | | | | | [address] | | | | | | | | +--------+ + + + + | 08/11/ | Appointment | Home Health Services | Lisa Kearns RN | | | 2018 | | | | | +--------+ + + + + documented as of this encounter Visit Diagnoses Not on filedocumented in this encounter"
--- OUTSIDE RECORDS SUMMARY | ~2018-07-28 | XMS | Encounter Summary ---
Demographics + + + | Address | [address] | | | [place] [address] | + + + | Home Phone [...] Team Providers + +------+ + | Care Operations Research Analyst Name | Role | Phone | + [...] [place] | | | | | | [address] | | | | | | [phone] | | | +--------+ + + + [...] | | 2018 | Visit | | OTHER SPORTS COACH OR INSTRUCTOR [address] | | | | | | [place] | | | | | | [address] | | +--------+ + + + + | 08/03/ | Home Care | Home Health Services | Won Zafar, | | | 2018 | Visit | | OTHER SPORTS COACH OR INSTRUCTOR [address] | | | | | | [place] | | | | | | [address] | | +--------+ + + + + [...] | | 2018 | Visit | | OTHER SPORTS COACH OR INSTRUCTOR [address] | | | | | | [place] | | | | | | [address] | | +--------+ + + + + | 08/10/ | Home Care | Home Health Services | Billy Jett, | | | 2018 | Visit | | PT [address] | | | | | | [place] | | | | | | [address] | | | | | | | | +--------+ + + + + | 08/11/ | Appointment | Home Health Services | Lisa Kearns RN | | | 2019 | | | | | +--------+ + + + + documented as of this encounter Visit Diagnoses Not on filedocumented in this encounter"
--- OUTSIDE RECORDS SUMMARY | ~2018-07-28 | XMS | Encounter Summary ---
Demographics + + + | Address | [address] | | | [place] [address] | + + + | Home Phone | | + + + | Preferred Language | Unknown | + + + | Marital Status | | + + + | Scientology Affiliation | 1041 | + + + | Race | Unknown | + + + | Ethnic Group | Unknown | + + + Author + + + | Author | [facility] | | | and [place] | + + + | Organization | [facility] | | [...] Team Providers + +------+ + | Care Director Of Analytics Name | Role | Phone | + [...] [place] | | | | | [address] | [address] | | | | | [phone] | | | +--------+ + + + [...] | | 2018 | Visit | | PETROLEUM SAMPLER [address] | | | | | | [place] | | | | | | [address] | | +--------+ + + + + | 08/01/ | Home Care | Home Health Services | | | | 2018 | Visit | | | | +--------+ + + + + | 08/01/ | Home Care | Home Health Services | Won Zafar, | | | 2018 | Visit | | PETROLEUM SAMPLER [address] | | | | | | [place] | | | | | | [address] | | +--------+ + + + + | 08/03/ | Home Care | Home Health Services | Won Zafar, | | | 2018 | Visit | | PETROLEUM SAMPLER [address] | | | | | | [place] | | | | | | [address] | | +--------+ + + + + [...] | | 2018 | Visit | | PETROLEUM SAMPLER [address] | | | | | | [place] | | | | | | [address] | | +--------+ + + + + | 08/10/ | Home Care | Home Health Services | Billy Jett, | | | 2018 | Visit | | PT [address] | | | | | | [place] | | | | | | [address] | | | | | | | | +--------+ + + + + | 08/11/ | Appointment | Home Health Services | Lisa Kearns RN | | | 2018 | | | | | +--------+ + + + + documented as of this encounter Visit Diagnoses Not on filedocumented in this encounter"
--- OUTSIDE RECORDS SUMMARY | ~2018-07-28 | XMS | Encounter Summary ---
Demographics + + + | Address | [address] | | | [place] [address] | + + + | Home Phone | | + + + | Preferred Language | Unknown | + + + | Marital Status | | + + + | Anabaptist Affiliation | 1041 | + + + | Race | Unknown | + + + | Ethnic Group | Unknown | + + + Author + + + | Author | [facility] | | | and [place] | + + + | Organization | [facility] | | | [...] Team Providers + +------+ + | Care Clinical Assistant Professor Name | Role | Phone | + [...] [place] | | | | | | [address] | | | | | | [phone] | | | +--------+ + + + [...] | | 2018 | Visit | | GAME PROTECTOR [address] | | | | | | [place] | | | | | | [address] | | +--------+ + + + + | 08/01/ | Home Care | Home Health Services | | | | 2018 | Visit | | | | +--------+ + + + + | 08/01/ | Home Care | Home Health Services | Won Zafar, | | | 2018 | Visit | | GAME PROTECTOR [address] | | | | | | [place] | | | | | | [address] | | +--------+ + + + + | 08/03/ | Home Care | Home Health Services | Won Zafar, | | | 2018 | Visit | | GAME PROTECTOR [address] | | | | | | [place] | | | | | | [address] | | +--------+ + + + + [...] | | 2018 | Visit | | GAME PROTECTOR [address] | | | | | | [place] | | | | | | [address] | | +--------+ + + + + | 08/10/ | Home Care | Home Health Services | Billy Jett, | | | 2019 | Visit | | PT [address] | | | | | | [place] | | | | | | [address] | | | | | | | | +--------+ + + + + | 08/11/ | Appointment | Home Health Services | Lisa Kearns RN | | | 2018 | | | | | +--------+ + + + + documented as of this encounter Visit Diagnoses Not on filedocumented in this encounter"
--- OUTSIDE RECORDS SUMMARY | ~2018-07-28 | XMS | Encounter Summary ---
Demographics + + + | Address | [address] | | | [place] [address] | + + + | Home Phone | | + + + | Preferred Language | Unknown | + + + | Marital Status | | + + + | Christian Affiliation | 1041 | + + + [...] Team Providers + +------+ + | Care Superior Court Clerk Name | Role | Phone | [...] + | 06/14/ | Home Care | PROV [place]ULISSA [place] | Nicole Hernandez | SN SOC ([place]) | | 2019 | Visit | [place] [address] | [place] | | | | | [place] | | | | | | [address] | | | | | | [phone] | | | +--------+ + + + [...] + + + | Blood Pressure | 84/42 | 06/14/20181112 PDT | + + + + | Pulse | 62 | 06/14/20181112 PDT | + + + + | Temperature | 36.3 C (97.4 F) | 06/14/20181112 PDT | + + + + | Respiratory Rate | 14 | 06/14/20181112 PDT | + + + + | Oxygen Saturation | 97% | 06/14/20181112 PDT | + + + [...] 06/14/20181112 PDT | + + + + documented in this encounter Plan of Treatment +--------+ + + + + | Date | Type | Specialty | Care Team | Description | +--------+ + + + + | 07/28/ | Home Care | Home Health Services | Won Zafar, | | | 2019 | Visit | | WEB PRODUCTION MANAGER [address] | | | | | | [place] | | | | | | [address] | | +--------+ + + + + | 08/01/ | Home Care | Home Health Services | | | | 2018 | Visit | | | | +--------+ + + + + | 08/01/ | Home Care | Home Health Services | Won Zafar, | | | 2018 | Visit | | WEB PRODUCTION MANAGER [address] | | | | | | [place] | | | | | | [address] | | +--------+ + + + + | 08/03/ | Home Care | Home Health Services | Won Zafar, | | | 2019 | Visit | | WEB PRODUCTION MANAGER [address] | | | | | | [place] | | | | | | [address] | | +--------+ + + + + [...] | | 2018 | Visit | | WEB PRODUCTION MANAGER [address] | | | | | | [place] | | | | | | [address] | | +--------+ + + + + | 08/10/ | Home Care | Home Health Services | Billy Jett, | | | 2018 | Visit | | PT [address] | | | | | | [place] | | | | | | [address] | | | | | | | | +--------+ + + + + | 08/11/ | Appointment | Home Health Services | Lisa Kearns RN | | | 2019 | | | | | +--------+ + + + + documented as of this encounter Visit Diagnoses Not on filedocumented in this encounter
--- OUTSIDE RECORDS SUMMARY | ~2018-07-28 | XMS | Encounter Summary ---
Demographics + + + | Address | [address] | | | [place] [address] | + + + | Home Phone | | + + + | Preferred Language | Unknown | + + + | Marital Status | | + + + | Caodaism Affiliation | 1041 | + + + | Race | Unknown | + + + | Ethnic Group | Unknown | + + + Author + + + | Author | [facility] | | | and [place] | + + + | Organization | [facility] | | [...] Team Providers + +------+ + | Care Bark Tanner Name | Role | Phone | + [...] [place] | | | | | [address] | [address] | | | | | [phone] | | | +--------+ + + + [...] | | 2018 | Visit | | SECURITIES AND REAL ESTATE DIRECTOR [address] | | | | | | [place] | | | | | | [address] | | +--------+ + + + + | 08/01/ | Home Care | Home Health Services | | | | 2018 | Visit | | | | +--------+ + + + + | 08/01/ | Home Care | Home Health Services | Won Zafar, | | | 2018 | Visit | | SECURITIES AND REAL ESTATE DIRECTOR [address] | | | | | | [place] | | | | | | [address] | | +--------+ + + + + | 08/03/ | Home Care | Home Health Services | Won Zafar, | | | 2018 | Visit | | SECURITIES AND REAL ESTATE DIRECTOR [address] | | | | | | [place] | | | | | | [address] | | +--------+ + + + + [...] | | 2018 | Visit | | SECURITIES AND REAL ESTATE DIRECTOR [address] | | | | | | [place] | | | | | | [address] | | +--------+ + + + + | 08/10/ | Home Care | Home Health Services | Billy Jett, | | | 2018 | Visit | | PT [address] | | | | | | [place] | | | | | | [address] | | | | | | | | +--------+ + + + + | 08/11/ | Appointment | Home Health Services | Lisa Kearns RN | | | 2018 | | | | | +--------+ + + + + documented as of this encounter Visit Diagnoses Not on filedocumented in this encounter"
--- OUTSIDE RECORDS SUMMARY | ~2018-07-28 | XMS | Encounter Summary ---
Demographics + + + | Address | [address] | | | [place] [address] | + + + | Home Phone [...] Team Providers + +------+ + | Care Braider Setter Name | Role | Phone | + [...] | 07/21/ | Home Care | PROV JULISAS [place] | Lisa Kearns RN | CASE COMMUNICATION | | 2018 | Visit | [place] [address] | | | | | | [place] | | | | | | [address] | | | | | | [phone] | | | +--------+ + + + [...] | | 2018 | Visit | | MOLDER FLOOR [address] | | | | | | [place] | | | | | | [address] | | +--------+ + + + + | 08/03/ | Home Care | Home Health Services | Won Zafar, | | | 2018 | Visit | | MOLDER FLOOR [address] | | | | | | [place] | | | | | | [address] | | +--------+ + + + + [...] | | 2018 | Visit | | MOLDER FLOOR [address] | | | | | | [place] | | | | | | [address] | | +--------+ + + + + | 08/10/ | Home Care | Home Health Services | Billy Jett, | | | 2018 | Visit | | PT [address] | | | | | | [place] | | | | | | [id number] | | | | | | | | +--------+ + + + + | 08/11/ | Appointment | Home Health Services | Lisa Kearns RN | | | 2018 | | | | | +--------+ + + + + documented as of this encounter Visit Diagnoses Not on filedocumented in this encounter"
--- OUTSIDE RECORDS SUMMARY | ~2018-07-28 | XMS | Encounter Summary ---
Demographics + + + | Address | [address] | | | [place] [address] | + + + | Home Phone | | + + + | Preferred Language | Unknown | + + + | Marital Status | | + + + | Latter-Day Affiliation | 1041 | + + + | Race | Unknown | + + + | Ethnic Group | Unknown | + + + Author + + + | Author | [facility] | | | and [place] | + + + | Organization | [facility] | | | [...] Team Providers + +------+ + | Care Integrated Circuit Ic Layout Designer Name | Role | Phone | [...] [place] | | | | | | [address] | | | | | | [phone] | | | +--------+ + + + [...] | | 2018 | Visit | | SOCIAL WORKER DELINQUENCY PREVENTION [address] | | | | | | [place] | | | | | | [address] | | +--------+ + + + + | 08/03/ | Home Care | Home Health Services | Won Zafar, | | | 2018 | Visit | | SOCIAL WORKER DELINQUENCY PREVENTION [address] | | | | | | [place] | | | | | | [address] | | +--------+ + + + + [...] | | 2018 | Visit | | SOCIAL WORKER DELINQUENCY PREVENTION [address] | | | | | | ST [place] | | | | | | [address] | | +--------+ + + + + | 08/10/ | Home Care | Home Health Services | Billy Jett, | | | 2018 | Visit | | PT [address] | | | | | | [place] | | | | | | [address] | | | | | | | | +--------+ + + + + | 08/11/ | Appointment | Home Health Services | Lisa Kearns RN | | | 2018 | | | | | +--------+ + + + + documented as of this encounter Visit Diagnoses Not on filedocumented in this encounter
--- OUTSIDE RECORDS SUMMARY | ~2018-07-28 | XMS | Encounter Summary ---
Demographics + + + | Address | [address] | | | [place] [address] | + + + | Home Phone | | + + + | Preferred Language | Unknown | + + + | Marital Status | | + + + | Restoration Affiliation | 1041 | + + + | Race | Unknown | + + + | Ethnic Group | Unknown | + + + Author + + + | Author | [facility] | | | and [place] | + + + | Organization | [facility] | | [...] Team Providers + +------+ + | Care Firer Watertender Name | Role | Phone | + [...] [place] | | | | | [address] | [address] | | | | | [phone] | | | +--------+ + + + [...] | | 2018 | Visit | | PATCH WORKER [address] | | | | | | [place] | | | | | | [address] | | +--------+ + + + + | 08/01/ | Home Care | Home Health Services | | | | 2018 | Visit | | | | +--------+ + + + + | 08/01/ | Home Care | Home Health Services | Won Zafar, | | | 2018 | Visit | | PATCH WORKER [address] | | | | | | [place] | | | | | | [address] | | +--------+ + + + + | 08/03/ | Home Care | Home Health Services | Won Zafar, | | | 2018 | Visit | | PATCH WORKER [address] | | | | | | [place] | | | | | | [address] | | +--------+ + + + + [...] | | 2018 | Visit | | PATCH WORKER [address] | | | | | | [place] | | | | | | [address] | | +--------+ + + + + | 08/10/ | Home Care | Home Health Services | Billy Jett, | | | 2018 | Visit | | PT [address] | | | | | | [place] | | | | | | [address] | | | | | | | | +--------+ + + + + | 08/11/ | Appointment | Home Health Services | Lisa Kearns RN | | | 2018 | | | | | +--------+ + + + + documented as of this encounter Visit Diagnoses Not on filedocumented in this encounter"
--- OUTSIDE RECORDS SUMMARY | ~2018-07-28 | XMS | Clinical Summary ---
Demographics + + + | Address | [address] | | | [place] [address] | + + + | Home Phone | | + + + | Preferred Language | Unknown | + + + | Marital Status | | + + + | Uatsdin Affiliation | 1041 | + + + [...] Team Providers + +------+ + | Care Major Gifts Manager Name | Role | Phone | [...] 03/2 | | Activ | | (MYCOSTATIN) [id number] | topically 3 times | | | [...] | | 2018 | Visit | | AUTOMOBILE TIRE BUILDER | | +--------+ + + + + [...] | | 2018 | Visit | | AUTOMOBILE TIRE BUILDER | | +--------+ + + + + | 07/07/ | Home Care | | Lisa Kearns RN | SN REPEAT VISIT | | 2018 | Visit | | | | +--------+ + + + + | 07/06/ | Home Care | | Won Zafar, | PT REPEAT VISIT | | 2018 | Visit | | AUTOMOBILE TIRE BUILDER | | +--------+ + + + + [...] | | 2019 | Visit | | AUTOMOBILE TIRE BUILDER | | +--------+ + + + + | 06/30/ | Home Care | | Won Zafar, | PT REPEAT VISIT | | 2019 | Visit | | AUTOMOBILE TIRE BUILDER | | +--------+ + + + + [...] | | 2018 | Visit | | AUTOMOBILE TIRE BUILDER [address] | | | | | | [place], [place] | | | | | | [address] | | +--------+ + + + + | 08/01/ | Home Care | | | | | 2018 | Visit | | | | +--------+ + + + + | 08/01/ | Home Care | | Won Zafar, | | | 2018 | Visit | | AUTOMOBILE TIRE BUILDER [address] | | | | | | [place] | | | | | | [address] | | +--------+ + + + + | 08/03/ | Home Care | | Won Zafar, | | | 2018 | Visit | | AUTOMOBILE TIRE BUILDER [address] | | | | | | [place], [place] | | | | | | [address] | | +--------+ + + + + [...] | | 2018 | Visit | | AUTOMOBILE TIRE BUILDER [address] | | | | | | ST [place] | | | | | | [address] | | +--------+ + + + + | 08/10/ | Home Care | | Billy Jett, | | | 2018 | Visit | | PT [address] | | | | | | [place] | | | | | | [address] | | | | | | | [...] | | 10/25/ | [id number] | | [id number]: Qty: 1 | c | Eye | - ALCN | | 2020 | 18.0 | | on 09/19/2017 by Osmra, | | | | | | /[address] | | Hannah Bloom MD | | | | | | [phone] | | | | | | | [...] - 1.030 | [facility] | | | [place] | | | [facility] | | [...] [address] | [place] | [phone] | | [facility] | | [address] | | | - LABORATORY | | [...] [address] | [place] | [phone] | | [facility] | | [address] | | | - LABORATORY | | [...] +--------+ +---------+--------+ | MEDICARE | MEDICA | [id number] | 11/27/19 | [phone] | | Medica | | | RE | | 05-Pre | 5 | | re | | | PART A | | sent | | | | | | AND B | | | | | | + +--------+ +--------+ +---------+--------+ | [facility] | IHS | [id number] | 10/29/19 | | | Indemn | | SERVICE | YELLOW | | 16-Pre | | | ity | | | HAWK | | sent | | | | + +--------+ +--------+ +---------+--------+ | MEDICAID [place] | MEDICA | [id number] | | [phone] | | Medica | [...] [place] | | | 2 (Home) | [address] | | | | | | [phone] | | | | | | | 9 (Work) | | + +--------+ +--------+ + + Advance Directives Patient has advance care planning documents, and code status on file. For more information, please contact:[facility] [place] [address] + + + + + | Code [...]
--- OUTSIDE RECORDS SUMMARY | ~2018-07-28 | XMS | Encounter Summary ---
Demographics + + + | Address | [address] | | | [place] [address] | + + + | Home Phone | | + + + | Preferred Language | Unknown | + + + | Marital Status | | + + + | Sabianist Affiliation | 1041 | + + + | Race | Unknown | + + + | Ethnic Group | Unknown | + + + Author + + + | Author | [facility] | | | and [place] | + + + | Organization | [facility] | | [...] Team Providers + +------+ + | Care Elementary School Music Teacher Name | Role | Phone | + [...] | | | | [place] | | | | | | [address] | | | | | | [phone] | | | +--------+ + + + [...] | | 2018 | Visit | | ROVING OR YARN COLOR CHECKER [address] | | | | | | [place] | | | | | | [address] | | +--------+ + + + + | 08/01/ | Home Care | Home Health Services | | | | 2018 | Visit | | | | +--------+ + + + + | 08/01/ | Home Care | Home Health Services | Won Zafar, | | | 2018 | Visit | | ROVING OR YARN COLOR CHECKER [address] | | | | | | [place] | | | | | | [address] | | +--------+ + + + + | 08/03/ | Home Care | Home Health Services | Won Zafar, | | | 2018 | Visit | | ROVING OR YARN COLOR CHECKER [address] | | | | | | [place] | | | | | | [address] | | +--------+ + + + + [...] | | 2018 | Visit | | ROVING OR YARN COLOR CHECKER [address] | | | | | | [place] | | | | | | [address] | | +--------+ + + + + | 08/10/ | Home Care | Home Health Services | Billy Jett, | | | 2018 | Visit | | PT [address] | | | | | | [place] | | | | | | [address] | | | | | | | | +--------+ + + + + | 08/11/ | Appointment | Home Health Services | Lisa Kearns RN | | | 2018 | | | | | +--------+ + + + + documented as of this encounter Visit Diagnoses Not on filedocumented in this encounter"
--- OUTSIDE RECORDS SUMMARY | ~2018-07-28 | XMS | Encounter Summary ---
Demographics + + + | Address | [address] | | | [place] [address] | + + + | Home Phone | | + + + | Preferred Language | Unknown | + + + | Marital Status | | + + + | Restorationist Affiliation | 1041 | + + + | Race | Unknown | + + + | Ethnic Group | Unknown | + + + Author + + + | Author | [facility] | | | and [place] | + + + | Organization | [facility] | | [...] Team Providers + +------+ + | Care Chick Room Supervisor Name | Role | Phone | [...] + | 07/20/ | Home Care | PROV JULISSA [place] | Aliya Jerome, | TELEPHONE ENCOUNTER | | 2018 | Visit | [place] [address] | [place] | | | | | [place] | | | | | | [address] | | | | | | [phone] | | | +--------+ + + + [...] | 2018 | Visit | | METAL RECLAMATION KETTLE TENDER [address] | | | | | | [place] | | | | | | [address] | | +--------+ + + + + | 08/03/ | Home Care | Home Health Services | Won Zafar, | | | 2018 | Visit | | METAL RECLAMATION KETTLE TENDER [address] | | | | | | [place] | | | | | | [address] | | +--------+ + + + + [...] | 2018 | Visit | | METAL RECLAMATION KETTLE TENDER [address] | | | | | | [place] | | | | | | [address] | | +--------+ + + + + | 08/10/ | Home Care | Home Health Services | Billy Jett, | | | 2018 | Visit | | PT [address] | | | | | | [place] | | | | | | [address] | | | | | | | | +--------+ + + + + | 08/11/ | Appointment | Home Health Services | Lisa Kearns RN | | | 2019 | | | | | +--------+ + + + + documented as of this encounter Visit Diagnoses Not on filedocumented in this encounter"
--- OUTSIDE RECORDS SUMMARY | ~2018-07-28 | XMS | Encounter Summary ---
Demographics + + + | Address | [address] | | | [place] [address] | + + + | Home Phone | | + + + | Preferred Language | Unknown | + + + | Marital Status | | + + + | Mosque Affiliation | 1041 | + + + | Race | Unknown | + + + | Ethnic Group | Unknown | + + + Author + + + | Author | [facility] | | | and [place] | + + + | Organization | [facility] | | | [...] Team Providers + +------+ + | Care Slider Assembler Name | Role | Phone | [...] [place] | | | | | | [address] | | | | | | [phone] | | | +--------+ + + + [...] | | 2019 | Visit | | FRUIT PICKER MACHINE OPERATOR [address] | | | | | | [place] | | | | | | [address] | | +--------+ + + + + | 08/01/ | Home Care | Home Health Services | | | | 2018 | Visit | | | | +--------+ + + + + | 08/01/ | Home Care | Home Health Services | Won Zafar, | | | 2018 | Visit | | FRUIT PICKER MACHINE OPERATOR [address] | | | | | | [place] | | | | | | [address] | | +--------+ + + + + | 08/03/ | Home Care | Home Health Services | Won Zafar, | | | 2018 | Visit | | FRUIT PICKER MACHINE OPERATOR [address] | | | | | | [place] | | | | | | [address] | | +--------+ + + + + [...] | | 2018 | Visit | | FRUIT PICKER MACHINE OPERATOR [address] | | | | | | [place] | | | | | | [address] | | +--------+ + + + + | 08/10/ | Home Care | Home Health Services | Billy Jett, | | | 2018 | Visit | | PT [address] | | | | | | [place] | | | | | | [address] | | | | | | | | +--------+ + + + + | 08/11/ | Appointment | Home Health Services | Lisa Kearns RN | | | 2018 | | | | | +--------+ + + + + documented as of this encounter Visit Diagnoses Not on filedocumented in this encounter"
--- OUTSIDE RECORDS SUMMARY | ~2018-07-28 | XMS | Encounter Summary ---
Demographics + + + | Address | [address] | | | [place] [address] | + + + | Home Phone | | + + + | Preferred Language | Unknown | + + + | Marital Status | | + + + | Mormon Affiliation | 1041 | + + + | Race | Unknown | + + + | Ethnic Group | Unknown | + + + Author + + + | Author | [facility] | | | and [place] | + + + | Organization | [facility] | | [...] Team Providers + +------+ + | Care Sterile Products Processor Name | Role | Phone | + [...] | | | | [place] | | | | | | [address] | | | | | | [phone] | | | +--------+ + + + [...] | | 2018 | Visit | | OPERATIONS PLANNER [address] | | | | | | [place] | | | | | | [address] | | +--------+ + + + + | 08/01/ | Home Care | Home Health Services | | | | 2018 | Visit | | | | +--------+ + + + + | 08/01/ | Home Care | Home Health Services | Won Zafar, | | | 2018 | Visit | | OPERATIONS PLANNER [address] | | | | | | [place] | | | | | | [address] | | +--------+ + + + + | 08/03/ | Home Care | Home Health Services | Won Zafar, | | | 2018 | Visit | | OPERATIONS PLANNER [address] | | | | | | [place] | | | | | | [address] | | +--------+ + + + + | 08/04/ | Home Care | Home Health Services | Lisa Kearns RN | | | 2019 | Visit | | | | +--------+ + + + + | 08/08/ | Home Care | Home Health Services | Lisa Kearsn RN | | | 2019 | Visit | | | | +--------+ + + + + | 08/08/ | Home Care | Home Health Services | Won Zafar, | | | 2018 | Visit | | OPERATIONS PLANNER [address] | | | | | | [place] | | | | | | [address] | | +--------+ + + + + | 08/10/ | Home Care | Home Health Services | Billy Jett, | | | 2018 | Visit | | PT [address] | | | | | | [place] | | | | | | [address] | | | | | | | | +--------+ + + + + | 08/11/ | Appointment | Home Health Services | Lisa Kearns RN | | | 2018 | | | | | +--------+ + + + + documented as of this encounter Visit Diagnoses Not on filedocumented in this encounter"
--- OUTSIDE RECORDS SUMMARY | ~2018-07-28 | XMS | Encounter Summary ---
Demographics + + + | Address | [address] | | | [place] [address] | + + + | Home Phone | | + + + | Preferred Language | Unknown | + + + | Marital Status | | + + + | Adventist Affiliation | 1041 | + + + [...] Providers + +------+ + | Care Product Distribution Specialist Name | Role | Phone | [...] [place] | | | | | | [address] | | | | | | [phone] | | | +--------+ + + + [...] | | 2019 | Visit | | STRUCTURAL IRON ERECTOR [address] | | | | | | [place] | | | | | | [address] | | +--------+ + + + + | 08/01/ | Home Care | Home Health Services | | | | 2018 | Visit | | | | +--------+ + + + + | 08/01/ | Home Care | Home Health Services | Won Zafar, | | | 2018 | Visit | | STRUCTURAL IRON ERECTOR [address] | | | | | | [place] | | | | | | [address] | | +--------+ + + + + | 08/03/ | Home Care | Home Health Services | Won Zafar, | | | 2018 | Visit | | STRUCTURAL IRON ERECTOR [address] | | | | | | [place] | | | | | | [address] | | +--------+ + + + + [...] | | 2018 | Visit | | STRUCTURAL IRON ERECTOR [address] | | | | | | [place] | | | | | | [address] | | +--------+ + + + + | 08/10/ | Home Care | Home Health Services | Billy Jett, | | | 2019 | Visit | | PT [address] | | | | | | [place] | | | | | | [address] | | | | | | | | +--------+ + + + + | 08/11/ | Appointment | Home Health Services | Lisa Kearns RN | | | 2019 | | | | | +--------+ + + + + documented as of this encounter Visit Diagnoses Not on filedocumented in this encounter"
--- OUTSIDE RECORDS SUMMARY | ~2018-07-28 | XMS | Clinical Summary ---
Demographics + + + | Address | [address] | | | [place] [address] | + + + | Home Phone | | + + + | Preferred Language | Unknown | + + + | Marital Status | Unknown | + + + | Methodist Affiliation | 1041 | + + + | Race | Unknown | + + + | Ethnic Group | Unknown | + + + Author + + + | Author | [facility] | + + + | Organization | [email or web address] [facility] | + + + | Address [...] Team Providers + +------+ + | Care Wood Cabinetmaker Name | Role | Phone | + [...] + + + | Current use of jail anticoagulation | 10/10/2017 | + + + [...] | | | | | [place] [address] | | | | | | [phone] | | | | | | | [...] +------+-------+ + | MEDICARE | MEDICA | [id number] | | | [address] | | | RE | | | | [place] [address] | | | IP-OP | | | | | + +--------+ +------+-------+ + | MEDICAID | MEDICA | [id number] | | | [address] | | | ID | | | | [place] | | | [place] | | | | [address] | + +--------+ +------+-------+ + | /[facility] | YELLOW | [id number] | | | | | PLANS | [...] [place]ALES | al/[place] | | 1946 | [phone] [place] | | | [place] | | | [phone] | [phone] | + +--------+ +--------+ + +
--- OUTSIDE RECORDS SUMMARY | ~2018-07-28 | XMS | Encounter Summary ---
Demographics + + + | Address | [address] | | | [place] [address] | + + + | Home Phone | | + + + | Preferred Language | Unknown | + + + | Marital Status | | + + + | Druze Affiliation | 1041 | + + + | Race | Unknown | + + + | Ethnic Group | Unknown | + + + Author + + + | Author | [facility] | | | and [place] | + + + | Organization | [facility] | | [...] Team Providers + +------+ + | Care Admission Nurse Coordinator Name | Role | Phone | [...] [place] | | | | | | [address] | | | | | | [phone] | | | +--------+ + + + [...] | | 2019 | Visit | | SERGEANT MISSILE CREWMAN [address] | | | | | | [place] | | | | | | [address] | | +--------+ + + + + | 08/01/ | Home Care | Home Health Services | | | | 2018 | Visit | | | | +--------+ + + + + | 08/01/ | Home Care | Home Health Services | Won Zafar, | | | 2018 | Visit | | SERGEANT MISSILE CREWMAN [address] | | | | | | [place] | | | | | | [address] | | +--------+ + + + + | 08/03/ | Home Care | Home Health Services | Won Zafar, | | | 2018 | Visit | | SERGEANT MISSILE CREWMAN [address] | | | | | | [place] | | | | | | [address] | | +--------+ + + + + [...] | | 2018 | Visit | | SERGEANT MISSILE CREWMAN [address] | | | | | | [place] | | | | | | [address] | | +--------+ + + + + | 08/10/ | Home Care | Home Health Services | Billy Jett, | | | 2018 | Visit | | PT [address] | | | | | | [place] | | | | | | [address] | | | | | | | | +--------+ + + + + | 08/11/ | Appointment | Home Health Services | Lisa Kearns RN | | | 2019 | | | | | +--------+ + + + + documented as of this encounter Visit Diagnoses Not on filedocumented in this encounter"
--- OUTSIDE RECORDS SUMMARY | ~2018-07-28 | XMS | Encounter Summary ---
Demographics + + + | Address | [address] | | | [place] [address] | + + + | Home Phone [...] Team Providers + +------+ + | Care Lap Grinder Name | Role | Phone | + [...] Visit | [place] [address] | BUSHEL WORKER [address] | | | | | [place], [place] | [place] | | | | | [address] | [address] | | | | | [phone] | | | +--------+ + + + [...] | | 2018 | Visit | | BUSHEL WORKER [address] | | | | | | [place] | | | | | | [address] | | +--------+ + + + + | 08/01/ | Home Care | Home Health Services | | | | 2018 | Visit | | | | +--------+ + + + + | 08/01/ | Home Care | Home Health Services | Won Zafar, | | | 2018 | Visit | | BUSHEL WORKER [address] | | | | | | [place] | | | | | | [address] | | +--------+ + + + + | 08/03/ | Home Care | Home Health Services | Won Zafar, | | | 2018 | Visit | | BUSHEL WORKER [address] | | | | | | [place] | | | | | | [address] | | +--------+ + + + + [...] | | 2018 | Visit | | BUSHEL WORKER [address] | | | | | | [place] | | | | | | [address] | | +--------+ + + + + | 08/10/ | Home Care | Home Health Services | Billy Jett, | | | 2018 | Visit | | PT [address] | | | | | | [place] | | | | | | [address] | | | | | | | | +--------+ + + + + | 08/11/ | Appointment | Home Health Services | Lisa Kearns RN | | | 2018 | | | | | +--------+ + + + + documented as of this encounter Visit Diagnoses Not on filedocumented in this encounter"
--- OUTSIDE RECORDS SUMMARY | ~2018-07-28 | XMS | Encounter Summary ---
Demographics + + + | Address | [address] | | | [place] [address] | + + + | Home Phone | | + + + | Preferred Language | Unknown | + + + | Marital Status | | + + + | Worship Affiliation | 1041 | + + + | Race | Unknown | + + + | Ethnic Group | Unknown | + + + Author + + + | Author | [facility] | | | and [place] | + + + | Organization | [facility] | | [...] Team Providers + +------+ + | Care Hi Ranger Operator Name | Role | Phone | [...] Home Health | | 2019 | | [facility] | E, DO [address] | | | | | [facility] [address] | [place], [place] | | | | | [address] [place], | [address] | | | | | [place] [address] | [phone] | | | | | [phone] | | | +--------+ + + + [...] | | 2018 | Visit | | ANESTHESIOLOGY CRNA [address] | | | | | | [place] | | | | | | [address] | | +--------+ + + + + | 08/01/ | Home Care | Home Health Services | | | | 2019 | Visit | | | | +--------+ + + + + | 08/01/ | Home Care | Home Health Services | Won Zafar, | | | 2018 | Visit | | ANESTHESIOLOGY CRNA [address] | | | | | | [place] | | | | | | [address] | | +--------+ + + + + | 08/03/ | Home Care | Home Health Services | Won Zafar, | | | 2018 | Visit | | ANESTHESIOLOGY CRNA [address] | | | | | | [place] | | | | | | [address] | | +--------+ + + + + [...] | | 2018 | Visit | | ANESTHESIOLOGY CRNA [address] | | | | | | [place] | | | | | | [address] | | +--------+ + + + + | 08/10/ | Home Care | Home Health Services | Billy Jett, | | | 2018 | Visit | | PT [address] | | | | | | [place] | | | | | | [address] | | | | | | | | +--------+ + + + + | 08/11/ | Appointment | Home Health Services | Lisa Kearns RN | | | 2019 | | | | | +--------+ + + + + documented as of this encounter Visit Diagnoses Not on filedocumented in this encounter"
--- OUTSIDE RECORDS SUMMARY | ~2018-07-28 | XMS | Encounter Summary ---
Demographics + + + | Address | [address] | | | [place] [address] | + + + | Home Phone [...] + + + | Author | [facility] | | | and [place] | + + + | Organization | [facility] | | | [...] Team Providers + +------+ + | Care Head Athletic Trainer Name | Role | Phone | + [...] Visit | [place] [address] | GAUGE AND INSTRUMENT INSPECTOR [address] | | | | | [place], [place] | [facility] [place] | | | | | [address] | [address] | | | | | [phone] | | | +--------+ + + + [...] | | 2018 | Visit | | GAUGE AND INSTRUMENT INSPECTOR [address] | | | | | | [place] | | | | | | [address] | | +--------+ + + + + | 08/03/ | Home Care | Home Health Services | Won Zafar, | | | 2018 | Visit | | GAUGE AND INSTRUMENT INSPECTOR [address] | | | | | | [place] | | | | | | [address] | | +--------+ + + + + [...] | | 2018 | Visit | | GAUGE AND INSTRUMENT INSPECTOR [address] | | | | | | [place] | | | | | | [address] | | +--------+ + + + + | 08/10/ | Home Care | Home Health Services | Billy Jett, | | | 2018 | Visit | | PT [address] | | | | | | [place] | | | | | | [address] | | | | | | | | +--------+ + + + + | 08/11/ | Appointment | Home Health Services | Lisa Kearns RN | | | 2018 | | | | | +--------+ + + + + documented as of this encounter Visit Diagnoses Not on filedocumented in this encounter"
--- OUTSIDE RECORDS SUMMARY | ~2018-07-28 | XMS | Encounter Summary ---
Demographics + + + | Address | [address] | | | [place] [address] | + + + | Home Phone | | + + + | Preferred Language | Unknown | + + + | Marital Status | | + + + | Tenriism Affiliation | 1041 | + + + | Race | Unknown | + + + | Ethnic Group | Unknown | + + + Author + + + | Author | [facility] | | | and [place] | + + + | Organization | [facility] | | | [...] Team Providers + +------+ + | Care Marine Rigger Name | Role | Phone | + [...] [place] | | | | | | [address] | | | | | | [phone] | | | +--------+ + + + [...] | | 2019 | Visit | | RED CROSS WORKER [address] | | | | | | [place] | | | | | | [address] | | +--------+ + + + + | 08/01/ | Home Care | Home Health Services | | | | 2018 | Visit | | | | +--------+ + + + + | 08/01/ | Home Care | Home Health Services | Won Zafar, | | | 2018 | Visit | | RED CROSS WORKER [address] | | | | | | [place] | | | | | | [address] | | +--------+ + + + + | 08/03/ | Home Care | Home Health Services | Won Zafar, | | | 2018 | Visit | | RED CROSS WORKER [address] | | | | | | [place] | | | | | | [address] | | +--------+ + + + + [...] | | 2018 | Visit | | RED CROSS WORKER [address] | | | | | | [place] | | | | | | [address] | | +--------+ + + + + | 08/10/ | Home Care | Home Health Services | Billy Jett, | | | 2018 | Visit | | PT [address] | | | | | | [place] | | | | | | [address] | | | | | | | | +--------+ + + + + | 08/11/ | Appointment | Home Health Services | Lisa Kearns RN | | | 2019 | | | | | +--------+ + + + + documented as of this encounter Visit Diagnoses Not on filedocumented in this encounter"
--- OUTSIDE RECORDS SUMMARY | ~2018-07-28 | XMS | Encounter Summary ---
Demographics + + + | Address | [address] | | | [place] [address] | + + + | Home Phone [...] Team Providers + +------+ + | Care Glassblower Name | Role | Phone | + [...] [place] | | | | | | [address] | | | | | | [phone] | | | +--------+ + + + [...] | | 2018 | Visit | | GRAY MIXING OPERATOR [address] | | | | | | [place] | | | | | | [address] | | +--------+ + + + + | 08/01/ | Home Care | Home Health Services | | | | 2018 | Visit | | | | +--------+ + + + + | 08/01/ | Home Care | Home Health Services | Won Zafar, | | | 2018 | Visit | | GRAY MIXING OPERATOR [address] | | | | | | [place] | | | | | | [address] | | +--------+ + + + + | 08/03/ | Home Care | Home Health Services | Won Zafar, | | | 2018 | Visit | | GRAY MIXING OPERATOR [address] | | | | | | [place] | | | | | | [address] | | +--------+ + + + + [...] | | 2018 | Visit | | GRAY MIXING OPERATOR [address] | | | | | | [place] | | | | | | [address] | | +--------+ + + + + | 08/10/ | Home Care | Home Health Services | Billy Jett, | | | 2019 | Visit | | PT [address] [facility] | | | | | | [place] | | | | | | [address] | | | | | | | | +--------+ + + + + | 08/11/ | Appointment | Home Health Services | Lisa Kearns RN | | | 2019 | | | | | +--------+ + + + + documented as of this encounter Visit Diagnoses Not on filedocumented in this encounter"
--- OUTSIDE RECORDS SUMMARY | ~2018-07-28 | XMS | Encounter Summary ---
Demographics + + + | Address | [address] | | | [place] [address] | + + + | Home Phone | | + + + | Preferred Language | Unknown | + + + | Marital Status | | + + + | Jehovah'S Witness Affiliation | 1041 | + + + | Race | Unknown | + + + | Ethnic Group | Unknown | + + + Author + + + | Author | [facility] | | | and [place] | + + + | Organization | [facility] | | | and [...] Team Providers + +------+ + | Care Strategic Client Executive Name | Role | Phone | + [...] [place] | | | | | [address] | [address] | | | | | [phone] | | | +--------+ + + + [...] | | 2018 | Visit | | ELECTRONIC FUNDS TRANSFER COORDINATOR [address] | | | | | | [place] | | | | | | [address] | | +--------+ + + + + | 08/01/ | Home Care | Home Health Services | | | | 2018 | Visit | | | | +--------+ + + + + | 08/01/ | Home Care | Home Health Services | Won Zafar, | | | 2018 | Visit | | ELECTRONIC FUNDS TRANSFER COORDINATOR [address] | | | | | | [place] | | | | | | [address] | | +--------+ + + + + | 08/03/ | Home Care | Home Health Services | Won Zafar, | | | 2018 | Visit | | ELECTRONIC FUNDS TRANSFER COORDINATOR [address] | | | | | | [place] | | | | | | [address] | | +--------+ + + + + [...] | | 2018 | Visit | | ELECTRONIC FUNDS TRANSFER COORDINATOR [address] | | | | | | [place] | | | | | | [address] | | +--------+ + + + + | 08/10/ | Home Care | Home Health Services | Billy Jett, | | | 2018 | Visit | | PT [address] | | | | | | [place] | | | | | | [address] | | | | | | | | +--------+ + + + + | 08/11/ | Appointment | Home Health Services | Lisa Kearns RN | | | 2018 | | | | | +--------+ + + + + documented as of this encounter Visit Diagnoses Not on filedocumented in this encounter"
--- OUTSIDE RECORDS SUMMARY | ~2018-07-28 | XMS | Encounter Summary ---
Demographics + + + | Address | [address] | | | [place] [address] | + + + | Home Phone | | + + + | Preferred Language | Unknown | + + + | Marital Status | | + + + | Advent Affiliation | 1041 | + + + | Race | Unknown | + + + | Ethnic Group | Unknown | + + + Author + + + | Author | [facility] | | | and [place] | + + + | Organization | [facility] | | | and [place] | + + + | Address | Unknown | + + + | Phone | Unavailable | + + + Support + + +---------+ + | Name | Relationship | Address | Phone | + + +---------+ + | Girish Donato | ECON | Unknown | | + + +---------+ + | Shaklia Rosas | ECON | Unknown | | + + +---------+ + Care Team Providers + +------+ + | Care Sample Patternmaker Name | Role | Phone | + [...] [place] | | | | | | [address] | | | | | | [phone] | | | +--------+ + + + [...] | | 2019 | Visit | | UNDERWATER ROBOTICIST [address] | | | | | | [place] | | | | | | [address] | | +--------+ + + + + | 08/01/ | Home Care | Home Health Services | | | | 2018 | Visit | | | | +--------+ + + + + | 08/01/ | Home Care | Home Health Services | Won Zafar, | | | 2018 | Visit | | UNDERWATER ROBOTICIST [address] | | | | | | [place] | | | | | | [address] | | +--------+ + + + + | 08/03/ | Home Care | Home Health Services | Won Zafar, | | | 2018 | Visit | | UNDERWATER ROBOTICIST [address] | | | | | | [place] | | | | | | [address] | | +--------+ + + + + [...] | | 2018 | Visit | | UNDERWATER ROBOTICIST [address] | | | | | | [place] | | | | | | [address] | | +--------+ + + + + | 08/10/ | Home Care | Home Health Services | Billy Jett, | | | 2018 | Visit | | PT [address] | | | | | | [place] | | | | | | [address] | | | | | | | | +--------+ + + + + | 08/11/ | Appointment | Home Health Services | Lias Kearns RN | | | 2019 | | | | | +--------+ + + + + documented as of this encounter Visit Diagnoses Not on filedocumented in this encounter"
--- OUTSIDE RECORDS SUMMARY | ~2018-07-28 | XMS | Encounter Summary ---
Demographics + + + | Address | [address] | | | [place] [address] | + + + | Home Phone | | + + + | Preferred Language | Unknown | + + + | Marital Status | | + + + | Buddhist Affiliation | 1041 | + + + | Race | Unknown | + + + | Ethnic Group | Unknown | + + + Author + + + | Author | [facility] | | | and [place] | + + + | Organization | [facility] | | [...] Team Providers + +------+ + | Care Special Procedures Technologist Name | Role | Phone | [...] [place] | | | | | | [address] | | | | | | [phone] | | | +--------+ + + + [...] | | 2018 | Visit | | LAUNDRY PRESSER [address] | | | | | | [place] | | | | | | [address] | | +--------+ + + + + | 08/03/ | Home Care | Home Health Services | Won Zafar, | | | 2018 | Visit | | LAUNDRY PRESSER [address] | | | | | | [place] | | | | | | [address] | | +--------+ + + + + [...] | | 2018 | Visit | | LAUNDRY PRESSER [address] | | | | | | [place] | | | | | | [address] | | +--------+ + + + + | 08/10/ | Home Care | Home Health Services | Billy Jett, | | | 2018 | Visit | | PT [address] | | | | | | [place] | | | | | | [address] | | | | | | | | +--------+ + + + + | 08/11/ | Appointment | Home Health Services | Lisa Kearns RN | | | 2018 | | | | | +--------+ + + + + documented as of this encounter Visit Diagnoses Not on filedocumented in this encounter"
--- OUTSIDE RECORDS SUMMARY | ~2018-07-28 | XMS | Encounter Summary ---
Demographics + + + | Address | [address] | | | [place] [address] | + + + | Home Phone | | + + + | Preferred Language | Unknown | + + + | Marital Status | | + + + | Restorationism Affiliation | 1041 | + + + | Race | Unknown | + + + | Ethnic Group | Unknown | + + + Author + + + | Author | [facility] | | | and [place] | + + + | Organization | [facility] | | [...] Team Providers + +------+ + | Care Package Dyer Name | Role | Phone | + [...] | | [address] [place], | [address] | | | | | [place] [address] | [phone] | | | | | [phone] | | | +--------+ + + + [...] | | 2018 | Visit | | POST SECONDARY PROFESSIONAL [address] | | | | | | [place] | | | | | | [address] | | +--------+ + + + + | 08/01/ | Home Care | Home Health Services | | | | 2018 | Visit | | | | +--------+ + + + + | 08/01/ | Home Care | Home Health Services | Won Zafar, | | | 2018 | Visit | | POST SECONDARY PROFESSIONAL [address] | | | | | | [place] | | | | | | [address] | | +--------+ + + + + | 08/03/ | Home Care | Home Health Services | Won Zafar, | | | 2018 | Visit | | POST SECONDARY PROFESSIONAL [address] | | | | | | [place] | | | | | | [address] | | +--------+ + + + + [...] | | 2018 | Visit | | POST SECONDARY PROFESSIONAL [address] | | | | | | [place] | | | | | | [address] | | +--------+ + + + + | 08/10/ | Home Care | Home Health Services | Billy Jett, | | | 2019 | Visit | | PT [address] | | | | | | [place] | | | | | | [address] | | | | | | | | +--------+ + + + + | 08/11/ | Appointment | Home Health Services | Lisa Kearns RN | | | 2018 | | | | | +--------+ + + + + documented as of this encounter Visit Diagnoses Not on filedocumented in this encounter"
--- OUTSIDE RECORDS SUMMARY | ~2018-07-28 | XMS | Encounter Summary ---
Demographics + + + | Address | [address] | | | [place] [address] | + + + | Home Phone | | + + + | Preferred Language | Unknown | + + + | Marital Status | | + + + | Mandaen Affiliation | 1041 | + + + | Race | Unknown | + + + | Ethnic Group | Unknown | + + + Author + + + | Author | [facility] | | | and [place] | + + + | Organization | [facility] | | | [...] Team Providers + +------+ + | Care Lanolin Plant Operator Name | Role | Phone | [...] Home Health | | 2019 | | [facility] | E, DO [address] | | | | | [facility] [address] | [place], [place] | | | | | [address] [place], | [address] | | | | | [place] [address] | [phone] | | | | | [phone] | | | +--------+ + + + [...] | | 2018 | Visit | | ORACLE ASCP CONSULTANT [address] | | | | | | [place] | | | | | | [address] | | +--------+ + + + + | 08/01/ | Home Care | Home Health Services | | | | 2019 | Visit | | | | +--------+ + + + + | 08/01/ | Home Care | Home Health Services | Won Zafar, | | | 2018 | Visit | | ORACLE ASCP CONSULTANT [address] | | | | | | [place] | | | | | | [address] | | +--------+ + + + + | 08/03/ | Home Care | Home Health Services | Won Zafar, | | | 2018 | Visit | | ORACLE ASCP CONSULTANT [address] | | | | | | [place] | | | | | | [address] | | +--------+ + + + + [...] | | 2018 | Visit | | ORACLE ASCP CONSULTANT [address] | | | | | | [place] | | | | | | [address] | | +--------+ + + + + | 08/10/ | Home Care | Home Health Services | Billy Jett, | | | 2018 | Visit | | PT [address] | | | | | | [place] | | | | | | [address] | | | | | | | | +--------+ + + + + | 08/11/ | Appointment | Home Health Services | Lisa Kearns RN | | | 2019 | | | | | +--------+ + + + + documented as of this encounter Visit Diagnoses Not on filedocumented in this encounter"
--- OUTSIDE RECORDS SUMMARY | ~2018-07-28 | XMS | Encounter Summary ---
Demographics + + + | Address | [address] | | | [place] [address] | + + + | Home Phone | | + + + | Preferred Language | Unknown | + + + | Marital Status | | + + + | Tenriism Affiliation | 1041 | + + + | Race | Unknown | + + + | Ethnic Group | Unknown | + + + Author + + + | Author | [facility] | | | and [place] | + + + | Organization | [facility] | | | [...] Team Providers + +------+ + | Care Tongue Lining Stitcher Name | Role | Phone | + [...] Visit | [place] [address] | PROJECT DEVELOPMENT COORDINATOR [address] | | | | | [place] | [place] | | | | | [address] | [address] | | | | | [phone] | | | +--------+ + + + [...] | | 2018 | Visit | | PROJECT DEVELOPMENT COORDINATOR [address] | | | | | | [place] | | | | | | [address] | | +--------+ + + + + | 08/03/ | Home Care | Home Health Services | Won Zafar, | | | 2018 | Visit | | PROJECT DEVELOPMENT COORDINATOR [address] | | | | | | [place] | | | | | | [address] | | +--------+ + + + + [...] | | 2018 | Visit | | PROJECT DEVELOPMENT COORDINATOR [address] | | | | | | [place] | | | | | | [address] | | +--------+ + + + + | 08/10/ | Home Care | Home Health Services | Billy Jett, | | | 2019 | Visit | | PT [address] | | | | | | [place] | | | | | | [address] | | | | | | | | +--------+ + + + + | 08/11/ | Appointment | Home Health Services | Lisa Kearns RN | | | 2018 | | | | | +--------+ + + + + documented as of this encounter Visit Diagnoses Not on filedocumented in this encounter"
--- OUTSIDE RECORDS SUMMARY | ~2018-07-28 | XMS | Encounter Summary ---
Demographics + + + | Address | [address] | | | [place] [address] | + + + | Home Phone | | + + + | Preferred Language | Unknown | + + + | Marital Status | | + + + | Episcopalian Affiliation | 1041 | + + + [...] Team Providers + +------+ + | Care Chief Strategy Officer Name | Role | Phone | + [...] [place] | | | | | | [address] | | | | | | [phone] | | | +--------+ + + + [...] | | 2019 | Visit | | PBX MECHANIC [address] | | | | | | [place] | | | | | | [address] | | +--------+ + + + + | 08/01/ | Home Care | Home Health Services | | | | 2018 | Visit | | | | +--------+ + + + + | 08/01/ | Home Care | Home Health Services | Won Zafar, | | | 2018 | Visit | | PBX MECHANIC [address] | | | | | | [place] | | | | | | [address] | | +--------+ + + + + | 08/03/ | Home Care | Home Health Services | Won Zafar, | | | 2019 | Visit | | PBX MECHANIC [address] | | | | | | [place] | | | | | | [address] | | +--------+ + + + + [...] | | 2018 | Visit | | PBX MECHANIC [address] | | | | | | [place] | | | | | | [address] | | +--------+ + + + + | 08/10/ | Home Care | Home Health Services | Billy Jett, | | | 2018 | Visit | | PT [address] | | | | | | [place] | | | | | | [address] | | | | | | | | +--------+ + + + + | 08/11/ | Appointment | Home Health Services | Lisa Kearns RN | | | 2019 | | | | | +--------+ + + + + documented as of this encounter Visit Diagnoses Not on filedocumented in this encounter
--- OUTSIDE RECORDS SUMMARY | ~2018-07-28 | XMS | Encounter Summary ---
Demographics + + + | Address | [address] | | | [place] [address] | + + + | Home Phone [...] Team Providers + +------+ + | Care Congregational Care Pastor Name | Role | Phone | + [...] [place] | | | | | | [address] | | | | | | [phone] | | | +--------+ + + + [...] | | 2018 | Visit | | SUPERVISOR CAR AND YARD [address] | | | | | | [place] | | | | | | [address] | | +--------+ + + + + | 08/01/ | Home Care | Home Health Services | | | | 2018 | Visit | | | | +--------+ + + + + | 08/01/ | Home Care | Home Health Services | Won Zafar, | | | 2018 | Visit | | SUPERVISOR CAR AND YARD [address] | | | | | | [place] | | | | | | [address] | | +--------+ + + + + | 08/03/ | Home Care | Home Health Services | Won Zafar, | | | 2018 | Visit | | SUPERVISOR CAR AND YARD [address] | | | | | | [place] | | | | | | [address] | | +--------+ + + + + [...] Home Care | Home Health Services | oWn Zafar, | | | 2018 | Visit | | SUPERVISOR CAR AND YARD [address] | | | | | | [place] | | | | | | [address] | | +--------+ + + + + | 08/10/ | Home Care | Home Health Services | Billy Jett, | | | 2018 | Visit | | PT [address] | | | | | | [place] | | | | | | [address] | | | | | | | | +--------+ + + + + | 08/11/ | Appointment | Home Health Services | Lisa Kearns RN | | 2018 | | | | | +--------+ + + + + documented as of this encounter Visit Diagnoses Not on filedocumented in this encounter"
--- OUTSIDE RECORDS SUMMARY | ~2018-07-28 | XMS | Encounter Summary ---
Demographics + + + | Address | [address] | | | [place] [address] | + + + | Home Phone | | + + + | Preferred Language | Unknown | + + + | Marital Status | | + + + | Rastafarian Affiliation | 1041 | + + + [...] Team Providers + +------+ + | Care Mailing Specialist Name | Role | Phone | [...] [place] | | | | | | [address] | | | | | | [phone] | | | +--------+ + + + [...] | | 2018 | Visit | | HEAD START TEACHER [address] | | | | | | [place] | | | | | | [address] | | +--------+ + + + + | 08/03/ | Home Care | Home Health Services | Won Zafar, | | | 2018 | Visit | | HEAD START TEACHER [address] | | | | | | [place] | | | | | | [address] | | +--------+ + + + + [...] | | 2018 | Visit | | HEAD START TEACHER [address] | | | | | | [place] | | | | | | [address] | | +--------+ + + + + | 08/10/ | Home Care | Home Health Services | Billy Jett, | | | 2018 | Visit | | PT [address] | | | | | | [place] | | | | | | [address] | | | | | | | | +--------+ + + + + | 08/11/ | Appointment | Home Health Services | Lisa Kearns RN | | | 2019 | | | | | +--------+ + + + + documented as of this encounter Visit Diagnoses Not on filedocumented in this encounter"
--- OUTSIDE RECORDS SUMMARY | ~2018-07-28 | XMS | Encounter Summary ---
Demographics + + + | Address | [address] | | | [place] [address] | + + + | Home Phone | | + + + | Preferred Language | Unknown | + + + | Marital Status | | + + + | Methodist Affiliation | 1041 | + + + | Race | Unknown | + + + | Ethnic Group | Unknown | + + + Author + + + | Author | [facility] | | | and [place] | + + + | Organization | [facility] | | | [...] Team Providers + +------+ + | Care Fur Joiner Name | Role | Phone | + [...] Visit | [place] [address] | AUTO FINANCE SALES REP [address] | | | | | [place] | [place] | | | | | [address] | [address] | | | | | [phone] | | | +--------+ + + + [...] | | 2018 | Visit | | AUTO FINANCE SALES REP [address] | | | | | | [place] | | | | | | [address] | | +--------+ + + + + | 08/03/ | Home Care | Home Health Services | Won Zafar, | | | 2019 | Visit | | AUTO FINANCE SALES REP [address] | | | | | | [place] | | | | | | [address] | | +--------+ + + + + [...] | | 2018 | Visit | | AUTO FINANCE SALES REP [address] | | | | | | [place] | | | | | | [address] | | +--------+ + + + + 08/10/ | Home Care | Home Health Services | Billy Jett, | | | 2018 | Visit | | PT [address] | | | | | | [place] | | | | | | [address] | | | | | | | | +--------+ + + + + | 08/11/ | Appointment | Home Health Services | Lisa Kearns RN | | | 2019 | | | | | +--------+ + + + + documented as of this encounter Visit Diagnoses Not on filedocumented in this encounter"
--- OUTSIDE RECORDS SUMMARY | ~2018-07-28 | XMS | Encounter Summary ---
Demographics + + + | Address | [address] | | | [place] [address] | + + + | Home Phone | | + + + | Preferred Language | Unknown | + + + | Marital Status | | + + + | Muslim Affiliation | 1041 | + + + | Race | Unknown | + + + | Ethnic Group | Unknown | + + + Author + + + | Author | [facility] | | | and [place] | + + + | Organization | [facility] | | [...] Team Providers + +------+ + | Care Sap Gatherer Name | Role | Phone | + [...] | | | | [place] | | | | | | [address] | | | | | | [phone] | | | +--------+ + + + [...] | | 2018 | Visit | | FARM EQUIPMENT MECHANIC [address] | | | | | | [place] | | | | | | [address] | | +--------+ + + + + | 08/01/ | Home Care | Home Health Services | | | | 2018 | Visit | | | | +--------+ + + + + | 08/01/ | Home Care | Home Health Services | Won Zafar, | | | 2018 | Visit | | FARM EQUIPMENT MECHANIC [address] | | | | | | [place] | | | | | | [address] | | +--------+ + + + + | 08/03/ | Home Care | Home Health Services | Won Zafar, | | | 2018 | Visit | | FARM EQUIPMENT MECHANIC [address] | | | | | | [place] | | | | | | [address] | | +--------+ + + + + [...] | | 2018 | Visit | | FARM EQUIPMENT MECHANIC [address] | | | | | | [place] | | | | | | [address] | | +--------+ + + + + | 08/10/ | Home Care | Home Health Services | Billy Jett, | | | 2018 | Visit | | PT [address] | | | | | | [place] | | | | | | [address] | | | | | | | | +--------+ + + + + | 08/11/ | Appointment | Home Health Services | Lisa Kearns RN | | | 2018 | | | | | +--------+ + + + + documented as of this encounter Visit Diagnoses Not on filedocumented in this encounter"
--- OUTSIDE RECORDS SUMMARY | ~2018-07-28 | XMS | Encounter Summary ---
Demographics + + + | Address | [address] | | | [place] [address] | + + + | Home Phone | | + + + | Preferred Language | Unknown | + + + | Marital Status | | + + + | Nondenominational Affiliation [...] Team Providers + +------+ + | Care Community Relations Advisor Name | Role | Phone | [...] + | 07/28/ | Home Care | PROV [place] | Lisa Kearns RN | SN REPEAT VISIT | | 2018 | Visit | [place] [address] | | | | | | [place] | | | | | | [address] | | | | | | [phone] | | | +--------+ + + + [...] + + + | Blood Pressure | 88/40 | 07/28/2018948 PDT | + + + + | Pulse | 52 | 07/28/2018948 PDT | + + + + | Temperature | 36.4 C (97.5 F) | 07/28/2018948 PDT | + + + + | Respiratory Rate | 16 | 07/28/2018948 PDT | + + + + | Oxygen Saturation | - | - | + + + + | Inhaled [...] | | 2018 | Visit | | AUTOMAT WATCHER [address] | | | | | | [place] | | | | | | [address] | | +--------+ + + + + | 08/03/ | Home Care | Home Health Services | Won Zafar, | | | 2018 | Visit | | AUTOMAT WATCHER [address] | | | | | | [place] | | | | | | [address] | | +--------+ + + + + [...] | | 2018 | Visit | | AUTOMAT WATCHER [address] | | | | | | [place] | | | | | | [address] | | +--------+ + + + + | 08/10/ | Home Care | Home Health Services | Billy Jett, | | | 2018 | Visit | | PT [address] | | | | | | [place] | | | | | | [address] | | | | | | | | +--------+ + + + + | 08/11/ | Appointment | Home Health Services | Lisa Kearns RN | | | 2018 | | | | | +--------+ + + + + documented as of this encounter Visit Diagnoses Not on filedocumented in this encounter"
--- OUTSIDE RECORDS SUMMARY | ~2018-07-28 | XMS | Encounter Summary ---
Demographics + + + | Address | [address] | | | [place] [address] | + + + | Home Phone | | + + + | Preferred Language | Unknown | + + + | Marital Status | | + + + | Nondenominational Affiliation | 1041 | + + + | Race | Unknown | + + + | Ethnic Group | Unknown | + + + Author + + + | Author | [facility] | | | and [place] | + + + | Organization | [facility] | | [...] Team Providers + +------+ + | Care Aerodynamics Professor Name | Role | Phone | [...] [place] | | | | | | [address] | | | | | | [phone] | | | +--------+ + + + [...] | 2018 | Visit | | AUTO BRAKE TECHNICIAN [address] | | | | | | [place] | | | | | | [address] | | +--------+ + + + + | 08/01/ | Home Care | Home Health Services | | | | 2018 | Visit | | | | +--------+ + + + + | 08/01/ | Home Care | Home Health Services | Won Zafar, | | | 2018 | Visit | | AUTO BRAKE TECHNICIAN [address] | | | | | | [place] | | | | | | [address] | | +--------+ + + + + | 08/03/ | Home Care | Home Health Services | Won Zafar, | | | 2018 | Visit | | AUTO BRAKE TECHNICIAN [address] | | | | | | [place] | | | | | | [address] | | +--------+ + + + + [...] | 2018 | Visit | | AUTO BRAKE TECHNICIAN [address] | | | | | | [place] | | | | | | [address] | | +--------+ + + + + | 08/10/ | Home Care | Home Health Services | Billy Jett, | | | 2019 | Visit | | PT [address] | | | | | | [place] | | | | | | [address] | | | | | | | | +--------+ + + + + | 08/11/ | Appointment | Home Health Services | Lisa Kearns RN | | | 2019 | | | | | +--------+ + + + + documented as of this encounter Visit Diagnoses Not on filedocumented in this encounter"
--- OUTSIDE RECORDS SUMMARY | ~2018-07-28 | XMS | Encounter Summary ---
Demographics + + + | Address | [address] | | | [place] [address] | + + + | Home Phone [...] Team Providers + +------+ + | Care Biztalk Administrator Name | Role | Phone | + [...] Visit | [place] [address] | PROFESSOR OF ENVIRONMENTAL ENGINEERING [address] | | | | | [place], [place] | [place], [place] | | | | | [address] | [address] | | | | | [phone] | | | +--------+ + + + [...] | | 2018 | Visit | | PROFESSOR OF ENVIRONMENTAL ENGINEERING [address] | | | | | | ST [place] | | | | | | [address] | | +--------+ + + + + | 08/03/ | Home Care | Home Health Services | Won Zafar, | | | 2018 | Visit | | PROFESSOR OF ENVIRONMENTAL ENGINEERING [address] | | | | | | [place] | | | | | | [address] | | +--------+ + + + + [...] | | 2018 | Visit | | PROFESSOR OF ENVIRONMENTAL ENGINEERING [address] | | | | | | [place] | | | | | | [address] | | +--------+ + + + + | 08/10/ | Home Care | Home Health Services | Billy Jett, | | | 2019 | Visit | | PT [address] | | | | | | [place] | | | | | | [address] | | | | | | | | +--------+ + + + + | 08/11/ | Appointment | Home Health Services | Lisa Kearns RN | | | 2018 | | | | | +--------+ + + + + documented as of this encounter Visit Diagnoses Not on filedocumented in this encounter"
--- OUTSIDE RECORDS SUMMARY | ~2018-07-28 | XMS | Clinical Summary ---
Demographics + + + | Address | [address] | | | [place] [address] | + + + | Home Phone [...] Team Providers + +------+ + | Care Deliverer Merchandise Name | Role | Phone | + [...] 03/2 | | Activ | | (MYCOSTATIN) [id number] | topically 3 times | | | [...] + | 05/03/ | Home Care | | Lisa Kearns [...] DAY) | +--------+ + + + + | [...] +--------+ + + + + 07/18/ | Home Care | | Lisa Kearns RN | SN REPEAT VISIT | | 2018 | Visit | | | | +--------+ + + + 07/18/ | Home Care | | Won Zafar, | TELEPHONE ENCOUNTER | | 2018 | Visit | | BACTERIOLOGY RESEARCH ASSISTANT | | +--------+ + + + + | 07/18/ | Telephone | | Oscar Hodgson | Home Health | | 2019 | | | E, DO | | +--------+ + + + + | 07/18/ | Lab | | Juan Mcclain, | Urinary tract | | 2018 | Requisition | | DO | infection | +--------+ + + + + | 07/14/ | Home Care | | Lisa Kearns RN | REPEAT VISIT | | 2018 | Visit | | | | +--------+ + + + + 07/12/ | Home Care | | Billy Jett, | PT REPEAT VISIT | | 2019 | Visit | | PT | | +--------+ + + + + | 07/11/ | Home Care | | Lisa Kearns RN | SN REPEAT VISIT | | 2018 | Visit | | | | +--------+ + + + + | 07/11/ | Home Care | | Won Zafar, | PT REPEAT VISIT | | 2018 | Visit | | BACTERIOLOGY RESEARCH ASSISTANT | | +--------+ + + + + | 07/07/ | Home Care | | Lisa Kearns RN | SN REPEAT VISIT | | 2018 | Visit | | | | +--------+ + + + + | 07/06/ | Home Care | | Won Zafar, | PT REPEAT VISIT | | 2019 | Visit | | BACTERIOLOGY RESEARCH ASSISTANT | | +--------+ + + + + | 07/06/ | Telephone | | Oscar Hodgson | Treatment Order | | 2018 | | | E, DO | (verbal [...] | | 2018 | Visit | | BACTERIOLOGY RESEARCH ASSISTANT | | +--------+ + + + + | 06/30/ | Home Care | | Won Zafar, | PT REPEAT VISIT | | 2019 | Visit | | BACTERIOLOGY RESEARCH ASSISTANT | | +--------+ + + + + [...] 06/27/ | Home Care | | Nadia Mclean, PT | CASE COMMUNICATION | | 2018 | Visit | | | | +--------+ + + + + | 06/26/ | Home Care | | Billy Jett, | PT SECONDARY EVAL | | 2018 | Visit [...] | Aliya Jerome, | TELEPHONE ENCOUNTER | 2018 | Visit | | RN | | +--------+ + + + + | 06/14/ | Home Care | | Nicole Hernandez | SOC (OASIS) | | 2018 | Visit [...] | | 2018 | Visit | | BACTERIOLOGY RESEARCH ASSISTANT [address] | | | | | | [place] | | | | | | [address] | | +--------+ + + + + | 08/03/ | Home Care | | Won Zafar, | | | 2018 | Visit | | BACTERIOLOGY RESEARCH ASSISTANT [address] | | | | | | [place] | | | | | | [address] | | +--------+ + + + + [...] | | 2018 | Visit | | BACTERIOLOGY RESEARCH ASSISTANT [address] | | | | | | [place] | | | | | | [address] | | +--------+ + + + + | 08/10/ | Home Care | | Billy Jett, | | | 2018 | Visit | | PT [address] | | | | | | [place] | | | | | | [phone] | | | | | | | [...] | | 10/25/ | [id number] | | [id number]: Qty: 1 | c | Eye | - [facility] | | 2020 | 18.0 | | on 09/19/2017 by Osmar, | | | | | | /[id number] | | Hannah Bloom MD | | | | | | [phone] | | | | | | | [...] | | | | Yellow, Straw | [facility] | | | | [...] - 1.030 | [facility] | | | [facility] | | | [facility] | | [...] | | Urine | | | [facility] | | | | | | [facility] | | | | | | [facility] - | | | | | | LABORATORY | | + + + + + + | Glucose, | Negative | Negative | [facility] | | | Urine | | | [facility] | | | | | | [...] | [address] | [place] | [phone] | | [facility] | | [address] | | | - LABORATORY | | | | + + + + + Culture, Urine (07/18/2018 10:30 PDT) + + + + + + | Component | Value | Ref Range | Performed | Pathologist | | | | | At | Signature | + + + + + + | Culture | [facility] | | [facility] | | | | | | [facility] | | | | | | [...] ST. | [address] | [place] | [phone] | | [facility] | | [address] | | | - LABORATORY | | [...] +--------+ +---------+--------+ | MEDICARE | MEDICA | [id number] | 11/27/19 | [phone] | | Medica | | | RE | | 05-Pre | 5 | | re | | | PART A | | sent | | | | | | AND B | | | | | | + +--------+ +--------+ +---------+--------+ | [facility] | [facility] | [id number] | 10/29/19 | | | Indemn | | SERVICE | YELLOW | | 16-Pre | | | ity | | | HAWK | | sent | | | | + +--------+ +--------+ +---------+--------+ | MEDICAID [place] | MEDICA | [id number] | | [phone] | | Medica | [...] Person | Self | [birth year] [address] | | Teja Jameson L | sandro/Finesse | | 1946 | [phone] | [place] | | | ramez | | | 2 (Home) | [address] | | | | | | [phone] | | | | | | | 9 (Work) | | + +--------+ +--------+ + + Advance Directives Patient has advance care planning documents, and code status on file. For more information, please contact:[facility] [place] [address] + + + + + | Code [...]
--- OUTSIDE RECORDS SUMMARY | ~2018-07-28 | XMS | Encounter Summary ---
Demographics + + + | Address | [address] | | | [place] [address] | + + + | Home Phone [...] Team Providers + +------+ + | Care Brokerage Branch Manager Name | Role | Phone | [...] Visit | [place] [address] | SLOT ATTENDANT [address] | | | | | [place], [place] | ST [facility], [place] | | | | | [address] | [address] | | | | | [phone] | | | +--------+ + + + [...] | | 2018 | Visit | | SLOT ATTENDANT [address] | | | | | | [place] | | | | | | [address] | | +--------+ + + + + | 08/01/ | Home Care | Home Health Services | | | | 2018 | Visit | | | | +--------+ + + + + | 08/01/ | Home Care | Home Health Services | Won Zafar, | | | 2018 | Visit | | SLOT ATTENDANT [address] | | | | | | [place] | | | | | | [address] | | +--------+ + + + + | 08/03/ | Home Care | Home Health Services | Won Zafar, | | | 2018 | Visit | | SLOT ATTENDANT [address] | | | | | | [place] | | | | | | [address] | | +--------+ + + + + [...] | | 2018 | Visit | | SLOT ATTENDANT [address] | | | | | | [place] | | | | | | [address] | | +--------+ + + + + | 08/10/ | Home Care | Home Health Services | Billy Jett, | | | 2018 | Visit | | PT [address] | | | | | | [place] | | | | | | [address] | | | | | | | | +--------+ + + + + | 08/11/ | Appointment | Home Health Services | Lisa Kearns RN | | | 2018 | | | | | +--------+ + + + + documented as of this encounter Visit Diagnoses Not on filedocumented in this encounter"
--- OUTSIDE RECORDS SUMMARY | ~2018-07-28 | XMS | Encounter Summary ---
Demographics + + + | Address | [address] | | | [place] [address] | + + + | Home Phone | | + + + | Preferred Language | Unknown | + + + | Marital Status | | + + + | Yazidism Affiliation | 1041 | + + + | Race | Unknown | + + + | Ethnic Group | Unknown | + + + Author + + + | Author | [facility] | | | and [place] | + + + | Organization | [facility] | | | [...] Team Providers + +------+ + | Care Qc Lab Technician Name | Role | Phone | [...] | | [address] [place], | [address] | | | | | [place] [address] | [phone] | | | | | [phone] | | | +--------+ + + + [...] | | 2018 | Visit | | SKIN TOGGLER [address] | | | | | | [place] | | | | | | [address] | | +--------+ + + + + | 08/01/ | Home Care | Home Health Services | | | | 2018 | Visit | | | | +--------+ + + + + | 08/01/ | Home Care | Home Health Services | Won Zafar, | | | 2018 | Visit | | SKIN TOGGLER [address] | | | | | | [place] | | | | | | [address] | | +--------+ + + + + | 08/03/ | Home Care | Home Health Services | Won Zafar, | | | 2018 | Visit | | SKIN TOGGLER [address] | | | | | | [place] | | | | | | [address] | | +--------+ + + + + [...] | | 2018 | Visit | | SKIN TOGGLER [address] | | | | | | [place] | | | | | | [address] | | +--------+ + + + + | 08/10/ | Home Care | Home Health Services | Billy Jett, | | | 2019 | Visit | | PT [address] | | | | | | [place] | | | | | | [address] | | | | | | | | +--------+ + + + + | 08/11/ | Appointment | Home Health Services | Lisa Kerans RN | | | 2018 | | | | | +--------+ + + + + documented as of this encounter Visit Diagnoses Not on filedocumented in this encounter"
--- OUTSIDE RECORDS SUMMARY | ~2018-07-28 | XMS | Encounter Summary ---
Demographics + + + | Address | [address] | | | [place] [address] | + + + | Home Phone | | + + + | Preferred Language | Unknown | + + + | Marital Status | | + + + | Religion Affiliation | 1041 | + + + | Race | Unknown | + + + | Ethnic Group | Unknown | + + + Author + + + | Author | [facility] | | | and [place] | + + + | Organization | [facility] | | [...] Team Providers + +------+ + | Care Suction Drum Drier Operator Name | Role | Phone | [...] [place] | | | | | | [address] | | | | | | [phone] | | | +--------+ + + + [...] | | 2018 | Visit | | LAB MANAGER [address] | | | | | | [place] | | | | | | [address] | | +--------+ + + + + | 08/03/ | Home Care | Home Health Services | Won Zafar, | | | 2018 | Visit | | LAB MANAGER [address] | | | | | | [place] | | | | | | [address] | | +--------+ + + + + [...] | | 2018 | Visit | | LAB MANAGER [address] | | | | | | [place] | | | | | | [address] | | +--------+ + + + + | 08/10/ | Home Care | Home Health Services | Billy Jett, | | | 2018 | Visit | | PT [address] | | | | | | [place] | | | | | | [address] | | | | | | | | +--------+ + + + + | 08/11/ | Appointment | Home Health Services | Lisa Kearns RN | | | 2018 | | | | | +--------+ + + + + documented as of this encounter Visit Diagnoses Not on filedocumented in this encounter"
--- OUTSIDE RECORDS SUMMARY | ~2018-07-28 | XMS | Encounter Summary ---
Demographics + + + | Address | [address] | | | [place] [address] | + + + | Home Phone | | + + + | Preferred Language | Unknown | + + + | Marital Status | | + + + | Uatsdin Affiliation | 1041 | + + + | Race | Unknown | + + + | Ethnic Group | Unknown | + + + Author + + + | Author | [facility] | | | and [place] | + + + | Organization | [facility] | | [...] Team Providers + +------+ + | Care Spooling Supervisor Name | Role | Phone | [...] [place] | | | | | | [address] | | | | | | [phone] | | | +--------+ + + + [...] | | 2018 | Visit | | PUBLICATIONS INSPECTOR [address] | | | | | | [place] | | | | | | [address] | | +--------+ + + + + | 08/01/ | Home Care | Home Health Services | | | | 2018 | Visit | | | | +--------+ + + + + | 08/01/ | Home Care | Home Health Services | Won Zafar, | | | 2018 | Visit | | PUBLICATIONS INSPECTOR [address] | | | | | | [place] | | | | | | [address] | | +--------+ + + + + | 08/03/ | Home Care | Home Health Services | Won Zafar, | | | 2018 | Visit | | PUBLICATIONS INSPECTOR [address] | | | | | | [place] | | | | | | [address] | | +--------+ + + + + [...] | | 2018 | Visit | | PUBLICATIONS INSPECTOR [address] | | | | | | [place] | | | | | | [address] | | +--------+ + + + + | 08/10/ | Home Care | Home Health Services | Billy Jett, | | | 2019 | Visit | | PT [address] | | | | | | [place] | | | | | | [address] | | | | | | | | +--------+ + + + + | 08/11/ | Appointment | Home Health Services | Lisa Kearns RN | | | 2019 | | | | | +--------+ + + + + documented as of this encounter Visit Diagnoses Not on filedocumented in this encounter"
[~2018-07-28 11:23] MED LIST changes: +DICYCLOMINE HCL20 MG PO; +DILTIAZEM ER180 M2 PO; +METOPROLOL TART25 MG PO; +MS CONTIN30 MG PO; +ROPINIROLE HCL0.5 MG PO
--- OUTSIDE RECORDS SUMMARY | 2018-07-28 11:26 | XMS ---
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 E.D. VISIT COUNT (12 MO.) 1 SYDNEE Baltazar TOTAL 1 NOTE: Visits indicate total known visits. ED/UCC VISIT TRACKING (12 MO.) 07/28/2018 11:23 SYDNEE Davila [place] TYPE: Emergency COMPLAINT: - POSS KIDNEY ISSUE INPATIENT VISIT TRACKING (12 MO.) No inpatient visits to display in this time frame [id number]"
[2018-07-28] MEDS ORDERED: DIGITEK125 MCG PO (13:19)
[2018-07-28] MEDS ORDERED: ONDANSETRON ODT4 MG PO (13:21)
[2018-07-28] MEDS ORDERED: BISOPROLOL FUMA10 MG PO (13:22)
[2018-07-28] MEDS ORDERED: LOPERAMIDE2 MG PO (13:28)
[2018-07-28] MEDS ORDERED: MACROBID 100 M100 MG PO (13:29)
[2018-07-28] MEDS ORDERED: TUMS200 MG PO (13:30)
[2018-07-28] MEDS ORDERED: MULTI VITAMIN1 EACH PO (13:31)
[2018-07-28] MEDS ORDERED: NYSTATIN15 GM TOP (14:06)
[2018-07-28] MEDS ORDERED: OXYCODONE-ACET1 EAC3 PO (17:31)
[2018-07-28] MEDS ORDERED: POTASSIUM CHLO10 MEQ PO (17:34)
[2018-07-28] MEDS ORDERED: ROPINIROLE HCL1 MG PO (17:36)
--- NOTE | 2018-07-28 20:55 | EKG ---
[facility] [address] [place] [address] Signed Atrial fibrillation with slow ventricular response Indeterminate axis Low voltage QRS Cannot rule out Inferior infarct , age undetermined Possible Anterolateral infarct (cited on or before 22-MAY-2017) Abnormal ECG When compared with ECG of 23-MAY-2017 07:41, Vent. rate has decreased BY 50 BPM Nonspecific T wave abnormality, worse in Inferior leads Nonspecific T wave abnormality now evident in Anterolateral leads QT has shortened Confirmed by JULY THURSTON DO ([id number]) on 07/28/2018 8:55:02 PM Electronically Signed By: JULY THURSTON DO 07/28/182054 PATIENT NAME: TIM MOMIN ABHAY Electrocardiogram DATE OF : 41 PHYSICIAN: JULY THURSTON DO REPORT #: [id number] REPORT IS CONFIDENTIAL AND NOT TO BE RELEASED WITHOUT AUTHORIZATION
== END 2018-07-28 23:43 | disposition short-term general hospital (02) | DRG 308 ==
LOC: ED 11:23 → CCU 16:17
PROVIDERS: ADMIT Student in an Organized Health Care Education/Training Program
PROC: 3E033XZ Introduction of Vasopressor into Peripheral Vein, Percutaneous Approach (ICD-10-PCS; principal; 2018-07-28)
DX: I48.1 Persistent atrial fibrillation (principal); L89.153 Pressure ulcer of sacral region, stage 3; R57.0 Cardiogenic shock; N39.0 Urinary tract infection, site not specified; I50.22 Chronic systolic (congestive) heart failure; F11.20 Opioid dependence, uncomplicated; I11.0 Hypertensive heart disease with heart failure; E03.9 Hypothyroidism, unspecified; R39.15 Urgency of urination; F39 Unspecified mood [affective] disorder; G25.81 Restless legs syndrome; K21.9 Gastro-esophageal reflux disease without esophagitis; G89.4 Chronic pain syndrome; Z74.01 Bed confinement status; Z86.73 Personal history of transient ischemic attack (TIA), and cerebral infarction without residual deficits; Z79.2 Long term (current) use of antibiotics; Z79.02 Long term (current) use of antithrombotics/antiplatelets; Z79.891 Long term (current) use of opiate analgesic; Z79.899 Other long term (current) drug therapy; Z88.3 Allergy status to other anti-infective agents; Z88.5 Allergy status to narcotic agent; Z88.0 Allergy status to penicillin
CPT/HCPCS: 51702; 71045; 80053; 80162; 81001; 83605; 83735; 83880; 85025; 85610; 87077; 87088; 87186; 93005; 93010; 99285-25; J0696; J1162; J7030; J7040; J7120; P9047